=== PATIENT | male | born 1985 | race African-American/Black ===

== ENCOUNTER 2016-08-26 11:42 | Emergency (ER) | payer MEDICAID ==
[~2016-08-26] VITALS: Ht 147.3 cm; Wt 46.7 kg
[~2016-08-26 11:42] MED LIST: ACULAR 3 ML3 ML OPH; AMINOPHYLLIN200 MG PO; BLACK DRAUGHT PO; CALCIUM500 MG PO; CEFUROXIME AXE250 MG PO; CINNAMON ALPHA1 EACH PO; CIPRO500 MG PO; CIPROFLOXACIN500 M4 PO; CIPROFLOXACIN500 MG PO; CLARITIN10 MG PO; COLACE100 MG PO; FERROUS SULFAT325 M1 PO; FLUCONAZOLE100 MG PO; GLUCERNA 1.01500 ML PO; HUMULIN R100 U/ML; HUMULIN R100 U/ML SC; LANTUS100 U/ML SC; LEVEMIR10 ML SC; M2 ZINC 5050 MG PO; MACROBID100 M1 PO; MEGACE PO; MEGACE40 MG PO; MEGACE400 MG/10 PO; MIRALAX17 GM PO; MIRALAX17 GM/DOSE PO; MIRALAX17 GM/PACK PO; MOM30 ML PO; MULTIPLE VITAMI1 CAP PO; MYLANTA 150 ML150 M1 PO; Motrin,Rufen800 MG PO; NORVASC5 MG PO; NOVOLIN 70/30 710 ML; NOVOLIN R100 U/ML SC; NOVOLOG 70/30 M10 ML SC; NOVOLOG FLEX100 U/ML SC; NOVOLOG MIX 70/10 ML SC; NOVOLOG MIX 70/33 ML SC; ONDANSETRON4 M1 PO; ONE-TABLET-DAI1 EACH PO; OXY IR5 MG PO; OXYCODONE HCL5 M1 PO; OYSTER CALCIUM500 M1 PO; PAXIL20 MG PO; PAXIL40 M1 PO; PERCOCET 325 MG1 TA1 PO; PREDNISOLONE; PREDNISONE10 MG PO; SENNA CONCENTR8.6 M1 PO; VITAMIN C500 M4 PO; ZESTRIL10 MG PO; ZITHROMAX Z PA250 MG PO; ZOFRAN ODT4 MG SL; [UNRECOGNIZED DRUG - OTHER] TP
[2016-08-26] MEDS ORDERED: SENEXON-S 50 MG1 TAB PO (11:53)
[2016-08-26] MEDS ORDERED: HEALTHYLAX17 GM/Dose PO (11:53)
[2016-08-26 12:48] LABS: BUN 17 mg/dl (7-24); CARBON DIOXIDE 19 mmol/L (21-32); CHLORIDE 113 mmol/L (98-107); EST GLOM FILT AFRICAN AMERICAN > 60 ml/min; GLUCOSE 232 mg/dL (65-99); POTASSIUM 4.6 mmol/L (3.5-5.1); SODIUM 143 mmol/L (136-145)
[2016-08-26 12:59] LABS: HEMOGLOBIN 12.5 g/dl (14.0-18.0); MEAN CELL VOLUME 83.1 fl (80.0-94.0); MEAN CORPUSCULAR HGB 28.1 pg (27.0-31.0); MEAN CORPUSCULAR HGB CONC 33.8 g/dl (33.0-37.0); MEAN PLATELET VOLUME 10.2 fl (9.6-12.3); NUCLEATED RED BLOOD CELL 0.1 10*3/uL (0.0-0.0); NUCLEATED RED BLOOD CELL 1.6 % (0.0-0.0); PLATELET COUNT AUTOMATED 176 10*3/uL (130-400); RED BLOOD COUNT 4.45 10*6/uL (4.50-5.90); WHITE BLOOD COUNT 3.7 10*3/uL (4.8-10.8)
[2016-08-26 13:26] LABS: EOSINOPHIL # 0.1 10*3/uL (0-0.4); EOSINOPHILS 2 % (1-4); LYMPHOCYTE # 1.3 10*3/uL (1.3-4.4); MONOCYTE # 0.6 10*3/uL (0.1-1.0); NEUTROPHIL # 1.7 10*3/uL (2.3-7.9); NEUTROPHILS 47 % (47-73); TOTAL CELLS COUNTED 100 #CELLS
[2016-08-26 13:27] LABS: PLATELET SUFFICIENCY NORMAL (NORMAL)
[2016-08-26] MEDS ORDERED: ZITHROMAX250 MG PO (14:41)
[2016-09-20] MEDS ORDERED: CEFUROXIME AXE250 MG PO (20:47)
[2016-09-20] MEDS ORDERED: FLUCONAZOLE100 MG PO (20:47)
[2016-09-28] MEDS ORDERED: DOXYCYCLINE100 M3 PO (11:14)
[2016-09-28] MEDS ORDERED: FLUCONAZOLE100 MG PO (11:15)
[2016-10-01] MEDS ORDERED: CIPRO500 MG PO (09:05)
== END 2016-08-26 14:53 | disposition home or self-care (01) ==
LOC: ED 11:42
PROVIDERS: Emergency Medicine
DX: J40 Bronchitis, not specified as acute or chronic (principal); E11.65 Type 2 diabetes mellitus with hyperglycemia; Z90.49 Acquired absence of other specified parts of digestive tract; Z79.4 Long term (current) use of insulin; Z88.1 Allergy status to other antibiotic agents; Z88.2 Allergy status to sulfonamides; Z88.6 Allergy status to analgesic agent; Z91.040 Latex allergy status

== ENCOUNTER 2016-08-28 19:45 | Emergency (ER) | payer MEDICAID ==
[~2016-08-28] VITALS: Ht 147.3 cm; Wt 45.4 kg
[~2016-08-28 19:45] MED LIST changes: +HEALTHYLAX17 GM/Dose PO; +SENEXON-S 50 MG1 TAB PO; +ZITHROMAX250 MG PO
[2016-08-28 20:18] LABS: BASO % 0.2 % (0.0-1.0); EOS # 0.1 10*3/uL (0.0-0.4); EOS % 1.4 % (1.0-4.0); HEMATOCRIT 33.8 % (42.0-52.0); HEMOGLOBIN 11.3 g/dl (14.0-18.0); LYMPH # 1.1 10*3/uL (1.3-4.4); LYMPH % 26.7 % (27.0-41.0); MEAN CELL VOLUME 83.3 fl (80.0-94.0); MEAN CORPUSCULAR HGB 27.8 pg (27.0-31.0); MEAN CORPUSCULAR HGB CONC 33.4 g/dl (33.0-37.0); MEAN PLATELET VOLUME 10.2 fl (9.6-12.3); MONO # 0.4 10*3/uL (0.1-1.0); NEUT # 2.6 10*3/uL (2.3-7.9); NEUT % 61.5 % (47.0-73.0); PLATELET COUNT AUTOMATED 170 10*3/uL (130-400); RED BLOOD COUNT 4.06 10*6/uL (4.50-5.90); RED CELL DISTRI WIDTH 15.9 % (0-14.5); WHITE BLOOD COUNT 4.2 10*3/uL (4.8-10.8)
[2016-08-28 20:34] LABS: ALBUMIN 3.1 gm/dl (3.1-4.5); ALKALINE PHOSPHATASE 146 U/L (45-117); BILIRUBIN, TOTAL 0.4 mg/dl (0.2-1.0); BUN 16 mg/dl (7-24); CARBON DIOXIDE 20 mmol/L (21-32); CHLORIDE 100 mmol/L (98-107); EST GLOM FILT AFRICAN AMERICAN > 60 ml/min; GLUCOSE 327 mg/dL (65-99); POTASSIUM 4.1 mmol/L (3.5-5.1); SGOT/AST 17 IU/L (3-35); SGPT/ALT 25 U/L (12-78); SODIUM 132 mmol/L (136-145); TOTAL PROTEIN 7.2 gm/dL (6.4-8.2)
[2016-08-28] MEDS ORDERED: ROBITUSSIN AC 110 ML PO (21:08)
[2016-09-20] MEDS ORDERED: CEFUROXIME AXE250 MG PO (20:47)
[2016-09-20] MEDS ORDERED: FLUCONAZOLE100 MG PO (20:47)
[2016-09-28] MEDS ORDERED: DOXYCYCLINE100 M3 PO (11:14)
[2016-09-28] MEDS ORDERED: FLUCONAZOLE100 MG PO (11:15)
[2016-10-01] MEDS ORDERED: CIPRO500 MG PO (09:05)
== END 2016-08-28 22:18 | disposition home or self-care (01) ==
LOC: ED 19:45
PROVIDERS: Nurse Practitioner Family
DX: J06.9 Acute upper respiratory infection, unspecified (principal); D64.9 Anemia, unspecified; E10.9 Type 1 diabetes mellitus without complications; Z88.1 Allergy status to other antibiotic agents; Z91.040 Latex allergy status; Z88.6 Allergy status to analgesic agent; Z88.8 Allergy status to other drugs, medicaments and biological substances; Z79.899 Other long term (current) drug therapy

== ENCOUNTER → 2016-11-19 | Emergency (ER) | payer MEDICAID ==
[~2016-11-19] MED LIST changes: +DOXYCYCLINE100 M3 PO; +ROBITUSSIN AC 110 ML PO
[2016-11-19 12:43] LABS: BILIRUBIN NEGATIVE (NEGATIVE); BLOOD TRACE-INTACT (NEGATIVE); CLARITY CLOUDY (CLEAR); COLOR YELLOW (YELLOW); GLUCOSE 3+ (NEGATIVE); KETONE 1+ (NEGATIVE); NITRITE POSITIVE (NEGATIVE); PROTEIN TRACE (NEGATIVE); UROBILINOGEN 0.2 E.U./dl (0.2-1.0)
[2016-11-19 12:45] LABS: LEUKO ESTERASE NEGATIVE (NEGATIVE)
[2016-11-19 12:52] LABS: EPITHELIAL CELLS 0-2; RBC 0-2 rbc/hpf (0-2); WBC 0-2 wbc/hpf (0-5); YEAST 4+
[2016-11-19 12:53] LABS: URINE REFLEX COMMENT YES (NO)
[2016-11-19 13:11] LABS: BASO % 0.2 % (0.0-1.0); EOS # 0.1 10*3/uL (0.0-0.4); EOS % 1.6 % (1.0-4.0); HEMATOCRIT 37.1 % (42.0-52.0); HEMOGLOBIN 12.2 g/dl (14.0-18.0); LYMPH # 1.3 10*3/uL (1.3-4.4); LYMPH % 26.7 % (27.0-41.0); MEAN CELL VOLUME 89.2 fl (80.0-94.0); MEAN CORPUSCULAR HGB 29.3 pg (27.0-31.0); MEAN CORPUSCULAR HGB CONC 32.9 g/dl (33.0-37.0); MEAN PLATELET VOLUME 9.8 fl (9.6-12.3); MONO # 0.3 10*3/uL (0.1-1.0); MONO % 6.3 % (3.0-9.0); NEUT # 3.2 10*3/uL (2.3-7.9); NEUT % 64.8 % (47.0-73.0); PLATELET COUNT AUTOMATED 231 10*3/uL (130-400); RED BLOOD COUNT 4.16 10*6/uL (4.50-5.90); RED CELL DISTRI WIDTH 14.4 % (0-14.5)
[2016-11-19 13:27] LABS: ALBUMIN 2.9 gm/dl (3.1-4.5); ALKALINE PHOSPHATASE 255 U/L (45-117); BILIRUBIN, TOTAL 0.6 mg/dl (0.2-1.0); BUN 15 mg/dl (7-24); CARBON DIOXIDE 20 mmol/L (21-32); CHLORIDE 106 mmol/L (98-107); EST GLOM FILT AFRICAN AMERICAN > 60 ml/min; GLUCOSE 352 mg/dL (65-99); POTASSIUM 4.1 mmol/L (3.5-5.1); SGOT/AST 20 IU/L (3-35); SGPT/ALT 41 U/L (12-78); SODIUM 143 mmol/L (136-145); TOTAL PROTEIN 7.3 gm/dL (6.4-8.2)
== END ==
LOC: ED 12:11
PROVIDERS: Student in an Organized Health Care Education/Training Program
DX: B37.89 Other sites of candidiasis (principal); N39.0 Urinary tract infection, site not specified; E11.9 Type 2 diabetes mellitus without complications; F12.10 Cannabis abuse, uncomplicated; Z88.1 Allergy status to other antibiotic agents; Z88.2 Allergy status to sulfonamides; Z88.6 Allergy status to analgesic agent; Z91.040 Latex allergy status; Z79.4 Long term (current) use of insulin; Z93.6 Other artificial openings of urinary tract status

== ENCOUNTER 2016-11-24 14:34 | Emergency (ER) | payer MEDICAID ==
[~2016-11-24] VITALS: Ht 175.2 cm; Wt 68.0 kg
--- NOTE | ~2016-11-24 | EKG ---
[place], [place] ELECTROCARDIOGRAM REPORT NAME: REGINO CELIS UNIT #: [id number] ROOM: DOCTOR: IVAN PITTS MD BIRTHDATE: [birth year] DOS: 11/24/2016 TIME: 1522 hours. Normal sinus rhythm at 97 beats per minute. The tracing is normal. No previous tracing is available for comparison. IVAN PITTS MD CM:EKGRPT:ELECTROCARDIOGRAM REPORT [id number] IVAN PITTS MD
[2016-11-24 15:55] LABS: HEMOGLOBIN 11.9 g/dl (14.0-18.0); MEAN CELL VOLUME 85.8 fl (80.0-94.0); MEAN CORPUSCULAR HGB 29.2 pg (27.0-31.0); MEAN PLATELET VOLUME 9.7 fl (9.6-12.3); PLATELET COUNT AUTOMATED 237 10*3/uL (130-400); RED BLOOD COUNT 4.08 10*6/uL (4.50-5.90); RED CELL DISTRI WIDTH 13.7 % (0-14.5); WHITE BLOOD COUNT 5.1 10*3/uL (4.8-10.8)
[2016-11-24 16:10] LABS: ALBUMIN 2.8 gm/dl (3.1-4.5); ALKALINE PHOSPHATASE 208 U/L (45-117); BILIRUBIN, TOTAL 0.2 mg/dl (0.2-1.0); BUN 16 mg/dl (7-24); CARBON DIOXIDE 21 mmol/L (21-32); CHLORIDE 107 mmol/L (98-107); CPK 26 U/L (39-308); EST GLOM FILT AFRICAN AMERICAN > 60 ml/min; GLUCOSE 323 mg/dL (65-99); SGOT/AST 15 IU/L (3-35); SGPT/ALT 19 U/L (12-78); SODIUM 142 mmol/L (136-145)
[2016-11-24 16:17] LABS: TROPONIN I < 0.015 ng/ml (<0.045)
[2016-11-24 16:26] LABS: EOSINOPHIL # 0.2 10*3/uL (0-0.4); EOSINOPHILS 4 % (1-4); LYMPHOCYTE # 1.7 10*3/uL (1.3-4.4); MONOCYTE # 0.4 10*3/uL (0.1-1.0); NEUTROPHIL # 2.8 10*3/uL (2.3-7.9); NEUTROPHILS 55 % (47-73); PLATELET SUFFICIENCY NORMAL (NORMAL); TOTAL CELLS COUNTED 100 #CELLS
[2016-11-24 16:27] LABS: HYPOCHROMIA SLIGHT; POLYCHROMASIA SLIGHT
== END 2016-11-24 17:02 | disposition home or self-care (01) ==
LOC: ED 14:34
PROVIDERS: Student in an Organized Health Care Education/Training Program
DX: R07.9 Chest pain, unspecified (principal); G89.29 Other chronic pain; L89.153 Pressure ulcer of sacral region, stage 3; E11.9 Type 2 diabetes mellitus without complications; Z90.49 Acquired absence of other specified parts of digestive tract; Z88.1 Allergy status to other antibiotic agents; Z88.8 Allergy status to other drugs, medicaments and biological substances; Z88.5 Allergy status to narcotic agent; Z91.040 Latex allergy status; Z79.899 Other long term (current) drug therapy

== ENCOUNTER 2017-01-26 15:20 | Emergency (ER) | payer MEDICAID ==
[~2017-01-26] VITALS: Ht 175.2 cm; Wt 68.0 kg
[2017-01-26 15:53] LABS: BASO % 0.2 % (0.0-1.0); HEMATOCRIT 36.8 % (42.0-52.0); HEMOGLOBIN 12.4 g/dl (14.0-18.0); LYMPH # 1.5 10*3/uL (1.3-4.4); LYMPH % 35.5 % (27.0-41.0); MEAN CELL VOLUME 86.6 fl (80.0-94.0); MEAN CORPUSCULAR HGB 29.2 pg (27.0-31.0); MEAN CORPUSCULAR HGB CONC 33.7 g/dl (33.0-37.0); MEAN PLATELET VOLUME 9.4 fl (9.6-12.3); MONO # 0.2 10*3/uL (0.1-1.0); NEUT # 2.4 10*3/uL (2.3-7.9); NEUT % 58.3 % (47.0-73.0); PLATELET COUNT AUTOMATED 193 10*3/uL (130-400); RED BLOOD COUNT 4.25 10*6/uL (4.50-5.90); RED CELL DISTRI WIDTH 14.3 % (0-14.5); WHITE BLOOD COUNT 4.2 10*3/uL (4.8-10.8)
[2017-01-26 16:07] LABS: ALBUMIN 3.2 gm/dl (3.1-4.5); ALKALINE PHOSPHATASE 169 U/L (45-117); BILIRUBIN, TOTAL 0.3 mg/dl (0.2-1.0); BUN 20 mg/dl (7-24); CARBON DIOXIDE 23 mmol/L (21-32); CHLORIDE 105 mmol/L (98-107); EST GLOM FILT AFRICAN AMERICAN > 60 ml/min; GLUCOSE 399 mg/dL (65-99); POTASSIUM 3.9 mmol/L (3.5-5.1); SGOT/AST 16 IU/L (3-35); SGPT/ALT 27 U/L (12-78); SODIUM 141 mmol/L (136-145); TOTAL PROTEIN 7.1 gm/dL (6.4-8.2)
== END 2017-01-26 17:39 | disposition home or self-care (01) ==
LOC: ED 15:20
PROVIDERS: Registered Nurse
DX: E11.65 Type 2 diabetes mellitus with hyperglycemia (principal); H54.0 Blindness, both eyes; L89.159 Pressure ulcer of sacral region, unspecified stage; Z90.49 Acquired absence of other specified parts of digestive tract; Z79.899 Other long term (current) drug therapy; Z88.1 Allergy status to other antibiotic agents; Z88.8 Allergy status to other drugs, medicaments and biological substances; Z88.5 Allergy status to narcotic agent; Z91.040 Latex allergy status

== ENCOUNTER 2017-02-16 12:27 | Emergency (ER) | payer MEDICAID ==
[~2017-02-16] VITALS: Ht 175.2 cm; Wt 72.6 kg
[~2017-02-16 12:27] MED LIST changes: +AMPICILLIN500 MG PO; +HUMALOG100 U/ML SC; +KEFLEX500 M1 PO
[2017-02-16 13:00] LABS: BILIRUBIN NEGATIVE (NEGATIVE); BLOOD 1+ (NEGATIVE); CLARITY CLOUDY (CLEAR); COLOR YELLOW (YELLOW); GLUCOSE 3+ (NEGATIVE); KETONE NEGATIVE (NEGATIVE); LEUKO ESTERASE 2+ (NEGATIVE); NITRITE POSITIVE (NEGATIVE); PROTEIN TRACE (NEGATIVE); UROBILINOGEN 0.2 E.U./dl (0.2-1.0)
[2017-02-16 13:22] LABS: YEAST 4+
[2017-02-16 13:23] LABS: BACTERIA 3+
[2017-02-16 13:24] LABS: RBC 16-20 rbc/hpf (0-2); URINE REFLEX COMMENT YES (NO); WBC 16-20 wbc/hpf (0-5)
[2017-02-16] MEDS ORDERED: CEPHALEXIN500 M1 PO (13:35)
== END 2017-02-16 16:05 | disposition home or self-care (01) ==
LOC: ED 12:27
PROVIDERS: Emergency Medicine
DX: T36.0X5A Adverse effect of penicillins, initial encounter (principal); K59.00 Constipation, unspecified; B37.9 Candidiasis, unspecified; Y92.9 Unspecified place or not applicable; E11.9 Type 2 diabetes mellitus without complications; Z90.49 Acquired absence of other specified parts of digestive tract; Z88.1 Allergy status to other antibiotic agents; Z88.2 Allergy status to sulfonamides; Z88.8 Allergy status to other drugs, medicaments and biological substances; Z91.040 Latex allergy status; Z79.82 Long term (current) use of aspirin; Z79.899 Other long term (current) drug therapy; Z79.4 Long term (current) use of insulin

== ENCOUNTER 2017-04-07 01:54 | Inpatient (IN) | payer MEDICAID ==
[2017-04-07] VITALS (7 sets, daily range): BP systolic 100–129; BP diastolic 63–83
[~2017-04-07] VITALS: Ht 147.3 cm; Wt 50.0 kg
[~2017-04-07 01:54] MED LIST changes: +CEPHALEXIN500 M1 PO; +LANTUS SOL100 UNIT/1 SC
[2017-04-07 02:47] LABS: BASO % 0.2 % (0.0-1.0); EOS # 0.1 10*3/uL (0.0-0.4); EOS % 2.2 % (1.0-4.0); HEMATOCRIT 33.8 % (42.0-52.0); HEMOGLOBIN 11.4 g/dl (14.0-18.0); LYMPH # 1.8 10*3/uL (1.3-4.4); LYMPH % 34.6 % (27.0-41.0); MEAN CELL VOLUME 87.3 fl (80.0-94.0); MEAN CORPUSCULAR HGB 29.5 pg (27.0-31.0); MEAN CORPUSCULAR HGB CONC 33.7 g/dl (33.0-37.0); MEAN PLATELET VOLUME 9.6 fl (9.6-12.3); MONO # 0.3 10*3/uL (0.1-1.0); MONO % 5.9 % (3.0-9.0); NEUT # 2.9 10*3/uL (2.3-7.9); NEUT % 56.7 % (47.0-73.0); PLATELET COUNT AUTOMATED 216 10*3/uL (130-400); RED BLOOD COUNT 3.87 10*6/uL (4.50-5.90); RED CELL DISTRI WIDTH 13.6 % (0-14.5); WHITE BLOOD COUNT 5.1 10*3/uL (4.8-10.8)
[2017-04-07 03:05] LABS: ACT PARTIAL THROMBO TIME 24.9 SECONDS (20.8-31.5)
[2017-04-07 03:11] LABS: ALBUMIN 2.9 gm/dl (3.1-4.5); ALKALINE PHOSPHATASE 151 U/L (45-117); BUN 16 mg/dl (7-24); CHLORIDE 106 mmol/L (98-107); CREATININE 0.49 mg/dL (0.70-1.30); LIPASE 132 U/L (73-393); POTASSIUM 3.6 mmol/L (3.5-5.1); SGOT/AST 13 IU/L (3-35); SGPT/ALT 24 U/L (12-78); SODIUM 136 mmol/L (136-145); TOTAL PROTEIN 7.5 gm/dL (6.4-8.2)
[2017-04-07 03:13] LABS: TROPONIN I < 0.015 ng/ml (<0.045)
--- NOTE | 2017-04-07 04:30 | NUR ---
A 31, admitted to , under the services of ELIZABETH Mackenzie DO with a diagnosis of DKA. Chief complaint is LEFT SIDE FACE NUMB. Patient arrived via bed from ER. Monitor applied. Initial assessment completed. Vital signs taken and recorded. ELIZABETH MACKENZIE DO / DR SILVERIO notified of admission to the unit. Orders received. See assessment for past medical history, medications and allergies. Patient and/or family oriented to unit. [facility] visitation policy reviewed. Clothing/patient valuable form completed. LEROY KNIGHT
--- NOTE | 2017-04-07 04:40 | NUR ---
WHILE POSITIONING PATIENT FOR COMFORT, BED BUGS X 2 NOTED. BELONGINGS DOUBLE BAGGED AND PATIENT BATHED PER POLICY
--- NOTE | 2017-04-07 04:45 | NUR ---
C/O PAIN AND SWEELING AT MEDIPORT SITE. PATIENT STATES "IT HASN'T FELT RIGHT" SINCE THEY ACCESSED PORT. NEEDLE REMOVED.
--- NOTE | 2017-04-07 05:00 | NUR ---
PATIENT UNSURE OF HOME MEDS
--- NOTE | 2017-04-07 06:00 | NUR ---
BSG 135. INSULIN DRIP HELD. WILL MONITOR
--- NOTE | 2017-04-07 06:48 | NUR ---
DR PEREZ CONTACTED AND INFORMED OF BSG 135 AND INSULIN DRIP HELD. ALSO INFORMED OF COCCYX WOUNDS X 2 AND INFORMED OF NEED FOR ORDERS. PER DR PEREZ, HE WILL PASS ON TO DAY SHIFT
[2017-04-07 06:57] LABS: BUN 16 mg/dl (7-24); CHLORIDE 108 mmol/L (98-107); CREATININE 0.49 mg/dL (0.70-1.30); POTASSIUM 3.4 mmol/L (3.5-5.1); SODIUM 141 mmol/L (136-145)
[2017-04-07 06:58] LABS: TROPONIN I < 0.015 ng/ml (<0.045)
[2017-04-07 07:06] LABS: THYROID STIM HORMONE (HS) 1.8 uIU/ml (0.358-4.75)
[2017-04-07 08:01] LABS: VITAMIN D, 25-HYDROXY 32.7 ng/mL (30-100)
--- NOTE | 2017-04-07 08:30 | NUR ---
HOB ELEVATED, EASY RESPIRATIONS WITH SKIN W/D. PT STATES "FEELING ALOT BETTER" BS 119 & PT STATES IS TOO LOW FOR HIM & REQUEST ORANGE JUICE. OFFERED TO ORDER BREAKFAST, PT DECLINES AT THIS TIME. IVF PER ORDERS. SEE SHIFT ASSESSMENT.
[2017-04-07 10:26] LABS: BUN 14 mg/dl (7-24); CHLORIDE 111 mmol/L (98-107); CREATININE 0.37 mg/dL (0.70-1.30); POTASSIUM 3.8 mmol/L (3.5-5.1); SODIUM 141 mmol/L (136-145)
--- NOTE | 2017-04-07 12:17 | NUR ---
SPOKE WITH PATIENCE MGOR PHARMACIST TO UPDATE MED LIST. MOST OF MEDS HAVE NOT BEEN FILLED FOR SEVERAL MONTHS. SPOKE WITH PTS RENETTA GARCIA REGARDING A UPDATED LIST OF HOME MEDS, SHE STATES SHE WILL BE IN LATER TODAY & BRING LIST. WILL INFORM DR COSTA.
[2017-04-07 12:22] LABS: POTASSIUM 4.1 mmol/L (3.5-5.1)
[2017-04-07 12:27] LABS: TROPONIN I < 0.015 ng/ml (<0.045)
[2017-04-07] MEDS ORDERED: PAXIL40 M1 PO (12:31)
[2017-04-07] MEDS ORDERED: PRAVACHOL20 MG PO (12:31)
--- NOTE | 2017-04-07 12:32 | NUR ---
HOME MEDICATION LISTED UPDATED & VERIFIED WITH PTS AUNT & POA JOSE MAI.
--- NOTE | 2017-04-07 12:49 | NUR ---
LATE ENTRY--- SPOKE WITH DR Daniela TOMAS REGARDING NEED FOR WOUND ORDERS EARLIER THIS SHIFT.
--- NOTE | 2017-04-07 15:53 | NUR ---
DR TOMAS INFORMED OF CONVERSATION I HAD EARLIER WITH PTS AUNT/POA WHO VOICED THAT SHE WOULD LIKE TO TRY TO PLACE THIS PT IN A FACILITY.
--- NOTE | 2017-04-07 18:45 | NUR ---
NO OBVIOUS CHANGES NOTED THIS SHIFT. SPOKE WITH DR TOMAS AT PTS REQUEST FOR SOMETING OTHER THAN TYLENOL FOR DISCOMFORT. PT STATES HE TAKES OXYCODONE AT HOME BUT THIS MED IS NOT ON MED LIST PER PATIENCE LYNCH & IS AN OUTDATED/COMPLETED PRESCRIPTION.
--- NOTE | 2017-04-07 21:21 | NUR ---
I SPOKE WITH DR. LU ABOUT THE PATEINT AND THE REQUEST FOR OXY 5MG. DR. LU WAS GIVEN DIRECT INSTRUCTIONS FROM DR. COSTA TO NOT GIVE ANY OPIATES TO THE PATIENT. DR. LU WAS INFORMED ABOUT THE PATIENTS CLOUDY, JUNKY URINE, UA WAS ORDERED. TORADOL ORDERED FOR PAIN.
[2017-04-08] VITALS: BP 133/85
--- NOTE | 2017-04-08 06:59 | NUR ---
PATIENT STATED THAT HE DOESN'T WANT IS COVERAGE TILL RIGHT BEFORE BREAKFAST.
[2017-04-08 07:27] LABS: BASO % 0.3 % (0.0-1.0); EOS # 0.1 10*3/uL (0.0-0.4); EOS % 2.8 % (1.0-4.0); LYMPH # 1.7 10*3/uL (1.3-4.4); LYMPH % 42.8 % (27.0-41.0); MEAN CELL VOLUME 90.3 fl (80.0-94.0); MEAN CORPUSCULAR HGB CONC 33.2 g/dl (33.0-37.0); MEAN PLATELET VOLUME 10.3 fl (9.6-12.3); MONO # 0.4 10*3/uL (0.1-1.0); NEUT # 1.7 10*3/uL (2.3-7.9); NEUT % 44.6 % (47.0-73.0); PLATELET COUNT AUTOMATED 185 10*3/uL (130-400); RED CELL DISTRI WIDTH 13.8 % (0-14.5); WHITE BLOOD COUNT 3.9 10*3/uL (4.8-10.8)
[2017-04-08 07:29] LABS: HEMOGLOBIN 9.3 g/dl (14.0-18.0)
[2017-04-08 07:38] LABS: CHLORIDE 111 mmol/L (98-107); POTASSIUM 4.1 mmol/L (3.5-5.1); SODIUM 140 mmol/L (136-145)
[2017-04-08 07:43] LABS: BUN 10 mg/dl (7-24); CREATININE 0.55 mg/dL (0.70-1.30)
[2017-04-08 08:00] VITALS: BP 106/68
--- NOTE | 2017-04-08 09:54 | NUR ---
VIMALREGINO Mitchell [id number] Please refer to the physician's history and physical for past medical history, comorbid conditions, and allergies. Diagnosis: DKA NUMBNESS OF FACE Dwaine Score: 9,VERY HIGH RISK WOUND DESCRIPTIONS: Location of the wound: Left coccyx Type of wound: Stage III Thickness: Full Size: 4.5cm x 2cm x 0.2cm Tunneling: none Undermining: none Sinus Tract: none Presence of Exudate: Serosanguinous Amount: Moderate Color: Yellow, Herreid Odor: None Periwound Skin Appearance: Normal Wound edges: approximated Pain (associated with wound): Patient denies at the time of assessment How does patient state this happened? Patient states he has a hard time turning and lays on his back most of the time Location of the wound: Medial coccyx Type of wound: Stage III Thickness: Full Size: 1cm x 0.5cm x 0.5cm Tunneling: none Undermining: none Sinus Tract: none Presence of Exudate: Serosanguinous Amount: Moderate Color: Yellow Odor: None Periwound Skin Appearance: Erythema Wound edges: approximated Pain (associated with wound): Patient denies pain at time of assessment Surface the patient is resting on: Position Pro SKIN PREVENTION RECOMMENDATION: 1. Pressure redistribution support surface as appropriate 2. Elevate heels 3. Remove boots/TEDS every shift and reapply 4. Head of bed 30 degrees as tolerated 5. Assess nutrition and hydration 6. Manage moisture 7. Avoid the use of containment devices while in bed 8. Use absorptive products on surfaces limit layers of linens on bed 9. Turn and reposition every 1-2 hours in bed and every 1 hour in chair as tolerated 10. Weight shifts every 15 minutes while up in chair 11. Offloading with pillows or device to keep heels elevated off bed 12. Monitor skin at least every shift 13. Inspect under medical devices twice a day WOUND TREATMENT RECOMMENDATIONS: Continue current wound care orders
[2017-04-08] MEDS ORDERED: LANTUS SOL100 UNIT/1 SC (10:46)
--- NOTE | 2017-04-08 11:08 | NUR ---
I spoke with pt Aunt Anisa Torres regarding order for discharge to home. She states to send him home via [facility] and to call her again when they pick him up.
--- NOTE | 2017-04-08 13:00 | NUR ---
AMBULANCE HERE TO TRANSPORT PATIENT HOME AT THIS TIME.
== END 2017-04-08 13:00 | disposition home or self-care (01) | DRG 638 ==
LOC: ED 01:54 → EDHOLD 03:31 → 5E 03:49
PROVIDERS: Internal Medicine; Student in an Organized Health Care Education/Training Program; ADMIT Internal Medicine
DX: E10.10 Type 1 diabetes mellitus with ketoacidosis without coma (principal); E44.0 Moderate protein-calorie malnutrition; E10.42 Type 1 diabetes mellitus with diabetic polyneuropathy; D64.9 Anemia, unspecified; G89.29 Other chronic pain; E10.39 Type 1 diabetes mellitus with other diabetic ophthalmic complication; H54.0 Blindness, both eyes; Z90.49 Acquired absence of other specified parts of digestive tract; Z83.3 Family history of diabetes mellitus; Z88.2 Allergy status to sulfonamides; Z91.040 Latex allergy status; Z88.8 Allergy status to other drugs, medicaments and biological substances; Z79.899 Other long term (current) drug therapy; Z68.24 Body mass index [BMI] 24.0-24.9, adult

== ENCOUNTER 2017-10-01 15:21 | Emergency (ER) | payer MEDICAID ==
[~2017-10-01] VITALS: Ht 149.8 cm; Wt 56.7 kg
[~2017-10-01 15:21] MED LIST changes: +PRAVACHOL20 MG PO
== END 2017-10-01 17:24 | disposition home or self-care (01) ==
LOC: ED 15:21
DX: E11.641 Type 2 diabetes mellitus with hypoglycemia with coma (principal); E11.10 Type 2 diabetes mellitus with ketoacidosis without coma; G89.29 Other chronic pain; Z88.2 Allergy status to sulfonamides; Z91.040 Latex allergy status; Z88.5 Allergy status to narcotic agent; Z88.8 Allergy status to other drugs, medicaments and biological substances; Z79.4 Long term (current) use of insulin; Z79.899 Other long term (current) drug therapy; Z90.49 Acquired absence of other specified parts of digestive tract

== ENCOUNTER → 2017-10-05 | Outpatient (CLI) | payer MEDICAID | END | disposition home or self-care (01) | LOC: CT 09:38 | DX: N39.0 Urinary tract infection, site not specified (principal) ==

== ENCOUNTER 2018-01-18 20:02 | Emergency (ER) | payer MEDICAID ==
[~2018-01-18] VITALS: Ht 149.8 cm; Wt 59.0 kg
[2018-01-18] MEDS ORDERED: DOXYCYCLINE100 M3 PO (20:06)
[2018-01-18] MEDS ORDERED: OXYCONTIN10 M1 PO (20:08)
== END 2018-01-19 00:54 | disposition home or self-care (01) ==
LOC: ED 20:02
DX: E11.65 Type 2 diabetes mellitus with hyperglycemia (principal); G43.809 Other migraine, not intractable, without status migrainosus; G89.29 Other chronic pain; G62.9 Polyneuropathy, unspecified; L89.153 Pressure ulcer of sacral region, stage 3; Z90.49 Acquired absence of other specified parts of digestive tract; Z79.899 Other long term (current) drug therapy; Z79.4 Long term (current) use of insulin; Z88.1 Allergy status to other antibiotic agents; Z88.6 Allergy status to analgesic agent; Z88.5 Allergy status to narcotic agent; Z91.040 Latex allergy status

== ENCOUNTER → 2018-05-28 | Outpatient (CLI) | payer MEDICAID ==
[~2018-05-28] MED LIST changes: +EFFEXOR XR37.5 M1 PO; +ERTAPENEM1 GM IV; +LANTUS SOL100 UNIT/1 SQ; +LASIX20 MG PO; +NORVASC2.5 MG PO; +OXYCONTIN10 M1 PO; +PEPCID20 MG PO; +REMERON15 M2 PO; +TOPROL XL50 M1 PO
[2018-05-28 15:28] LABS: BASO % 0.2 % (0.0-1.0); EOS # 0.1 10*3/uL (0.0-0.4); EOS % 2.7 % (1.0-4.0); HEMATOCRIT 36.5 % (42.0-52.0); HEMOGLOBIN 12.3 g/dl (14.0-18.0); LYMPH # 1.7 10*3/uL (1.3-4.4); MEAN CELL VOLUME 89.2 fl (80.0-94.0); MEAN CORPUSCULAR HGB 30.1 pg (27.0-31.0); MEAN CORPUSCULAR HGB CONC 33.7 g/dl (33.0-37.0); MEAN PLATELET VOLUME 9.4 fl (9.6-12.3); MONO # 0.3 10*3/uL (0.1-1.0); MONO % 6.9 % (3.0-9.0); NEUT # 2.6 10*3/uL (2.3-7.9); PLATELET COUNT AUTOMATED 219 10*3/uL (130-400); RED BLOOD COUNT 4.09 10*6/uL (4.50-5.90); RED CELL DISTRI WIDTH 13.4 % (0-14.5); WHITE BLOOD COUNT 4.8 10*3/uL (4.8-10.8)
[2018-05-28 15:47] LABS: ALKALINE PHOSPHATASE 188 U/L (45-117); BUN 16 mg/dl (7-24); CHLORIDE 105 mmol/L (98-107); CREATININE 0.66 mg/dL (0.70-1.30); POTASSIUM 3.8 mmol/L (3.5-5.1); SGOT/AST 17 IU/L (3-35); SGPT/ALT 19 U/L (12-78); SODIUM 137 mmol/L (136-145); TOTAL PROTEIN 7.6 gm/dL (6.4-8.2)
== END | disposition home or self-care (01) ==
LOC: LAB 14:55 → US 15:00
PROVIDERS: Urology
DX: N28.89 Other specified disorders of kidney and ureter (principal); R10.2 Pelvic and perineal pain; I10 Essential (primary) hypertension

== ENCOUNTER 2018-07-25 21:20 | Emergency (ER) | payer MEDICAID ==
[~2018-07-25] VITALS: Ht 149.8 cm; Wt 54.4 kg
[2018-07-25 21:48] LABS: BASO % 0.5 % (0.0-1.0); EOS # 0.2 10*3/uL (0.0-0.4); EOS % 4.3 % (1.0-4.0); HEMATOCRIT 30.2 % (42.0-52.0); HEMOGLOBIN 9.9 g/dl (14.0-18.0); LYMPH # 1.2 10*3/uL (1.3-4.4); MEAN CELL VOLUME 90.7 fl (80.0-94.0); MEAN CORPUSCULAR HGB 29.7 pg (27.0-31.0); MEAN CORPUSCULAR HGB CONC 32.8 g/dl (33.0-37.0); MEAN PLATELET VOLUME 9.1 fl (9.6-12.3); MONO # 0.4 10*3/uL (0.1-1.0); NEUT # 2.6 10*3/uL (2.3-7.9); PLATELET COUNT AUTOMATED 196 10*3/uL (130-400); RED BLOOD COUNT 3.33 10*6/uL (4.50-5.90); RED CELL DISTRI WIDTH 13.2 % (0-14.5); WHITE BLOOD COUNT 4.4 10*3/uL (4.8-10.8)
[2018-07-25 22:05] LABS: ALBUMIN 2.3 gm/dl (3.1-4.5); ALKALINE PHOSPHATASE 149 U/L (45-117); BUN 13 mg/dl (7-24); CHLORIDE 113 mmol/L (98-107); CREATININE 0.64 mg/dL (0.70-1.30); POTASSIUM 3.9 mmol/L (3.5-5.1); SGOT/AST 16 IU/L (3-35); SGPT/ALT 24 U/L (12-78); SODIUM 143 mmol/L (136-145); TOTAL PROTEIN 6.1 gm/dL (6.4-8.2)
[2018-07-26 02:13] LABS: BILIRUBIN NEGATIVE (NEGATIVE); BLOOD NEGATIVE (NEGATIVE); CLARITY CLOUDY (CLEAR); COLOR YELLOW (YELLOW); GLUCOSE 2+ (NEGATIVE); KETONE NEGATIVE (NEGATIVE); LEUKO ESTERASE NEGATIVE (NEGATIVE); NITRITE NEGATIVE (NEGATIVE); PH 6.5 (5.0-9.0); UROBILINOGEN 0.2 E.U./dl (0.2-1.0)
[2018-07-26 02:33] LABS: YEAST 4+
== END 2018-07-26 02:32 | disposition short-term general hospital (02) ==
LOC: ED 21:20
PROVIDERS: Student in an Organized Health Care Education/Training Program
DX: L27.0 Generalized skin eruption due to drugs and medicaments taken internally (principal); T36.8X5A Adverse effect of other systemic antibiotics, initial encounter; G89.29 Other chronic pain; E11.39 Type 2 diabetes mellitus with other diabetic ophthalmic complication; Z88.2 Allergy status to sulfonamides; Z91.048 Other nonmedicinal substance allergy status; Z88.8 Allergy status to other drugs, medicaments and biological substances; Z88.6 Allergy status to analgesic agent; Z88.1 Allergy status to other antibiotic agents; Z91.040 Latex allergy status; Z79.899 Other long term (current) drug therapy; Z90.49 Acquired absence of other specified parts of digestive tract; Z93.6 Other artificial openings of urinary tract status; Y92.89 Other specified places as the place of occurrence of the external cause

== ENCOUNTER 2018-11-25 23:05 | Inpatient (IN) | payer MEDICAID ==
[~2018-11-25] VITALS: Ht 149.9 cm; Wt 57.2 kg
--- NOTE | ~2018-11-25 | PR ---
[place], [place] PROGRESS NOTE NAME: REGINO CELIS [facility] #: [id number] UNIT #: [id number] ROOM: 427 DOCTOR: LARON LU DPM BIRTHDATE: [birth year] DOS: 11/27/2018 SUBJECTIVE: The patient presents with chief complaint of blood blister of first right toe and lateral right leg wound. The patient has a current visit medical history of diabetic ketoacidosis, elevated alkaline phosphatase level, hematuria, hypotension, severe calorie malnutrition, tachycardia, and UTI. 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 PAST SURGICAL HISTORY: History of urostomy, history of laparoscopic cholecystectomy. SOCIAL HISTORY: The patient had a history of alcohol, but quit in 2008. The patient smokes marijuana. Denies tobacco. FAMILY HISTORY: Mother, type 2 diabetes, age 40-50. Father, healthy age 50-60. LOWER EXTREMITY EXAMINATION: Pedal pulses are palpable. Capillary fill time within normal limits. Lateral right leg wound, approximately 3 x 2 x 0.1 cm. No signs of fluctuance or abscess. There is a blood blister noted to the plantar aspect of the right hallux. No signs of surrounding erythema or fluctuance. No signs of local cellulitis or abscess. ASSESSMENT: Contusion, blood blister hematoma first right toe, ulceration lateral right leg. PLAN: Evaluation and management. Continue local wound care with dressings and will reappoint for followup. LARON LU DPM CM:PNGERRY [id number] LARON LU DPM 12/03/18 0924 interface
[2018-11-25 23:07] VITALS: BP 122/70
[2018-11-25 23:31] LABS: BILIRUBIN NEGATIVE (NEGATIVE); BLOOD 1+ (NEGATIVE); CLARITY CLOUDY (CLEAR); COLOR YELLOW (YELLOW); GLUCOSE 3+ (NEGATIVE); KETONE 3+ (NEGATIVE); LEUKO ESTERASE NEGATIVE (NEGATIVE); NITRITE POSITIVE (NEGATIVE); PH 5.5 (5.0-9.0); UROBILINOGEN 0.2 E.U./dl (0.2-1.0)
[2018-11-25 23:40] LABS: BACTERIA 4+; RBC 51-100 rbc/hpf (0-2); WBC 16-20 wbc/hpf (0-5); YEAST 3+
[2018-11-25 23:55] VITALS: BP 105/67
[2018-11-26] VITALS (8 sets, daily range): BP systolic 91–120; BP diastolic 47–74
[2018-11-26] LABS: BASO % 0.3 % (0.0-1.0); EOS # 0.1 10*3/uL (0.0-0.4); HEMATOCRIT 33.1 % (42.0-52.0); HEMOGLOBIN 10.7 g/dl (14.0-18.0); LYMPH # 1.7 10*3/uL (1.3-4.4); LYMPH % 24.3 % (27.0-41.0); MEAN CELL VOLUME 89.5 fl (80.0-94.0); MEAN CORPUSCULAR HGB 28.9 pg (27.0-31.0); MEAN CORPUSCULAR HGB CONC 32.3 g/dl (33.0-37.0); MEAN PLATELET VOLUME 9.6 fl (9.6-12.3); MONO # 0.5 10*3/uL (0.1-1.0); MONO % 7.2 % (3.0-9.0); NEUT # 4.6 10*3/uL (2.3-7.9); NEUT % 65.6 % (47.0-73.0); PLATELET COUNT AUTOMATED 251 10*3/uL (130-400); RED CELL DISTRI WIDTH 13.7 % (0-14.5); WHITE BLOOD COUNT 7.1 10*3/uL (4.8-10.8)
[2018-11-26 00:15] LABS: ALBUMIN 2.6 gm/dl (3.1-4.5); ALKALINE PHOSPHATASE 205 U/L (45-117); BUN 27 mg/dl (7-24); CHLORIDE 99 mmol/L (98-107); CREATININE 0.76 mg/dL (0.70-1.30); POTASSIUM 4.9 mmol/L (3.5-5.1); SGOT/AST 11 IU/L (3-35); SGPT/ALT 14 U/L (12-78); SODIUM 132 mmol/L (136-145); TOTAL PROTEIN 6.9 gm/dL (6.4-8.2)
--- NOTE | 2018-11-26 00:37 | NUR ---
PT RESTING QUIETLY---ARINA HER RN
--- NOTE | 2018-11-26 01:20 | NUR ---
UROSTOMY PATENT AND EMPTIED FOR 1000 CC CLOUDY YELLOW URINE WITH SEDIMENT.REPEAT BLOOD GLUCOSE,CRITICAL HIGH,DR DANIELSON MADE AWARE.MRSA SWAB DONE.PT BEING ADMITTED TO ICU.---ARINA HER RN
--- NOTE | 2018-11-26 02:15 | NUR ---
A 33, admitted to ICCU, under the services of NAZIA Christiansen DO with a diagnosis of DKA. Chief complaint is NAUSEA AND VOMITING. Patient arrived via stretcher from ER. Monitor applied. Initial assessment completed. Vital signs taken and recorded. NAZIA CHRISTIANSEN DO notified of admission to the unit. Orders received. See assessment for past medical history, medications and allergies. Patient and/or family oriented to unit. [facility] visitation policy reviewed. Clothing/patient valuable form completed. SHERIDAN THAYER
[2018-11-26] MEDS ORDERED: HUMALOG100 UNIT/2 SQ (04:10)
[2018-11-26 05:06] LABS: BASO % 0.1 % (0.0-1.0); EOS % 0.4 % (1.0-4.0); HEMOGLOBIN 9.8 g/dl (14.0-18.0); LYMPH # 1.1 10*3/uL (1.3-4.4); LYMPH % 16.2 % (27.0-41.0); MEAN CELL VOLUME 90.9 fl (80.0-94.0); MEAN CORPUSCULAR HGB 28.7 pg (27.0-31.0); MEAN CORPUSCULAR HGB CONC 31.6 g/dl (33.0-37.0); MEAN PLATELET VOLUME 9.6 fl (9.6-12.3); MONO # 0.3 10*3/uL (0.1-1.0); NEUT # 5.3 10*3/uL (2.3-7.9); NEUT % 77.4 % (47.0-73.0); PLATELET COUNT AUTOMATED 237 10*3/uL (130-400); RED BLOOD COUNT 3.41 10*6/uL (4.50-5.90); RED CELL DISTRI WIDTH 13.6 % (0-14.5); WHITE BLOOD COUNT 6.8 10*3/uL (4.8-10.8)
[2018-11-26 05:15] LABS: ACT PARTIAL THROMBO TIME 37.7 SECONDS (20.8-31.5)
[2018-11-26 05:23] LABS: ALBUMIN 2.2 gm/dl (3.1-4.5); BUN 22 mg/dl (7-24); CHLORIDE 107 mmol/L (98-107); PHOSPHOROUS 3.2 mg/dL (2.5-4.9); SGOT/AST 9 IU/L (3-35); SGPT/ALT 12 U/L (12-78); SODIUM 138 mmol/L (136-145); TOTAL PROTEIN 6.5 gm/dL (6.4-8.2)
[2018-11-26 05:24] LABS: ALKALINE PHOSPHATASE 192 U/L (45-117); HDL CHOLESTEROL 35 mg/dl (40-60)
[2018-11-26 05:30] LABS: CHOLESTEROL 175 mg/dL (<200); FREE T4 1.12 ng/dl (0.76-1.46); LDL CHOLESTEROL 121 mg/dL (9-159); THYROID STIM HORMONE (HS) 0.986 uIU/ml (0.358-4.75); TRIGLYCERIDES 93 mg/dl (<150); VLDL CHOLESTEROL 19 mg/dL (6-40)
--- NOTE | 2018-11-26 08:00 | NUR ---
REMAINS ON INSULIN DRIP WITH Q1 HOUR BLOOD SUGARS, ALERT AND ORIENTED, COOPERATIVE, TURNED AND REPOSITIONED, 3 WOUNDS EVUAL BY WOUND CARE, UROSTOMY SECURE, IV FLUIDS VIA L MEDIPORT
[2018-11-26 08:22] LABS: BUN 22 mg/dl (7-24); CHLORIDE 107 mmol/L (98-107); POTASSIUM 4.6 mmol/L (3.5-5.1); SODIUM 138 mmol/L (136-145)
[2018-11-26 08:39] LABS: VITAMIN D, 25-HYDROXY 11.8 ng/mL (30-100)
--- NOTE | 2018-11-26 09:22 | NUR ---
REGINO CELIS [id number] Please refer to the physician's history and physical for past medical history, comorbid conditions, and allergies. Diagnosis: DKA Dwaine Score: , WOUND DESCRIPTIONS: Location of the wound: COCCYX Type of wound: STAGE 4 Thickness: Full Size: 0.5cm X 0.5cm X 0.4cm Tunneling: NONE Undermining: NONE Sinus Tract: NONE Presence of Exudate: Serous Amount: Light Color: Red Odor: None Periwound Skin Appearance: Erythema Wound edges: APPROXIMATED Pain (associated with wound): DENIED AT TIME OF ASSESSMENT How does patient state this happened? PATIENT UNSURE HOW THIS HAPPENED. Location of the wound: RIGHT LATERAL LOWER LEG Thickness: Partial Size: 3.0cm X 2.0cm X 0.1cm Tunneling: NONE Undermining: NONE Sinus Tract: NONE Presence of Exudate: Sanguineous Amount: Light Color: Red Odor: None Periwound Skin Appearance: Scar Wound edges: APPROXIMATED Pain (associated with wound): DENIED AT TIME OF ASSESSMENT How does patient state this happened? PATIENT UNSURE HOW THIS HAPPENED. If wound is on legs/feet or hands, capillary refill time, pulses, color temp, sensation: CAP REFILL < 3 SECONDS. Location of the wound: RIGHT GREAT TOE Thickness: Full Size: 1.5cm X 2.3cm X <0.1cm Tunneling: NONE Undermining: NONE Sinus Tract: NONE Presence of Exudate:NONE Amount: None Color: Black Odor: None Periwound Skin Appearance: Normal Wound edges: CLOSED Pain (associated with wound): DENIED AT TIME OF ASSESSMENT How does patient state this happened? PATIENT UNSURE HOW THIS HAPPENED. If wound is on legs/feet or hands, capillary refill time, pulses, color temp, sensation: CAP REFILL < 3 SECONDS. Surface the patient is resting on: XPRT SKIN PREVENTION RECOMMENDATION: 1. Pressure redistribution support surface as appropriate 2. Elevate heels 3. Remove boots/TEDS every shift and reapply 4. Head of bed 30 degrees as tolerated 5. Assess nutrition and hydration 6. Manage moisture 7. Avoid the use of containment devices while in bed 8. Use absorptive products on surfaces limit layers of linens on bed 9. Turn and reposition every 1-2 hours in bed and every 1 hour in chair as tolerated 10. Weight shifts every 15 minutes while up in chair 11. Offloading with pillows or device to keep heels elevated off bed 12. Monitor skin at least every shift 13. Inspect under medical devices twice a day WOUND TREATMENT RECOMMENDATIONS: CONSULT PODIATRY FOR RIGHT LATERAL LEG AND RIGHT GREAT TOE WOUNDS. STAGE 2 GUIDELINES TO RIGHT LOWER LEG: CLEANSE WITH NSS APPLY SUREPREP AROUND THE WOUND ALLOW TO DRY APPLY HYDROGEL AND COVER WITH OPTIFOAM. CLEANSE RIGHT GREAT TOE WITH NSS APPLY SUREPREP AND LEAVE OPEN TO AIR. STAGE 3&4 GUIDELINES TO COCCYX: CLEANSE WITH NSS APPLY SUREPREP AROUND THE WOUND ALLOW TO DRY APPLY THERAHONEY AND COVER WITH OPTIFOAM GENTLE. HEEL RAISER PRO BOOTS WHILE IN BED. CHAIR CUSION WHEN OUT OF BED.
--- NOTE | 2018-11-26 10:11 | NUR ---
Dr. Harris notified of wound care recommendations.
--- NOTE | 2018-11-26 10:37 | NUR ---
MORPHINE FOR BACK PAIN AND ZOFRAN TO PREVENT NAUSEA, INSULIN AT 15 UNITS PER HOUR
--- NOTE | 2018-11-26 10:45 | NUR ---
MORPHINE FOR BACK PAIN HAS BEEN EFFECTIVE
[2018-11-26] MEDS ORDERED: TOPROL XL50 M1 PO (11:41)
[2018-11-26] MEDS ORDERED: OXYCODONE HYDRO10 M2 PO (11:43)
[2018-11-26 12:34] LABS: BUN 19 mg/dl (7-24); CHLORIDE 112 mmol/L (98-107); CREATININE 1.02 mg/dL (0.70-1.30); POTASSIUM 3.7 mmol/L (3.5-5.1); SODIUM 141 mmol/L (136-145)
--- NOTE | 2018-11-26 15:25 | NUR ---
ANKLE/FOOT IN TO SEE PTS WOUNDS
--- NOTE | 2018-11-26 16:32 | NUR ---
INSULIN DRIP AND FLUIDS TURNED OFF AT PTS INSISTENCE HE FEELS LOW WITH A BS OF 126
[2018-11-26 17:01] LABS: BUN 18 mg/dl (7-24); CHLORIDE 112 mmol/L (98-107); CREATININE 0.88 mg/dL (0.70-1.30); POTASSIUM 3.9 mmol/L (3.5-5.1); SODIUM 141 mmol/L (136-145)
--- NOTE | 2018-11-26 20:16 | NUR ---
1930 RESTING IN BED WITH HOB ELEVATED. SIDE RAILS UP X'S 2. ALERT AND PLEASANT. TALKING WITH VISITOR. NO DISTRESS NOTED. NO C/O'S PAIN VOICED AT PRESENT TIME. [facility] MEDIPORT INTACT AND ACCESSED. TOOK DIET WELL FOR SUPPER.
[2018-11-26 20:37] LABS: BUN 16 mg/dl (7-24); CHLORIDE 110 mmol/L (98-107); CREATININE 0.67 mg/dL (0.70-1.30); POTASSIUM 4.6 mmol/L (3.5-5.1); SODIUM 139 mmol/L (136-145)
--- NOTE | 2018-11-26 22:10 | NUR ---
2114 OXY IR GIVEN PER REQUEST FOR GENERALIZED DISCOMFORT. WILL MONITOR. 2209 EARLIER PAIN MED EFFECTIVE. RESTING IN BED WITH EYES CLOSED.
--- NOTE | 2018-11-26 23:46 | NUR ---
BATH OFFERED TO PT MULTIPLE TIMES. STATES "IN A LITTLE BIT".
[2018-11-27] VITALS: BP 107/59
--- NOTE | 2018-11-27 01:41 | NUR ---
0130 COMPLETE BED BATH GIVEN AND LINENS CHANGED. UROSTOMY BAG CHANGED DUE TO LEAKING. REQUESTING SOMETHING ELSE FOR PAIN IN HIS BACK AND RIBS.
--- NOTE | 2018-11-27 01:48 | NUR ---
DR. PRINCE CALLED. ORDERS RECEIVED.
--- NOTE | 2018-11-27 03:28 | NUR ---
0200 PT OFFERED TOREDOL FOR PAIN. REFUSED. STATES " THAT NEVER WORKS".
[2018-11-27 04:00] VITALS: BP 102/52
[2018-11-27 04:40] LABS: BASO % 0.5 % (0.0-1.0); EOS # 0.1 10*3/uL (0.0-0.4); EOS % 2.8 % (1.0-4.0); HEMOGLOBIN 9.7 g/dl (14.0-18.0); LYMPH # 1.2 10*3/uL (1.3-4.4); LYMPH % 26.9 % (27.0-41.0); MEAN CORPUSCULAR HGB 28.4 pg (27.0-31.0); MEAN CORPUSCULAR HGB CONC 32.3 g/dl (33.0-37.0); MEAN PLATELET VOLUME 9.5 fl (9.6-12.3); MONO # 0.5 10*3/uL (0.1-1.0); NEUT # 2.5 10*3/uL (2.3-7.9); NEUT % 57.1 % (47.0-73.0); PLATELET COUNT AUTOMATED 212 10*3/uL (130-400); RED BLOOD COUNT 3.41 10*6/uL (4.50-5.90); RED CELL DISTRI WIDTH 13.9 % (0-14.5); WHITE BLOOD COUNT 4.4 10*3/uL (4.8-10.8)
[2018-11-27 05:00] LABS: BUN 12 mg/dl (7-24); CHLORIDE 109 mmol/L (98-107); CREATININE 0.65 mg/dL (0.70-1.30); POTASSIUM 4.4 mmol/L (3.5-5.1); SODIUM 137 mmol/L (136-145)
--- NOTE | 2018-11-27 06:06 | NUR ---
RESTING IN BED WITH EYES CLOSED. APPEARS TO BE SLEEPING. LAB CALLED WITH POSITIVE BLOOD CULTURES. DR. PRINCE NOTIFIED. NO DISTRESS NOTED. CONDITION GUARDED.
[2018-11-27 08:00] VITALS: BP 98/67
[2018-11-27 12:00] VITALS: BP 100/73
--- NOTE | 2018-11-27 14:29 | NUR ---
Investor Relations Specialist in to talk to patient. Patient states lives at HOME with AUNT. There are FEW steps in the home. Physician: PAUL [facility]acy: [facility] Home health services: [facility] Patient's level of ADLs: MAX ASSIST Patient has working utilities: YES DME: WHEELCHAIR, MOTORIZED WHEELCHAIR Follow-up physician's appointment after d/c: WILL BE MADE BY HOSPITALIST NURSE DIRECCTOR ON DISCHARGE Does patient want to access PORTAL?: NO Discharge plan PT LIVES AT HOME WITH HIS AUNT AND PLANS TO RETURN THERE ON DISCHARGE. STATES HE HAS [facility] SERVICES AND WILL CONTINUE WITH THEM. HAS A WHEELCHAIR AND MOTORIZED WHEELCHAIR AT HOME. WILL CONTINUE TO FOLLOW. STATES HE WILL NEED AN AMBULANCE TO GO HOME.. GAEL CARVAJAL
[2018-11-27 16:00] VITALS: BP 107/64
--- NOTE | 2018-11-27 16:09 | NUR ---
AUNT EVAN DOES NOT WANT PATIENT ON IV NARCOTIC. SHE SHOWED THIS RN HIS OXY IR FROM HOME THE SCRIPT WAS FROM 09/25 WITH 15-20 PILLS IN BOTTLE STILL. AUNT VALENTINA WANTED IT NOTED TO THIS FACT.
[2018-11-27 20:00] VITALS: BP 113/74
--- NOTE | 2018-11-27 22:52 | NUR ---
NOTIFIED OF PATIENT'S CONTINUED PAIN AND REQUESTING IV MORPHINE SHOT. PATIENT'S WINDOW GLAZIER HELPER MADE IT VERY CLEAR NOT TO GIVE PATIENT ANY IV NARCOTICS. NEW ORDER TO FOLLOW FOR 1X DOSE IV TORADOL.
--- NOTE | 2018-11-27 23:19 | NUR ---
IV TORADOL ADMINISTERED PER ONE TIME ORDER FOR C/O PAIN IN BACK AND ARMS RATED 10/10. WILL MONITOR EFFECTIVENESS. BED LEFT LOCKED IN LOW POSITION, BED ALARM INTACT, CALL LIGHT IN REACH.
[2018-11-28] VITALS: BP 127/76
--- NOTE | 2018-11-28 03:10 | NUR ---
PATIENT ASLEEP IN BED. RESPIRATIONS EASY. NO S/S OF DISTRESS NOTED. WILL MONITOR. BED LOCKED IN LOW POSITION, BED ALARM INTACT, CALL LIGHT IN REACH.
[2018-11-28 06:23] LABS: BASO % 0.3 % (0.0-1.0); EOS # 0.1 10*3/uL (0.0-0.4); EOS % 1.4 % (1.0-4.0); HEMATOCRIT 29.7 % (42.0-52.0); HEMOGLOBIN 9.5 g/dl (14.0-18.0); LYMPH % 28.4 % (27.0-41.0); MEAN CELL VOLUME 87.4 fl (80.0-94.0); MEAN CORPUSCULAR HGB 27.9 pg (27.0-31.0); MEAN PLATELET VOLUME 9.3 fl (9.6-12.3); MONO # 0.4 10*3/uL (0.1-1.0); MONO % 12.2 % (3.0-9.0); NEUT % 57.1 % (47.0-73.0); PLATELET COUNT AUTOMATED 176 10*3/uL (130-400); WHITE BLOOD COUNT 3.5 10*3/uL (4.8-10.8)
[2018-11-28 06:49] LABS: BUN 11 mg/dl (7-24); CHLORIDE 109 mmol/L (98-107); CREATININE 0.55 mg/dL (0.70-1.30); POTASSIUM 4.4 mmol/L (3.5-5.1); SODIUM 136 mmol/L (136-145)
[2018-11-28 08:00] VITALS: BP 118/74
--- NOTE | 2018-11-28 08:52 | NUR ---
CARE ANDREZ CALLED IN AND WOULD LIKE PATIENT TO START SEEING WOUND CARE HERE INSTEAD OF [facility].
--- NOTE | 2018-11-28 10:33 | NUR ---
PATIENT'S FAMILY IS REQUESTING THAT HE FOLLOWS UP IN THE WOUND CARE CENTER INSTEAD OF GOING TO [facility] FOLLOW UP APPOINTMENT IS 12/04/[address] ZUNIGA
[2018-11-28 12:00] VITALS: BP 113/65
--- NOTE | 2018-11-28 13:27 | NUR ---
RESUME OF HOME HEALTH FAXED TO [facility].
[2018-11-28 16:00] VITALS: BP 126/72
[2018-11-28 20:00] VITALS: BP 131/80
[2018-11-29] VITALS: BP 128/80
[2018-11-29 08:00] VITALS: BP 110/67
[2018-11-29] MEDS ORDERED: CEFUROXIME AXE250 MG PO (10:53)
--- NOTE | 2018-11-29 11:22 | NUR ---
PT STATES NO NEW NEEDS AT HOME AT THIS TIME.
[2018-11-29 12:00] VITALS: BP 122/80
--- NOTE | 2018-11-29 13:12 | NUR ---
HEEL PROTECTORS PLACED ON PATIENT PER ORDER.
--- NOTE | 2018-11-29 13:16 | NUR ---
Patient is discharged to home. Transportation scheduled for 2:30 PM with [place]. Guardian/home health care provider, freight forwarder, nursing all notified.
--- NOTE | 2018-11-29 14:03 | NUR ---
Patients scheduled ambulance transport to home was changed to 4:30 due to the ambulance having an increase in emergency calls. wardrobe consultant and caregiver notified.
[2018-11-29 16:00] VITALS: BP 123/79
--- NOTE | 2018-11-29 16:15 | NUR ---
PT DISCHARGED HOME AT THIS TIME VIA [facility]. DISCHARGE PHOTOS REFUSED OF WOUNDS. DRESSING INTACT TO RIGHT LEG. LEFT MEDIPORT UNACCESSED. VSS.
== END 2018-11-29 16:15 | disposition home health service (06) | DRG 637 ==
LOC: ED 23:05 → EDHOLD 11-26 00:51 → ICCU 11-26 00:51 → 4E 11-27 13:48
PROVIDERS: Family Medicine; Internal Medicine; Student in an Organized Health Care Education/Training Program; ADMIT Internal Medicine
DX: E11.10 Type 2 diabetes mellitus with ketoacidosis without coma (principal); E43 Unspecified severe protein-calorie malnutrition; L89.153 Pressure ulcer of sacral region, stage 3; N39.0 Urinary tract infection, site not specified; R31.9 Hematuria, unspecified; I95.9 Hypotension, unspecified; E11.39 Type 2 diabetes mellitus with other diabetic ophthalmic complication; H54.10 Blindness, one eye, low vision other eye, unspecified eyes; R00.0 Tachycardia, unspecified; E11.621 Type 2 diabetes mellitus with foot ulcer; L97.519 Non-pressure chronic ulcer of other part of right foot with unspecified severity; S90.121A Contusion of right lesser toe(s) without damage to nail, initial encounter; L89.152 Pressure ulcer of sacral region, stage 2; X58.XXXA Exposure to other specified factors, initial encounter; D64.9 Anemia, unspecified; G89.29 Other chronic pain; E11.42 Type 2 diabetes mellitus with diabetic polyneuropathy; G43.709 Chronic migraine without aura, not intractable, without status migrainosus; E55.9 Vitamin D deficiency, unspecified; B96.1 Klebsiella pneumoniae [K. pneumoniae] as the cause of diseases classified elsewhere; Z88.2 Allergy status to sulfonamides; Z88.1 Allergy status to other antibiotic agents; Z91.040 Latex allergy status; Z88.8 Allergy status to other drugs, medicaments and biological substances; Z88.5 Allergy status to narcotic agent; Z90.49 Acquired absence of other specified parts of digestive tract; Z83.3 Family history of diabetes mellitus; Z79.4 Long term (current) use of insulin; Z79.899 Other long term (current) drug therapy; Y93.89 Activity, other specified; Y92.89 Other specified places as the place of occurrence of the external cause; Y99.8 Other external cause status; Z68.25 Body mass index [BMI] 25.0-25.9, adult

== ENCOUNTER → 2019-01-07 | Outpatient (CLI) | payer MEDICAID ==
[~2019-01-07] MED LIST changes: +HUMALOG100 UNIT/2 SQ; +OXYCODONE HYDRO10 M2 PO
== END | disposition home or self-care (01) ==
LOC: WOUNDCARE 01:40
DX: E11.622 Type 2 diabetes mellitus with other skin ulcer (principal); L89.152 Pressure ulcer of sacral region, stage 2; E11.65 Type 2 diabetes mellitus with hyperglycemia; G82.20 Paraplegia, unspecified; E11.40 Type 2 diabetes mellitus with diabetic neuropathy, unspecified; E55.9 Vitamin D deficiency, unspecified; G43.809 Other migraine, not intractable, without status migrainosus; H54.3 Unqualified visual loss, both eyes; Z87.891 Personal history of nicotine dependence

== ENCOUNTER → 2019-01-29 | Outpatient (CLI) | payer MEDICAID | END | disposition home or self-care (01) | LOC: WOUNDCARE 00:11 | DX: E11.622 Type 2 diabetes mellitus with other skin ulcer (principal); L89.152 Pressure ulcer of sacral region, stage 2; L98.491 Non-pressure chronic ulcer of skin of other sites limited to breakdown of skin; G82.20 Paraplegia, unspecified; E11.65 Type 2 diabetes mellitus with hyperglycemia; H54.3 Unqualified visual loss, both eyes; E11.40 Type 2 diabetes mellitus with diabetic neuropathy, unspecified; E55.9 Vitamin D deficiency, unspecified; G43.909 Migraine, unspecified, not intractable, without status migrainosus; Z87.891 Personal history of nicotine dependence ==

== ENCOUNTER 2019-03-12 16:08 | Emergency (ER) | payer MEDICAID ==
[2019-03-12 16:41] LABS: BILIRUBIN NEGATIVE (NEGATIVE); BLOOD 1+ (NEGATIVE); CLARITY SL CLOUDY (CLEAR); COLOR YELLOW (YELLOW); GLUCOSE 3+ (NEGATIVE); KETONE NEGATIVE (NEGATIVE); LEUKO ESTERASE NEGATIVE (NEGATIVE); NITRITE POSITIVE (NEGATIVE); SPECIFIC GRAVITY <= 1.005 (1.005-1.030)
[2019-03-12 16:57] LABS: BACTERIA 2+; RBC 0-2 rbc/hpf (0-2)
[2019-03-12 16:58] LABS: YEAST 1+
[2019-03-12 17:04] LABS: BASO % 0.2 % (0.0-1.0); EOS # 0.1 10*3/uL (0.0-0.4); EOS % 1.9 % (1.0-4.0); HEMATOCRIT 34.1 % (42.0-52.0); HEMOGLOBIN 11.1 g/dl (14.0-18.0); LYMPH # 1.1 10*3/uL (1.3-4.4); LYMPH % 26.5 % (27.0-41.0); MEAN CELL VOLUME 86.1 fl (80.0-94.0); MEAN CORPUSCULAR HGB CONC 32.6 g/dl (33.0-37.0); MEAN PLATELET VOLUME 9.3 fl (9.6-12.3); MONO # 0.3 10*3/uL (0.1-1.0); MONO % 7.7 % (3.0-9.0); NEUT # 2.6 10*3/uL (2.3-7.9); NEUT % 63.5 % (47.0-73.0); PLATELET COUNT AUTOMATED 202 10*3/uL (130-400); RED BLOOD COUNT 3.96 10*6/uL (4.50-5.90); RED CELL DISTRI WIDTH 14.1 % (0-14.5); WHITE BLOOD COUNT 4.2 10*3/uL (4.8-10.8)
[2019-03-12 17:21] LABS: ALBUMIN 2.8 gm/dl (3.1-4.5); ALKALINE PHOSPHATASE 169 U/L (45-117); BUN 15 mg/dl (7-24); CHLORIDE 107 mmol/L (98-107); CREATININE 0.64 mg/dL (0.70-1.30); SGOT/AST 13 IU/L (3-35); SGPT/ALT 14 U/L (12-78); SODIUM 137 mmol/L (136-145); TOTAL PROTEIN 6.5 gm/dL (6.4-8.2)
[2019-03-12 17:33] LABS: ACT PARTIAL THROMBO TIME 61.2 SECONDS (20.0-32.1)
== END 2019-03-12 19:36 | disposition home or self-care (01) ==
LOC: ED 16:08
PROVIDERS: Emergency Medicine
DX: E10.65 Type 1 diabetes mellitus with hyperglycemia (principal); N50.82 Scrotal pain; G82.20 Paraplegia, unspecified; G89.29 Other chronic pain; F17.200 Nicotine dependence, unspecified, uncomplicated; Z88.6 Allergy status to analgesic agent; Z88.2 Allergy status to sulfonamides; Z91.048 Other nonmedicinal substance allergy status; Z88.8 Allergy status to other drugs, medicaments and biological substances; Z91.040 Latex allergy status; Z88.1 Allergy status to other antibiotic agents; Z79.2 Long term (current) use of antibiotics; Z79.899 Other long term (current) drug therapy; Z79.4 Long term (current) use of insulin; Z93.6 Other artificial openings of urinary tract status; Z90.49 Acquired absence of other specified parts of digestive tract

== ENCOUNTER 2019-06-15 09:53 | Emergency (ER) | payer MEDICAID ==
[~2019-06-15] VITALS: Ht 172.7 cm; Wt 68.0 kg
[2019-06-15 10:41] LABS: BASO % 0.1 % (0.0-1.0); EOS # 0.2 10*3/uL (0.0-0.4); HEMOGLOBIN 9.8 g/dl (14.0-18.0); LYMPH # 1.2 10*3/uL (1.3-4.4); LYMPH % 14.6 % (27.0-41.0); MEAN CELL VOLUME 86.2 fl (80.0-94.0); MEAN CORPUSCULAR HGB 28.2 pg (27.0-31.0); MEAN CORPUSCULAR HGB CONC 32.7 g/dl (33.0-37.0); MEAN PLATELET VOLUME 9.9 fl (9.6-12.3); MONO # 0.7 10*3/uL (0.1-1.0); MONO % 8.7 % (3.0-9.0); NEUT # 6.3 10*3/uL (2.3-7.9); NEUT % 74.1 % (47.0-73.0); PLATELET COUNT AUTOMATED 266 10*3/uL (130-400); RED BLOOD COUNT 3.48 10*6/uL (4.50-5.90); RED CELL DISTRI WIDTH 13.5 % (0-14.5); WHITE BLOOD COUNT 8.5 10*3/uL (4.8-10.8)
[2019-06-15 11:07] LABS: ALBUMIN 2.3 gm/dl (3.1-4.5); ALKALINE PHOSPHATASE 180 U/L (45-117); BUN 14 mg/dl (7-24); CHLORIDE 100 mmol/L (98-107); POTASSIUM 3.7 mmol/L (3.5-5.1); SGOT/AST 10 IU/L (3-35); SGPT/ALT 11 U/L (12-78); SODIUM 132 mmol/L (136-145); TOTAL PROTEIN 6.6 gm/dL (6.4-8.2)
[2019-06-15 13:00] LABS: BILIRUBIN NEGATIVE (NEGATIVE); BLOOD TRACE-INTACT (NEGATIVE); CLARITY CLOUDY (CLEAR); COLOR YELLOW (YELLOW); GLUCOSE 1+ (NEGATIVE); KETONE NEGATIVE (NEGATIVE); LEUKO ESTERASE TRACE (NEGATIVE); NITRITE POSITIVE (NEGATIVE); PH 5.5 (5.0-9.0); SPECIFIC GRAVITY <= 1.005 (1.005-1.030); UROBILINOGEN 0.2 E.U./dl (0.2-1.0)
[2019-06-15 13:07] LABS: BACTERIA 4+; YEAST 3+
== END 2019-06-15 14:38 | disposition home or self-care (01) ==
LOC: ED 09:53
PROVIDERS: Family Medicine
DX: N39.0 Urinary tract infection, site not specified (principal); E11.65 Type 2 diabetes mellitus with hyperglycemia; E11.42 Type 2 diabetes mellitus with diabetic polyneuropathy; G43.909 Migraine, unspecified, not intractable, without status migrainosus; Z79.899 Other long term (current) drug therapy; Z79.4 Long term (current) use of insulin; Z88.2 Allergy status to sulfonamides; Z88.6 Allergy status to analgesic agent; Z91.040 Latex allergy status; Z88.1 Allergy status to other antibiotic agents; Z88.8 Allergy status to other drugs, medicaments and biological substances

== ENCOUNTER → 2020-04-03 | Outpatient (CLI) | payer MEDICAID | END | disposition home or self-care (01) | LOC: US 12:49 → CT 14:00 | PROVIDERS: ATTEND Urology | DX: N50.3 Cyst of epididymis (principal); N20.0 Calculus of kidney ==

== ENCOUNTER 2020-05-04 18:45 | Emergency (ER) | payer MEDICAID ==
[~2020-05-04] VITALS: Ht 124.4 cm; Wt 61.2 kg
[2020-05-04 19:28] LABS: BASO % 0.1 % (0.0-1.0); EOS # 0.1 10*3/uL (0.0-0.4); EOS % 1.9 % (1.0-4.0); HEMATOCRIT 32.2 % (42.0-52.0); LYMPH # 1.1 10*3/uL (1.3-4.4); LYMPH % 14.5 % (27.0-41.0); MEAN CELL VOLUME 85.4 fl (80.0-94.0); MEAN CORPUSCULAR HGB 27.9 pg (27.0-31.0); MEAN CORPUSCULAR HGB CONC 32.6 g/dl (33.0-37.0); MEAN PLATELET VOLUME 10.2 fl (9.6-12.3); MONO # 0.6 10*3/uL (0.1-1.0); MONO % 8.2 % (3.0-9.0); NEUT # 5.4 10*3/uL (2.3-7.9); PLATELET COUNT AUTOMATED 213 10*3/uL (130-400); RED BLOOD COUNT 3.77 10*6/uL (4.50-5.90); RED CELL DISTRI WIDTH 13.6 % (0-14.5); WHITE BLOOD COUNT 7.2 10*3/uL (4.8-10.8)
[2020-05-04 19:51] LABS: ALBUMIN 2.7 gm/dl (3.1-4.5); ALKALINE PHOSPHATASE 181 U/L (45-117); BUN 25 mg/dl (7-24); CHLORIDE 109 mmol/L (98-107); CREATININE 0.64 mg/dL (0.70-1.30); POTASSIUM 3.9 mmol/L (3.5-5.1); SGOT/AST 10 IU/L (3-35); SGPT/ALT 12 U/L (12-78); SODIUM 135 mmol/L (136-145); TOTAL PROTEIN 7.2 gm/dL (6.4-8.2)
[2020-05-04] MEDS ORDERED: AUGMENTIN 875-875 MG PO ×2 (23:06)
[2020-05-05] MEDS ORDERED: LASIX40 MG PO (19:42)
[2020-05-05] MEDS ORDERED: PEPCID40 MG PO (19:42)
[2020-05-05] MEDS ORDERED: POTASSIUM CHLO10 MEQ PO (19:43)
[2020-05-05] MEDS ORDERED: NYSTOP60 GM T (19:43)
[2020-05-06] MEDS ORDERED: KEFLEX500 M1 PO (12:35)
== END 2020-05-04 23:44 | disposition home or self-care (01) ==
LOC: ED 18:45
PROVIDERS: Nurse Practitioner Family
DX: K11.20 Sialoadenitis, unspecified (principal); I88.9 Nonspecific lymphadenitis, unspecified; Z88.2 Allergy status to sulfonamides; Z79.899 Other long term (current) drug therapy; Z91.040 Latex allergy status

== ENCOUNTER 2020-05-05 11:35 | Inpatient (IN) | payer MEDICAID ==
[~2020-05-05] VITALS: Ht 149.8 cm; Wt 61.9 kg
[~2020-05-05 11:35] MED LIST changes: +AUGMENTIN 875-875 MG PO
[2020-05-05 11:53] VITALS: BP 146/81
[2020-05-05 12:43] LABS: BASO % 0.2 % (0.0-1.0); EOS # 0.1 10*3/uL (0.0-0.4); EOS % 0.6 % (1.0-4.0); HEMATOCRIT 31.5 % (42.0-52.0); LYMPH # 0.8 10*3/uL (1.3-4.4); MEAN CELL VOLUME 87.7 fl (80.0-94.0); MEAN CORPUSCULAR HGB 28.1 pg (27.0-31.0); MEAN CORPUSCULAR HGB CONC 32.1 g/dl (33.0-37.0); MEAN PLATELET VOLUME 9.7 fl (9.6-12.3); MONO # 0.7 10*3/uL (0.1-1.0); MONO % 8.4 % (3.0-9.0); NEUT # 6.8 10*3/uL (2.3-7.9); NEUT % 81.1 % (47.0-73.0); PLATELET COUNT AUTOMATED 198 10*3/uL (130-400); RED BLOOD COUNT 3.59 10*6/uL (4.50-5.90); RED CELL DISTRI WIDTH 13.7 % (0-14.5); WHITE BLOOD COUNT 8.4 10*3/uL (4.8-10.8)
[2020-05-05 12:58] LABS: ALBUMIN 2.6 gm/dl (3.1-4.5); ALKALINE PHOSPHATASE 174 U/L (45-117); BUN 19 mg/dl (7-24); CHLORIDE 108 mmol/L (98-107); POTASSIUM 4.4 mmol/L (3.5-5.1); SGOT/AST 10 IU/L (3-35); SGPT/ALT 12 U/L (12-78); SODIUM 136 mmol/L (136-145); TOTAL PROTEIN 6.9 gm/dL (6.4-8.2)
[2020-05-05 13:03] VITALS: BP 121/65
--- NOTE | 2020-05-05 13:27 | NUR ---
CHANGED PT DIRTY LINENS. WOUND NOTED TO PT COCCYX AREA, REDDENED.
--- NOTE | 2020-05-05 13:29 | NUR ---
PATIENT REQUESTING PAIN MEDS, STATES THAT DILAUDID THAT WAS GIVEN WAS EFFECTIVE AND TOOK THE "EDGE OFF OF IT", GLORY SILVESTRE MADE AWARE.
--- NOTE | 2020-05-05 14:28 | NUR ---
RADIOLOGY TO TRANSPORT PT TO CT.
--- NOTE | 2020-05-05 14:50 | NUR ---
PATIENT RETURNS TO ROOM FROM CT. NO VOICED COMPLAINTS AT THIS TIME. VSS. WILL CONTINUE TO MONITOR.
[2020-05-05 16:56] VITALS: BP 122/66
--- NOTE | 2020-05-05 16:56 | NUR ---
PATIENT RESTING COMFORTABLY IN BED. CALL LIGHT WITHIN REACH, NO VOICED COMPLAINTS AT THIS TIME. VSS
--- NOTE | 2020-05-05 17:14 | NUR ---
PATIENT PLACED CALL LIGHT ON AND IS REQUESTING TO SPEAK TO PROIVIDER, PROVIDER NOTIFIED.
--- NOTE | 2020-05-05 18:30 | NUR ---
JOSEPH ARRIVED TO DEPARTMENT WHILE TRANSPORTING PT TO FLOOR, MEDICATION HANDED OFF TO LATOYA CERRATO.
[2020-05-05 18:45] VITALS: BP 120/72
--- NOTE | 2020-05-05 18:45 | NUR ---
A 35YO MALE, admitted to , under the services of ELIZABETH Mackenzie DO with a diagnosis of HYPERGLYCEMIA, TACHYCARDIA, POSSIBLE ALLERGIC REACTION. Chief complaint is AFTER TAKING AUGMENTIN DIFFICULTY SWALLOWING AND RIGHT JAW AREA PAIN AND SWELLING, SALIVARY STONES, PER PATIENT. Patient arrived via stretcher from ER. Monitor applied. Initial assessment completed. Vital signs taken and recorded. ELIZABETH MACKENZIE DO notified of admission to the unit. Orders received. See assessment for past medical history, medications and allergies. Patient and/or family oriented to unit. [facility]U visitation policy reviewed. Clothing/patient valuable form completed. CARIE GREGORY
[2020-05-05] MEDS ORDERED: LASIX40 MG PO (19:42)
[2020-05-05] MEDS ORDERED: PEPCID40 MG PO (19:42)
[2020-05-05] MEDS ORDERED: POTASSIUM CHLO10 MEQ PO (19:43)
[2020-05-05] MEDS ORDERED: NYSTOP60 GM T (19:43)
--- NOTE | 2020-05-05 19:57 | NUR ---
MEDICATED WITH PRN MORPHINE PER PATIENT REQUEST FOR CO NECK/THROAT PAIN RATED A 10/10. WILL ASSESS EFFECTIVENESS.
[2020-05-05 20:00] VITALS: BP 121/70
--- NOTE | 2020-05-05 20:00 | NUR ---
UROSTOMY WAS LEAKING. CLEANED PATIENT UP AND CHANGED UROSTOMY AT THIS TIME.
--- NOTE | 2020-05-05 20:57 | NUR ---
MORPHINE EFFECTIVE PER PATIENT.
[2020-05-06] VITALS: BP 137/78
--- NOTE | 2020-05-06 00:05 | NUR ---
24 HR chart check completed.
--- NOTE | 2020-05-06 00:17 | NUR ---
IV MORPHINE ADMINISTERED PER REQUEST FOR R SIDED "LYMPH NODE PAIN" RATED 10/10. ICE WATER ALSO PROVIDED PER REQUEST. WILL MONITOR.
--- NOTE | 2020-05-06 01:00 | NUR ---
PATIENT CALLED ME INTO HIS ROOM AT THIS TIME AND STATES HE IS HAVING TROUBLE BREATHING AND THAT HIS TONGUE IS SWELLING UP. VSS. POX 98% AT THIS TIME. PATIENT REQUESTING SOME 02. PLACED PATIENT ON 2L NC AT THIS TIME FOR COMFORT. CHECKED PATIENTS TONGUE FOR SWELLING AND DIDN'T NOTICE ANY CHANGE. NOTIFED AND STATES SHE WILL BE UP.
--- NOTE | 2020-05-06 01:05 | NUR ---
WAS IN TO SEE PATIENT AND IS GOING TO PUT ORDERS IN.
--- NOTE | 2020-05-06 01:17 | NUR ---
MORPHINE NOT VERY EFFECTIVE PER PATIENT.
--- NOTE | 2020-05-06 01:39 | NUR ---
PATIENT REQUESTING MORE PAIN MEDS. PER DR.BAZAAN MCCURDY TO START OXYCODONE NOW THAT PATIENT TAKES AT HOME.
--- NOTE | 2020-05-06 01:40 | NUR ---
MEDICATED WITH PRN OXYCODONE AT THIS TIME PER REQUEST FOR PATIENT CO NECK/THROAT PAIN RATED A 10/10. WILL ASSESS EFFECTIVENESS.
--- NOTE | 2020-05-06 01:44 | NUR ---
PATIENTS VSS REMAINING STABLE. POX 99% ON 2L NC. WILL CONTINUE TO MONITOR. CALL LIGHT IN REACH.
[2020-05-06 06:37] LABS: BASO % 0.1 % (0.0-1.0); HEMATOCRIT 30.6 % (42.0-52.0); LYMPH # 0.7 10*3/uL (1.3-4.4); LYMPH % 7.9 % (27.0-41.0); MEAN CELL VOLUME 87.7 fl (80.0-94.0); MEAN CORPUSCULAR HGB 28.1 pg (27.0-31.0); MEAN PLATELET VOLUME 10.1 fl (9.6-12.3); MONO # 0.3 10*3/uL (0.1-1.0); MONO % 3.3 % (3.0-9.0); NEUT # 7.9 10*3/uL (2.3-7.9); NEUT % 87.9 % (47.0-73.0); PLATELET COUNT AUTOMATED 199 10*3/uL (130-400); RED BLOOD COUNT 3.49 10*6/uL (4.50-5.90); RED CELL DISTRI WIDTH 14.1 % (0-14.5)
--- NOTE | 2020-05-06 06:37 | NUR ---
MEDICATED WITH PRN MORPHINE PER PATIENT REQUEST FOR CO NECK/THROAT PAIN RATED A 10/10. ONCOMING NURSE TO ASSESS EFFECTIVENESS. CALL LIGHT IN REACH.
[2020-05-06 06:51] LABS: ALBUMIN 2.5 gm/dl (3.1-4.5); ALKALINE PHOSPHATASE 172 U/L (45-117); BUN 22 mg/dl (7-24); CHLORIDE 107 mmol/L (98-107); CREATININE 1.17 mg/dL (0.70-1.30); POTASSIUM 4.7 mmol/L (3.5-5.1); SGOT/AST 8 IU/L (3-35); SGPT/ALT 13 U/L (12-78); SODIUM 135 mmol/L (136-145); TOTAL PROTEIN 7.1 gm/dL (6.4-8.2)
[2020-05-06 08:00] VITALS: BP 120/80; BP 128/80
[2020-05-06 12:00] VITALS: BP 142/79
--- NOTE | 2020-05-06 12:20 | NUR ---
Impression Printer in to talk to patient. Patient states lives at HOME with AUNT. There are NO steps in the home. Physician: PAUL Pharmacy: [facility] Home health services: [facility] Patient's level of ADLs: MAX ASSIST Patient has working utilities: YES DME: PT STATES HE HAS EVERYTHING HE NEEDS AT HOME Follow-up physician's appointment after d/c: WILL BE MADE BY HOSPITALIST NURSE DIRECTOR ON DISCHARGE Does patient want to access PORTAL?: NO Discharge plan PT LIVES AT HOME WITH HIS AUNT. STATES HE HAS EVERYTHING HE NEEDS AT HOME BUT WILL NOT SAY WHAT HE HAS. STATES ON DISCHARGE HE WILL RETURN HOME WITH AUNT. STATES HE HAS [facility]. WILL REQUIRE AMBULANCE TO TAKE HIM HOME. WILL CONTINUE TO FOLLOW.. GAEL CARVAJAL
[2020-05-06] MEDS ORDERED: KEFLEX500 M1 PO ×2 (12:35)
--- NOTE | 2020-05-06 13:39 | NUR ---
ONEIL REACHED OUT TO PATIENTS DPOA-HC/AUNT EVAN MAI. SHE STATED THAT THE WHOLE FAMILY IS COVID POSITIVE SO THE THIS PATIENT IS LIKELY POSTIVE. EVAN STATED THAT HERSELF AND FAMILY MEMBERS HAVE TESTED POSITIVE. EVAN STATED THAT IF THIS PATIENT IS NEGATIVE SHE WOULD LIKE TO TRY AND GET HIM PLACED WHILE THEY FINISH THEIR QUARENTINE. MOSS GATHERER EXPLAINED WE COULD TRY AND PLACE HIM BUT CANNOT BE CERTAIN IT WOULD BE APPROVED. EVAN STATED THAT SHE WOULD JUST HAVE TO USE THE PPE SHE HAS AT HOME TO CARE FOR HIM IF UNABLE TO PLACE HIM. SHE STATED IF HE IS POSITIVE, HE WILL RETURN HOME. EVAN STATED THAT SHE DID INFORM THE RN IN THE ER DEPT OF THE FAMILY BEING POSITIVE. SHE ASKED THAT IF HIS RESULTS ARE POSITIVE THAT WE REFRAME FROM TELLING HIM IT MIGHT CAUSE HIM TO THINK "HE IS GOING TO ". MOSS GATHERER SPOKE TO RN HOSPITALIST COORDINATOR JARROD, MOSS GATHERER ATTEMPTED TO SPEAK WITH RN, BUT WAS UNABLE TO REACH HER.
--- NOTE | 2020-05-06 14:30 | NUR ---
HALF SOLE FITTER LEFT MESSAGE FOR PATIENT [place] WAIVER DIE ENGRAVING SUPERVISOR TASHA ULRICH AT [phone].
--- NOTE | 2020-05-06 14:31 | NUR ---
PT TRANSFERRED PER NURSING TIRE SETTER'S ORDER TO 419. REPORT GIVEN TO JOHN CHRISTIAN RN.
[2020-05-06 16:00] VITALS: BP 136/82
--- NOTE | 2020-05-06 16:38 | NUR ---
PHYSICAL THERAPY Nursing screen received and chart reviewed. Patient presents with admission due to allergic reaction to medication. Patient is blind and paraplegic, lives at home with aunt/family who cares for him. Covid-19 results pending. If decline in functional status below baseline presents, please consider PT evaluation. Thank you. Nayeli Bourne,PT,DPT
--- NOTE | 2020-05-06 16:40 | NUR ---
Nursing screen received and chart reviewed. Patient was admitted with hyperglycemia and possible allergic reaction to medication. Patient lives with his aunt who cares for him. Patient is blind, paraplegic and w/c dependent. Covid testing pending. At this time no OT indicated. Thank you. Maranda Cannon OTR/l
--- NOTE | 2020-05-06 18:29 | NUR ---
PATIENT C/O THROAT AND NECK PAIN RATES PAIN 6/10 MEDICATED WITH OXYCODONE ORDERED BID PRN.
[2020-05-06 20:00] VITALS: BP 140/78
--- NOTE | 2020-05-06 20:28 | NUR ---
PATIENT MEDICATED WITH MORPHINE AND RESTORIL FOR INSOMNIA AND THROAT PAIN 03/16. WILL MONITOR
--- NOTE | 2020-05-06 21:12 | NUR ---
PATIENT REFUSED COVERAGE FOR BGM OF 294, STATES HE JUST WANTS LONG ACTING, STATES HE WILL DROP IN MORNING WITH COVERAGE
--- NOTE | 2020-05-06 21:28 | NUR ---
MORPHINE EFFECTIVE, RESTORIL NOT EFFECTIVE YET
--- NOTE | 2020-05-06 23:17 | NUR ---
PATIENT MEDICATED WITH OXYCODONE FOR C/O THROAT PAIN 02/13 WILL MONITOR
[2020-05-06 23:40] VITALS: BP 140/91
--- NOTE | 2020-05-07 06:10 | NUR ---
PATIENT MEDICATED WITH IV MORPHINE FOR C/O 9/10 NECK PAIN. WILL MONITOR
--- NOTE | 2020-05-07 06:24 | NUR ---
MADE AWARE OF FINGERSTICK BGM OF 474. STATED TO ONLY GIVE WHAT SSI ORDER.
--- NOTE | 2020-05-07 07:37 | NUR ---
PATIENTS COVID RESULTS ARE BACK, NEGATIVE. CUSTOMS ENTRY WRITER FAXED REFERRAL TO [facility] TO REVIEW FOR RESPITE CARE STAY.
[2020-05-07 08:00] VITALS: BP 147/85
--- NOTE | 2020-05-07 08:23 | NUR ---
WENT IN TO SEE PATIENT, NOTICED HE HAD A BOTTLE OF SPIT FROM CHEWING TABACCO, ADVICED THAT PER HOSPITAL POLICY, NO TABACCO PRODUCTS ALLOWED, UPON REQUEST HE GAVE ME TWO CANS OF SNUFF, WHICH ARE NOW LOCKED IN [facility], HE BEGAN TO CRY AFTER I LEFT ROOM.
--- NOTE | 2020-05-07 10:03 | NUR ---
PATIENT MEDICATED WITH ONE TIME DOSE OF DILAUDID FOR CONTINUED NECK PAIN.
--- NOTE | 2020-05-07 10:45 | NUR ---
DISTRICT FIRE MANAGEMENT OFFICER REACHED OUT TO PATIENTS AUNT EVAN MAI AND PROVIDED AN UPDATED. DISTRICT FIRE MANAGEMENT OFFICER EXPLAINED PATIENTS COVID RESULTS. DISTRICT FIRE MANAGEMENT OFFICER EXPLAINED ATTEMPTING RESPITE PLACEMENT AT [facility]. EVAN WAS AGREEABLE.
--- NOTE | 2020-05-07 11:00 | NUR ---
DILAUDID EFFECTIVE EVIDENCED BY PATIENT RESTING QUIETLY WITH EYES CLOSED, NO FACIAKL GRIMACING NOTED.
--- NOTE | 2020-05-07 11:10 | NUR ---
PHYSICAL THERAPY Attempted to see pt for evaluation currently recieving nursing care/bath will follow later this AM Margi Maldonado PT
--- NOTE | 2020-05-07 11:55 | NUR ---
PHYSICAL THERAPY Physical Therapy evaluation completed on 4th floor with full evaluation to follow. Recommend physical therapy per plan of care and nursing facility upon discharge with follow up therapy as appropriate. Per CM pt for respite care at nursing facility ed on need of own personal specialty equipment due to hx of paraplegia Thank you for this referral. Margi Maldonado PT
--- NOTE | 2020-05-07 11:55 | NUR ---
[facility] IS ABLE TO ACCEPT THIS PATIENT. HENS IS COMPLETED. AWAITING PT/OT EVALS TO COMPLETE LEVEL OF CARE. WILL NEED TO HAVE LEVEL OF CARE COMPLETED AND SUBMITTED TO [facility] FOR APPROVAL BEFORE ADMITTING TO [facility].
--- NOTE | 2020-05-07 11:55 | NUR ---
Occupational Therapy evaluation completed on four with full evaluation to follow. Recommend occupational therapy per plan of care and per CM patient will be discharging to a nursing facility for respite care upon discharge. Spoke with CM in regards to needing patient's AE/DME from home for OOB activity. Thank you for this referral. Yamel Tucker, OTR/L
[2020-05-07 12:00] VITALS: BP 158/62
--- NOTE | 2020-05-07 12:35 | NUR ---
CALL PLACED TO HOSPITALIST LINE REPORTED BS OF 451, THEN [address] IN ADDITION [address]ED [address] BAHENA THAT I GAVE 14 UNITS ORDERED PER SS, WELL ORDING GLUCOSE REFLEX, I WAS ADVISED TO RECHECK BLOOD SUGAR IN 40 MINUTE.
--- NOTE | 2020-05-07 14:00 | NUR ---
CALL PLACED TO DR. BAHENA ADVISED OF BS 434 AND REFLEX OF 419, NO NEW ORDERS AT THIS TIME.
--- NOTE | 2020-05-07 14:24 | NUR ---
AWAITING PT/OT EVALS TO FAX LEVEL OF CARE TO [facility] FOR REVIEW.
--- NOTE | 2020-05-07 14:40 | NUR ---
PATIENT C/O NECK DISCOMFORT ASKED FOR DILAUDID I ADVISED NONE IS ORDERED ADVISED HE HAS MORPHINE AVAILABLE
--- NOTE | 2020-05-07 15:26 | NUR ---
COMMUNITY MENTAL HEALTH WORKER FAXED LEVEL OF CARE FOR REVIEW.
--- NOTE | 2020-05-07 15:36 | NUR ---
MORPHINE EFFECTIVE EVIDENCED PATIENT RESTING QUIETLY WITH EYES CLOSED, RESPIRATIONS EASY AND NON-LABORED, NO FACIAL GRIMACING.
[2020-05-07 16:00] VITALS: BP 152/82
[2020-05-07 20:00] VITALS: BP 178/98
--- NOTE | 2020-05-07 20:00 | NUR ---
Neurological: awake,alert,oriented Respiratory: easy, regular,no distress Breath sounds: diminished Cough: none Cardiovascular: irregular Gastrointestinal: soft Genito/Urinary: indwelling catheter Musculoskeketal: paralyzed RENZO ROLLINS
--- NOTE | 2020-05-07 21:43 | NUR ---
C/O RIGHT NECK PAIN. MEDICATED PER PRN ORDER.
[2020-05-08] VITALS: BP 169/98
--- NOTE | 2020-05-08 | NUR ---
NOTIFIED OF INCREASED B/P AND PATIENT REQUESTING DILAUDID. STATED HE WILL REVIEW MEDS AND CHART THEN CALL BACK.
--- NOTE | 2020-05-08 00:23 | NUR ---
DR. MELISSA DAMON RETURNED CALL RE PT'S BP. NO ADDITIONAL ORDERS RCVD. CONTINUE W/CURRENT PAIN REGIMINE, RECHECK BP AFTER NEXT DOSE OF MORPHINE GIVEN.
--- NOTE | 2020-05-08 01:10 | NUR ---
C/O NECK PAIN. ADVISED HE HAS OXY AND HE REFUSED. STATED IT ISN'T WORKING. ADVISED HE CAN HAVE MORPHINE IN 40 MINUTES.
--- NOTE | 2020-05-08 02:00 | NUR ---
C/O RIGHT NECK PAIN. MEDICATED PER PRN ORDER.
--- NOTE | 2020-05-08 06:08 | NUR ---
C/O RT. NECK PAIN. REPOSITIONED WITHOUT EFFECT. ADMINISTERED PRN MORPHINE PER ORDER.
[2020-05-08 06:32] LABS: CREATININE 2.47 mg/dL (0.70-1.30)
[2020-05-08 08:00] VITALS: BP 170/98
--- NOTE | 2020-05-08 09:25 | NUR ---
OT NOTE Upon arrival pt was laying supine in bed agreeable to 20 minute OT session. Identified by name and date of with no complaints. At rest pts heart rate was 92bpm. Transfer supine to EOB maxA x2. Sitting balance P- requiring maxA to correct due to retrograde posture. Pt able to tolerate approx 50 seconds of sitting EOB before lying down due to dizziness. Transfer EOB to supine maxA x2. After approx 1 minute pt had no additional complaints of dizziness. While at EOB pts heart reate read 98bpm. Second transfer supine to EOB modA x2, pt educated on "log roll" with good carry over. Pt able to tolerate approx 1 minute sitting EOB before laying down due to fatigue. Transfer EOB to supine maxA x2. Pt left in bed with call light in reach and alarm active. Continue with POC when able. JOHN Crenshaw/ALICIA Back/Hans
--- NOTE | 2020-05-08 09:37 | NUR ---
LEVEL OF CARE IS BACK, PATIENT CAN BE DISCHARGED TO [facility] TODAY. CLINICAL EXERCISE SPECIALIST NOTIFIED RN HOSPITALIST COORDINATOR JARROD AND DISTRIBUTION TECHNICIAN.
--- NOTE | 2020-05-08 09:54 | NUR ---
SMELLER FAXED UPDATES TO [facility].
--- NOTE | 2020-05-08 10:05 | NUR ---
MORPHINE GIVEN PER PATIENT REQUEST FOR COMPLAINTS OF PAIN RATED 8/10. WILL ASSESS EFFECTIVENESS.
--- NOTE | 2020-05-08 10:35 | NUR ---
PHYSICAL THERAPY Patient seen this am 1;1 for therapy visit and was supine in bed upon therapist arrival. Patient identified by name / and was joined by OT life enrichment assistant for observation this session. Patient was pleasant this morning, voicing no new c/o's and recording resting HR 92 bpm, prior to transfering supine to sit EOB with MAX A x 2. Patient tolerated approx 50 seconds static EOB sit, MIN A to prevent retrograde posture, prior to c/o of increased dizziness. Patient returned to supine in bed and following brief rest break was able to complete second supine to sit EOB transfer, including rolling to R side with L UE support, improving transfer to MOD A x 2. Patient tolerated approx 1 minute static EOB sit, with c/o again of increased dizziness. Patient returned to supine in bed and remained with call light, tray table, cell phone, bed side rails raised and bed alarm for safety. Will continue per POC as tolerated, total treatment time 14 minutes. Jaret Alcantar, TAX PROFESSIONAL
--- NOTE | 2020-05-08 11:00 | NUR ---
MORPHINE NOT EFFECTIVE PER PATIENT. WILL NOTIFY DOCTOR.
[2020-05-08 12:00] VITALS: BP 174/94
--- NOTE | 2020-05-08 13:31 | NUR ---
NOTIFIED DR BAHENA THAT PATIENT'S BLOOD PRESSURE IS ELEVATED. HE STATED HE WOULD PUT SOMETHING IN FOR IT.
--- NOTE | 2020-05-08 13:47 | NUR ---
LABETOLOL GIVEN PER DR ORDERS D/T HIGH BP. WILL ASSESS EFFECTIVENESS.
--- NOTE | 2020-05-08 14:42 | NUR ---
PHYSICAL THERAPY CO-SIGN I approve of the Physical Therapy notes written above. Margi Maldonado PT
[2020-05-08 14:57] VITALS: BP 136/78
--- NOTE | 2020-05-08 14:58 | NUR ---
LABETOLOL EFFECTIVE. BP 136/78.
[2020-05-08 15:57] LABS: CREATININE 2.53 mg/dL (0.70-1.30)
[2020-05-08 16:00] VITALS: BP 151/85
--- NOTE | 2020-05-08 16:50 | NUR ---
DR DAVIS IN TO SEE PATIENT. HE STATED TO PUT ORDERS IN FOR 0.5MG DILAUDID IV NOW, ONE TIME. ORDERS PUT IN.
[2020-05-08 20:00] VITALS: BP 159/97
--- NOTE | 2020-05-08 20:00 | NUR ---
Neurological: awake,alert,oriented Respiratory: diminished bilaterally Breath sounds: clear Cough: none Cardiovascular: no problem Gastrointestinal: no problem Genito/Urinary: urostomy Musculoskeketal: paralyzed C/O GENERALIZED PAIN. REPOSITIONED WITHOUT EFFECT. MEDICATED PER ORDER. RENZO ROLLINS
[2020-05-09] VITALS: BP 132/81
--- NOTE | 2020-05-09 | NUR ---
RESTING QUIETLY IN BED WITH EYES CLOSED. RESPONDS TO VERBAL STIMULI. NO C/O VOICED. CALL IN REACH.
[2020-05-09 05:45] LABS: URINE CREATININE RANDOM 17.5 mg/dL
[2020-05-09 06:00] LABS: BASO % 0.2 % (0.0-1.0); HEMATOCRIT 30.9 % (42.0-52.0); LYMPH # 0.7 10*3/uL (1.3-4.4); LYMPH % 10.7 % (27.0-41.0); MEAN CELL VOLUME 86.6 fl (80.0-94.0); MEAN CORPUSCULAR HGB 27.5 pg (27.0-31.0); MEAN CORPUSCULAR HGB CONC 31.7 g/dl (33.0-37.0); MEAN PLATELET VOLUME 10.1 fl (9.6-12.3); MONO # 0.4 10*3/uL (0.1-1.0); MONO % 7.2 % (3.0-9.0); NEUT # 4.9 10*3/uL (2.3-7.9); NEUT % 79.8 % (47.0-73.0); PLATELET COUNT AUTOMATED 210 10*3/uL (130-400); RED BLOOD COUNT 3.57 10*6/uL (4.50-5.90); RED CELL DISTRI WIDTH 13.3 % (0-14.5); WHITE BLOOD COUNT 6.1 10*3/uL (4.8-10.8)
[2020-05-09 06:05] LABS: CREATININE 2.43 mg/dL (0.70-1.30); POTASSIUM 5.1 mmol/L (3.5-5.1)
--- NOTE | 2020-05-09 10:10 | NUR ---
RESIDENT ORDERRED ONE TIME DOSE DILAUDID FOR PATIENT AND ADDED OXY HCL (SEE EMAR) SCHEDULED 1000 AND 2200. GAVE BOTH TO PATIENT PERSCRIBED. HE REPORTS FEELING RELIEF.
[2020-05-09 12:00] VITALS: BP 145/84
[2020-05-09 16:00] VITALS: BP 139/77
[2020-05-09 20:00] VITALS: BP 144/87
--- NOTE | 2020-05-09 20:00 | NUR ---
Neurological: awake,alert,oriented Respiratory: diminished bilaterally Breath sounds: clear Cough: none Cardiovascular: no problem Gastrointestinal: soft Genito/Urinary: indwelling catheter Musculoskeketal: paralyzed RENZO ROLLINS
[2020-05-10] VITALS: BP 131/76
--- NOTE | 2020-05-10 | NUR ---
RESTING QUIETLY IN BED. NO C/O VOICED. CALL LIGHT IN REACH.
[2020-05-10 03:29] LABS: BILIRUBIN Negative (Negative); BLOOD Trace-Intact (Negative); CLARITY Clear (Clear); COLOR Yellow (Yellow); GLUCOSE 3+ (Negative); KETONE Negative (Negative); LEUKO ESTERASE Negative (Negative); NITRITE Negative (Negative); PH 7.5 (4.5-8.0); SPECIFIC GRAVITY 1.015 (1.001-1.030); UROBILINOGEN 0.2 E.U./dl (0.0-1.0)
[2020-05-10 03:37] LABS: BACTERIA TRACE; EPITHELIAL CELLS 0-2; RBC 0-2 rbc/hpf (0-2); YEAST 1+
[2020-05-10 06:16] LABS: HEMATOCRIT 31.1 % (42.0-52.0); MEAN CELL VOLUME 85.7 fl (80.0-94.0); MEAN CORPUSCULAR HGB 28.1 pg (27.0-31.0); MEAN CORPUSCULAR HGB CONC 32.8 g/dl (33.0-37.0); MEAN PLATELET VOLUME 9.5 fl (9.6-12.3); PLATELET COUNT AUTOMATED 219 10*3/uL (130-400); RED BLOOD COUNT 3.63 10*6/uL (4.50-5.90); RED CELL DISTRI WIDTH 13.5 % (0-14.5); WHITE BLOOD COUNT 4.6 10*3/uL (4.8-10.8)
[2020-05-10 06:26] LABS: CREATININE 2.24 mg/dL (0.70-1.30); POTASSIUM 4.6 mmol/L (3.5-5.1)
[2020-05-10 07:20] LABS: ATYPICAL LYMPHS 1 % (0-0); PLATELET SUFFICIENCY NORMAL (NORMAL); TOTAL CELLS COUNTED 100 #CELLS
[2020-05-10 08:00] VITALS: BP 146/90
--- NOTE | 2020-05-10 09:00 | NUR ---
PATIENT DEMANDING THAT THE NURSE FROM MONDAY SET A PASSWORD AND THAT THE PHONE IS NOW LOCKED UP AND CAN NOT BE USED. CALL PLACED TO NURSE & AWAITING RETURN CALL... BRICK SETTER OPERATOR LILIANA PRAKASH MADE AWARE
[2020-05-10 12:00] VITALS: BP 132/78
--- NOTE | 2020-05-10 13:04 | NUR ---
PATIENT STILL SAYING THAT THE NURSE FROM MONDAY SET A PASSWORD ON HIS PHONE AND THAT IT IS LOCKED UP - A CALL WAS PLACED TO THAT NURSE BY MYSELF AND HAD TO LEAVE A MESSAGE.. PT IS CURRENTLY TALKING ON HIS CELL PHONE..
--- NOTE | 2020-05-10 13:07 | NUR ---
PATIENT NOW SAYS THAT HIS FAMILY HAS THE CELL PHONE AND THEY ARE UPDATING IT AND IT IS STARTING TO WORK.
--- NOTE | 2020-05-10 13:13 | NUR ---
PATIENT REQUESTED TO LAY FLAT AND REFUSED REPOSITIONING
--- NOTE | 2020-05-10 15:22 | NUR ---
RENAL IN TO SEE PATIENT AND PATIENT REQUESTING DILAUDED - DR MALDONADO INFORMED
[2020-05-10 16:00] VITALS: BP 151/92
--- NOTE | 2020-05-10 16:06 | NUR ---
1X DILADUDED GIVEN PER ORDERS. PATIENT LAUGHING WITH STAFF... IVF DISCONTINUED PER RENAL ORDERS
--- NOTE | 2020-05-10 16:37 | NUR ---
SLEEPING AFTER MEDICATED
--- NOTE | 2020-05-10 19:37 | NUR ---
PATIENT RESTING IN BED WITH NO NEEDS MADE. STATES HE IS FEELING MUCH BETTER. REFUSING TO TURN. BED IN LOWEST POSITION, BED ALARM ON, CALL LIGHT IN REACH
[2020-05-10 20:00] VITALS: BP 126/75
--- NOTE | 2020-05-10 23:59 | NUR ---
24 HR chart check completed.
[2020-05-11] VITALS: BP 138/79
--- NOTE | 2020-05-11 00:46 | NUR ---
PATIENT RESTING IN BED WITH NO S/S OF DISTRESS. BED IN LOWEST POSITION, BED ALARM ON, CALL LIGHT IN REACH
[2020-05-11 06:18] LABS: HEMATOCRIT 33.8 % (42.0-52.0); MEAN CELL VOLUME 86.4 fl (80.0-94.0); MEAN CORPUSCULAR HGB 27.1 pg (27.0-31.0); MEAN CORPUSCULAR HGB CONC 31.4 g/dl (33.0-37.0); MEAN PLATELET VOLUME 9.5 fl (9.6-12.3); PLATELET COUNT AUTOMATED 280 10*3/uL (130-400); RED BLOOD COUNT 3.91 10*6/uL (4.50-5.90); RED CELL DISTRI WIDTH 13.8 % (0-14.5); WHITE BLOOD COUNT 7.6 10*3/uL (4.8-10.8)
[2020-05-11 06:31] LABS: CREATININE 1.73 mg/dL (0.70-1.30); POTASSIUM 4.4 mmol/L (3.5-5.1)
[2020-05-11 07:19] LABS: BURR CELLS MODERATE; PLATELET SUFFICIENCY NORMAL (NORMAL); TOTAL CELLS COUNTED 100 #CELLS
--- NOTE | 2020-05-11 07:56 | NUR ---
HAND SURGEON FAXED UPDATES TO [facility], WHEN MEDICALLY STABLE PATIENT CAN BE DISCHARGED TO THEIR FACILITY.
[2020-05-11 08:00] VITALS: BP 118/80
--- NOTE | 2020-05-11 09:44 | NUR ---
TWO ATTEMPTS AT TRYING TO CALL CONSULT TO DR GARNER'S ANSWERING SERVICE. NO ANSWER. WILL TRY AGAIN IN A LITTLE BIT.
--- NOTE | 2020-05-11 10:26 | NUR ---
DR GARNER'S ANSWERING SERVICE NOTIFIED OF CONSULT.
--- NOTE | 2020-05-11 10:30 | NUR ---
PHYSICAL THERAPY Patient seen this am 1:1 for therapy visit and was supine in bed upon therapist arrival. Patient identified by name / and was very pleasant / talkative throughout entire treatment. OT assistant golf professional was also present for observation this session as patient reports no new c/o's at this time. Patient transfers supine to sit EOB with MAX A x 2, tolerating only approx 45 seconds static EOB sit, CGA, due to c/o of increased dizziness. Patient assisted back to supine in bed, MOD A x 2 until dizziness subsided in approx 1-2 minutes. Patient completed additional supine to sit EOB, MAX x 2, tolerating approx 1 minute static EOB sit, however did demonstrate increased Decerebrate posture, requiring therapist assist x 2 for repositioning x 2 episodes. Patient returned to supine in bed due to dizziness c/o once again and remained in bed with call light, bed side rails raised and cell phone. Will continue per POC as tolerated, total treatment time 13 minutes. Jaret Alcantar, HAND SPRING REPAIRER HELPER
--- NOTE | 2020-05-11 10:46 | NUR ---
OT NOTE Pt was seen this A.M. 1:1 for 15 minute OT session. Upon arrival pt was supine in bed. Pt identified by name and and had complaints of generalized weakness. Pt transferred supine to sit EOB with maxA X 2. Upon inital rise to EOB pt presented with decerebrate posture requiring maxA X 2 to correct. After sitting EOB for aprox 45 seconds pt had complaints of dizziness resulting in pt transferring sit to supine with maxA X 2. After aprox 60 seconds pt had no other complaints. Pt then transferred supine to sit EOB with maxA X 2 again presenting with decerebrate posture requiring maxA X 2 to correct, during second attempt pt was able to tolerate aprox 60 seconds before requesting to lay back down. Pt was left supine in bed with call light in hand, tray table in place, and bed alarm activated for safety. Continue with POC as able. ALICIA Hutchison/Hans
--- NOTE | 2020-05-11 10:54 | NUR ---
REPAIR ORDER CLERK RECEIVED CALL FROM [employer]AD[employer]VIN [employer] MECHANICAL DESIGN ENGINEER. REPAIR ORDER CLERK PROVIDED HER WITH AN UPDATE.
--- NOTE | 2020-05-11 11:44 | NUR ---
PATIENT'S BLOOD SUGAR 402. REPEAT TEST READ 412. NOTIFIED DR BAHENA. HE STATED TO GO AHEAD AND GIVE THE 14 UNITS PER SLIDING SCALE AND TO RECHECK IN AN HOUR AND A HALF.
[2020-05-11 12:00] VITALS: BP 131/79
--- NOTE | 2020-05-11 12:21 | NUR ---
PT CAN GO TO [facility] WHEN MEDICALLY STABLE. WILL CONTINUE TO FOLLOW.
[2020-05-11 16:00] VITALS: BP 123/80
--- NOTE | 2020-05-11 16:26 | NUR ---
NOTIFIED DR BAHENA THAT PATIENT'S BLOOD SUGAR IS 478. GIVE SLIDING SCALE PER ORDERS. NO OTHER ORDERS.
--- NOTE | 2020-05-11 17:02 | NUR ---
PATIENT REQUESTING DILAUDID. NOTIFIED DR BAHENA. DR BAHENA SAID HE WANTS TO WAIT ON THE DILAUDID.
--- NOTE | 2020-05-11 18:15 | NUR ---
OXYCODONE GIVEN PER PATIENT REQUEST FOR COMPLAINTS OF JAW PAIN RATED 9/10. WILL ASSESS EFFECTIVENESS.
[2020-05-11 20:00] VITALS: BP 132/79
[2020-05-12] VITALS: BP 126/78
--- NOTE | 2020-05-12 01:23 | NUR ---
MEDICATED WITH PRN OXY FOR C/O BACK PAIN. WILL MONITOR
--- NOTE | 2020-05-12 02:35 | NUR ---
PATIENT'S FAMILY MEMBER CALLED IN. PT HAS NO PASSCODE SET UP. PHONE CALL TRANSFERRED INTO PT'S ROOM. PT DESIGNATED PASSCODE 222. PT THEN GAVE PASSCODE TO AUNT. PASSCODE TO BE UPDATED IN [facility].
--- NOTE | 2020-05-12 02:43 | NUR ---
PATIENT'S AUNT EVAN CALLED. SHE STATES THAT PATIENT CALLED HER AND WOKE HER UP. PATIENT'S AUNT DID GIVE CORRECT PASSCODE. SHE STATES THAT THE PATIENT DOES NOT TAKE ANY OXY AT HOME. SHE STATES HE IS A RECOVERING DRUG ADDICT AND HE CANNOT TAKE THOSE PAIN MEDICATIONS. SHE STATES SHE KNOWS HE PROBABLY HAS BEEN REQUESTING DILAUDID WELL. DR ROSALES MADE AWARE
--- NOTE | 2020-05-12 02:44 | NUR ---
WHILE THIS RN WAS ON THE PHONE WITH THE PATIENT'S AUNT, PATIENT CALLED OUT WITH THE CALL LIGHT. PATIENT TOLD FLACO SILVESTRE TO TELL HIS NURSE NOT TO TELL HIS AUNT WHAT MEDICATIONS HE IS TAKING. WHEN FLACO TOLD THIS RN, I HAD ALREADY TOLD HIS AUNT HIS CURRENT MEDICATIONS DUE TO HER KNOWING HIS PASSCODE. DR ROSALES MADE AWARE
[2020-05-12 07:08] LABS: BUN 43 mg/dl (7-24); CHLORIDE 108 mmol/L (98-107); CREATININE 1.15 mg/dL (0.70-1.30); POTASSIUM 4.5 mmol/L (3.5-5.1); SODIUM 139 mmol/L (136-145)
[2020-05-12 08:00] VITALS: BP 163/89
--- NOTE | 2020-05-12 08:49 | NUR ---
OT NOTE Attempted to see pt this A.M. for OT session and upon arrival pt was eating his breakfast. Will check back at a later time/date and continue with POC as able. ALICIA Hutchison/Hans
--- NOTE | 2020-05-12 10:12 | NUR ---
SPOKE WITH PATIENT'S AUNT, WHO IS ALSO HIS PRODUCTION SUPPORT DEVELOPER, PATIENT DOES NOT TAKE OXYCODONE AT HOME. WILL ADRESS WITH PHYSICIANS.
--- NOTE | 2020-05-12 10:16 | NUR ---
CALLED [facility], PATIENT HAS NOT HAD OXYCODONE FILLED SINCE SEPTEMBER 2018.
--- NOTE | 2020-05-12 10:17 | NUR ---
DR BAHENA CALLED REGARDING PATIENT NOT TAKING OXYCODONE AT HOME. WILL REVIEW OCT.
--- NOTE | 2020-05-12 10:55 | NUR ---
OT NOTE Second attempt made to see pt this A.M. for OT session and upon arrival pt was supine in bed asleep. Pt was easily aroused to verbal stimuli however stated "I am feeling weak and very tired, I am just going to rest for now." Will check back this P.M. and continue with POC as able. TRISH Hutchison
--- NOTE | 2020-05-12 11:37 | NUR ---
PT IS APPROVED TO GO TO [facility] ON DISCHARGE WHEN MEDICALLY STABLE.
[2020-05-12 12:00] VITALS: BP 135/81
--- NOTE | 2020-05-12 12:05 | NUR ---
OT NOTE Third attempt made to see pt this P.M. for OT session and upon arrival pt was supine in bed. Pt declined stating "I need a break today, I have already worked hard enough this week" No treatment provided at this time. Will check back at a later time/date and continue with POC as able. ALICIA Hutchison/Hans
--- NOTE | 2020-05-12 13:50 | NUR ---
BLOOD SUGAR CHECKED AND INSULIN GIVEN LATE PER PT REQUEST TO SLEEP.
--- NOTE | 2020-05-12 15:00 | NUR ---
PHYSICAL THERAPY Patient declined therapy this afternoon at 12:04 PN due ot being fatigued and wanting to rest. Will check back with patient at a later date. MELISSA BREWER QUALITY CONTROL ENGINEERING TECHNICIAN
--- NOTE | 2020-05-12 15:02 | NUR ---
PHYSICAL THERAPY Patient was approached 2 Xs this morning at 8:49 AM and then again at 10:55 AM and both times the patient said he wwas too tired to do therapy. Checked back with patient at 12:04 PM. tracy bobo aircraft captain
[2020-05-12 16:00] VITALS: BP 157/90
[2020-05-12] MEDS ORDERED: KEFLEX500 M1 PO (16:28)
--- NOTE | 2020-05-12 17:00 | NUR ---
DR BAHENA CALLED AND NOTIFIED OF DR PASCUAL ROMAN RECOMMENDATIONS OF KEFLEX HE STATES UNDERSTANDING. ALSO NOTIFIED OF PT REQUEST FOR DILAUDID. DR BAHENA STATES NO.
--- NOTE | 2020-05-12 17:22 | NUR ---
PT REQUESTED AND WAS MEDICATED WITH OXYCODONE FOR C/O GENERALIZED PAIN. CALL LIGHT IN REACH. WILL MONITOR
--- NOTE | 2020-05-12 18:15 | NUR ---
MEDICATION EFFECTIVE PER PT. CALL LIGHT IN REACH. WILL MONITOR
[2020-05-12 20:00] VITALS: BP 140/85
--- NOTE | 2020-05-12 21:06 | NUR ---
PATIENT'S BLOOD SUGAR 368. SUPPOSE TO GET 12 UNITS OF HUMALOG PER ORDER. PATIENT ONLY WANTS 6 UNITS. EDUCATED ON IMPORTANCE OF TAKING ALL ORDERED INSULIN. STILL REFUSING 12 UNITS
--- NOTE | 2020-05-12 21:22 | NUR ---
BED BATH GIVEN AND LINENS CHANGED AT THIS TIME
[2020-05-13 00:09] VITALS: BP 149/84
--- NOTE | 2020-05-13 01:10 | NUR ---
PATIENT RESTING IN BED WITH NO S/S OF DISTRESS. BED IN LOWEST POSITION, CALL LIGHT IN REACH
--- NOTE | 2020-05-13 06:01 | NUR ---
PATIENT STATES HE DOES NOT WANT ANY INSULIN UNTIL HE EATS HIS BREAKFAST. HE STATES THAT A BLOOD SUGAR OF 285 IS LOW FOR HIM.
--- NOTE | 2020-05-13 08:39 | NUR ---
TRAFFIC COURT REFEREE FAXED UPDATES TO [facility].
--- NOTE | 2020-05-13 10:05 | NUR ---
OT NOTE Pt was seen this A.M. 1:1 for 15 minute OT session. Upon arrival pt was supine in bed. Pt identified by name and and had no complaints at this time. Pt transferred supine to sit EOB with maxA X 2. Upon inital rise to the EOB pt presented with decerebrate posture that required maxA X 2 to correct. Pt tolerated sitting EOB for aprox 2 minutes before requesting to lay back down due to becoming dizzy. Pt transferred sit to supine with maxA X 2. There he was left with call light in hand, tray table in place, and bed alarm activated for safety. Continue with rec D/C plan to SNF. ALICIA Hutchison/Hans
--- NOTE | 2020-05-13 10:47 | NUR ---
PT WILL GO TO [facility] ON DISCHARGE WHEN MEDICALLY STABLE.
--- NOTE | 2020-05-13 11:10 | NUR ---
PHYSICAL THERAPY Patient seen this am 1;1 for therapy visit and was resting supine in bed upon therapist arrival. Patient identified by name / and reports no c/o's pain at this time. OT assistant community director was also present for observation this session as patient transfers supine to sit EOB with MAX A x 2, demonstrating intitial retrograde posture, MIN A to maintain upright position. Patient also demonstrated increaed LE extention posture requring therapist assist to correct safe seated balance. Patient only able to maintain static posture < 10 seconds and tolerated static EOB sit approx 2 minutes, prior to c/o of increased dizziness. Patient returned to supine in bed, reporting no dizziness < 30 seconds rest and declined therapist request for additional EOB sit. Patient remained in bed with call light, tray table and cell phone. Will continue per POC as tolerated, total treatment time 12 minutes. Jaret Alcantar, LEAD ASSEMBLER
--- NOTE | 2020-05-13 11:36 | NUR ---
EXERCISE INSTRUCT RECEIVED NOTICE OF PATIENT DISCHARGING. EXERCISE INSTRUCT SPOKE WITH SAQIB ALBERT. EXERCISE INSTRUCT REACHED OUT TO [facility] AND ARRANGED FOR A 2PM TRANSPORT. EXERCISE INSTRUCT NOTIFIED [facility], [facility], AND [facility]. EXERCISE INSTRUCT WILL FAX DEMOGRAPHICS TO [facility] AND DISCHARGE ORDERS TO [facility].
[2020-05-13 12:00] VITALS: BP 154/88
[2020-05-13] MEDS ORDERED: OXYCONTIN10 M1 PO (13:28)
--- NOTE | 2020-05-13 14:11 | NUR ---
Discharge instructions reviewed with patient/family. Patient receptive and verbalizes understanding. Follow-up care arranged. Written instructions given to patient/family. ROOSEVELT HUGGINS
--- NOTE | 2020-05-13 15:11 | NUR ---
PATIENT REFUSED TO HAVE WOUND PHOTOS TAKEN UPON DISCHARGE. ROOSEVELT HUGGINS
--- NOTE | 2020-05-14 13:57 | NUR ---
OCCUPATIONAL THERAPY CO-SIGN I approve of the Occupational Therapy notes written above. STEFFANIE MAI OTR/Hans
--- NOTE | 2020-05-15 07:28 | NUR ---
PHYSICAL THERAPY CO-SIGN I approve of the Physical Therapy notes written above. Margi Maldonado PT
== END 2020-05-13 14:11 | DRG 115 ==
LOC: ED 11:35 → EDHOLD 17:14 → 4E 17:14 → 5E 17:14 → 4E 05-06 13:42
PROVIDERS: Family Medicine; Physician Assistant; Student in an Organized Health Care Education/Training Program; ADMIT Internal Medicine; ATTEND Internal Medicine
DX: K11.5 Sialolithiasis (principal); Z68.26 Body mass index [BMI] 26.0-26.9, adult; K11.20 Sialoadenitis, unspecified; L89.153 Pressure ulcer of sacral region, stage 3; I88.9 Nonspecific lymphadenitis, unspecified; E11.39 Type 2 diabetes mellitus with other diabetic ophthalmic complication; H54.3 Unqualified visual loss, both eyes; E43 Unspecified severe protein-calorie malnutrition; E11.65 Type 2 diabetes mellitus with hyperglycemia; Z20.828 Contact with and (suspected) exposure to other viral communicable diseases; T78.40XA Allergy, unspecified, initial encounter; E11.319 Type 2 diabetes mellitus with unspecified diabetic retinopathy without macular edema; G89.29 Other chronic pain; D64.9 Anemia, unspecified; G82.20 Paraplegia, unspecified; E87.1 Hypo-osmolality and hyponatremia; E55.9 Vitamin D deficiency, unspecified; N17.9 Acute kidney failure, unspecified; E11.42 Type 2 diabetes mellitus with diabetic polyneuropathy; N11.9 Chronic tubulo-interstitial nephritis, unspecified; N31.9 Neuromuscular dysfunction of bladder, unspecified; G43.709 Chronic migraine without aura, not intractable, without status migrainosus; Z88.6 Allergy status to analgesic agent; Z88.1 Allergy status to other antibiotic agents; Z88.2 Allergy status to sulfonamides; Z88.8 Allergy status to other drugs, medicaments and biological substances; Z90.49 Acquired absence of other specified parts of digestive tract; Z83.3 Family history of diabetes mellitus; Z79.899 Other long term (current) drug therapy; N10 Acute pyelonephritis

== ENCOUNTER 2020-06-17 12:07 | Observation (INO) | payer MEDICAID ==
[~2020-06-17] VITALS: Ht 149.8 cm; Wt 56.0 kg
[~2020-06-17 12:07] MED LIST changes: +LASIX40 MG PO; +NYSTOP60 GM T; +PEPCID40 MG PO; +POTASSIUM CHLO10 MEQ PO
[2020-06-17 12:34] VITALS: BP 111/71
--- NOTE | 2020-06-17 15:10 | NUR ---
PATIENT REPORT GIVEN TO NOREEN LOMBARDO RN AT THIS TIME.
--- NOTE | 2020-06-17 15:20 | NUR ---
PER PODIATRY, PATIENT IS TO BE NPO UNTIL IT IS DECIDED WHETHER HE WILL GO TO SURGERY OR NOT TODAY.
--- NOTE | 2020-06-17 15:30 | NUR ---
PATIENT REQUESTING BGL. 167 AT BEDSIDE.
--- NOTE | 2020-06-17 15:33 | NUR ---
PATIENT TO ULTRASOUND AT THIS TIME
[2020-06-17 16:00] VITALS: BP 130/88
--- NOTE | 2020-06-17 16:52 | NUR ---
PATIENT RETURS FROM CT AT THIS TIME
--- NOTE | 2020-06-17 17:19 | NUR ---
PATIENT IS ADAMANT THAT HE NO LONGER HAS ANY WOUNDS. CONTINUALLY STATES "I'M HEALED". REFUSES FOR ME TO INSPECT AREAS OF KNOWN PAST WOUNDS.
--- NOTE | 2020-06-17 17:31 | NUR ---
DR GRIMES CONTACTED BY THIS RN. STATES APPLY WELL PADDED U SPLINT, ELEVATE EXTREMITY AND DISCHARGE PATIENT. HAVE HIM FOLLOW UP IN DR GRIMES OFFICE. DR KRIS BAHENA MADE AWARE PATIENT OK FOR DISCHARGE.
[2020-06-17 18:44] LABS: BASO % 0.3 % (0.0-1.0); EOS # 0.2 10*3/uL (0.0-0.4); EOS % 2.2 % (1.0-4.0); HEMATOCRIT 31.2 % (42.0-52.0); LYMPH % 25.1 % (27.0-41.0); MEAN CELL VOLUME 85.5 fl (80.0-94.0); MEAN CORPUSCULAR HGB 27.9 pg (27.0-31.0); MEAN CORPUSCULAR HGB CONC 32.7 g/dl (33.0-37.0); MEAN PLATELET VOLUME 10.2 fl (9.6-12.3); MONO # 0.9 10*3/uL (0.1-1.0); MONO % 11.8 % (3.0-9.0); NEUT # 4.7 10*3/uL (2.3-7.9); NEUT % 59.3 % (47.0-73.0); PLATELET COUNT AUTOMATED 197 10*3/uL (130-400); RED BLOOD COUNT 3.65 10*6/uL (4.50-5.90); RED CELL DISTRI WIDTH 14.3 % (0-14.5); WHITE BLOOD COUNT 7.9 10*3/uL (4.8-10.8)
[2020-06-17 18:55] LABS: ALBUMIN 2.5 gm/dl (3.1-4.5); ALKALINE PHOSPHATASE 131 U/L (45-117); BUN 24 mg/dl (7-24); CHLORIDE 108 mmol/L (98-107); CREATININE 0.63 mg/dL (0.70-1.30); POTASSIUM 4.7 mmol/L (3.5-5.1); SGOT/AST 11 IU/L (3-35); SGPT/ALT 15 U/L (12-78); SODIUM 138 mmol/L (136-145); TOTAL PROTEIN 6.5 gm/dL (6.4-8.2)
[2020-06-17 19:57] VITALS: BP 108/70
[2020-06-17 21:00] VITALS: BP 130/88
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
--- NOTE | 2020-06-17 22:05 | NUR ---
DR. METZGER NOTIFIED PATIENT'S HOME MED REQ IS UP TO DATE.
--- NOTE | 2020-06-17 23:53 | NUR ---
PATIENT MEDICATED WITH TORADOL FOR COMPLAINTS OF LEFT ANKLE PAIN. WILL MONITOR FOR EFFECTIVENESS. CALL LIGHT IN REACH.
[2020-06-18] VITALS: BP 101/67
--- NOTE | 2020-06-18 00:30 | NUR ---
TORADOL EFFECTIVE AT THIS TIME. WILL CONTINUE TO MONITOR.
[2020-06-18 07:43] LABS: ALBUMIN 2.1 gm/dl (3.1-4.5); BUN 32 mg/dl (7-24); CHLORIDE 107 mmol/L (98-107); POTASSIUM 4.2 mmol/L (3.5-5.1); SODIUM 131 mmol/L (136-145)
[2020-06-18 07:47] LABS: ALKALINE PHOSPHATASE 120 U/L (45-117); CREATININE 1.01 mg/dL (0.70-1.30); SGOT/AST 12 IU/L (3-35); SGPT/ALT 13 U/L (12-78); TOTAL PROTEIN 6.1 gm/dL (6.4-8.2)
[2020-06-18 08:00] VITALS: BP 112/67
[2020-06-18 08:37] LABS: HEMATOCRIT 30.5 % (42.0-52.0); MEAN CELL VOLUME 85.4 fl (80.0-94.0); MEAN CORPUSCULAR HGB 27.7 pg (27.0-31.0); MEAN CORPUSCULAR HGB CONC 32.5 g/dl (33.0-37.0); MEAN PLATELET VOLUME 10.7 fl (9.6-12.3); NUCLEATED RED BLOOD CELL 0.5 % (0.0-0.0); PLATELET COUNT AUTOMATED 186 10*3/uL (130-400); RED BLOOD COUNT 3.57 10*6/uL (4.50-5.90); RED CELL DISTRI WIDTH 14.4 % (0-14.5); WHITE BLOOD COUNT 6.3 10*3/uL (4.8-10.8)
[2020-06-18 09:29] LABS: PLATELET SUFFICIENCY NORMAL (NORMAL); TOTAL CELLS COUNTED 100 #CELLS
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
--- NOTE | 2020-06-18 11:18 | NUR ---
DILAUDID GIVEN PER ORDER AND REQUEST FOR R FOOT PAIN.
--- NOTE | 2020-06-18 11:44 | NUR ---
DR. GRIMES HAS ROUNDED.
[2020-06-18 12:00] VITALS: BP 120/63
--- NOTE | 2020-06-18 14:07 | NUR ---
MEDICATED WITH PRN MORPHINE PER ORDER AND REQUEST. PATIENT HAS SINCE SEEN SURGEON AND IS GOING TO HAVE SURGERY TOMORROW SO NOW HE WILL ALLOW WOUND CARE.
--- NOTE | 2020-06-18 14:27 | NUR ---
DR. PEDERSEN AWARE PATIENT RECEPTIVE TO WOUND CARE NOW. NO PICTURES BUT THESE WOUNDS ARE CHRONIC AND PATIENT GOES TO [facility].
[2020-06-18 16:00] VITALS: BP 109/60
--- NOTE | 2020-06-18 16:58 | NUR ---
PATIENT GIVES AN EXCUSE EVERYTIME THIS RN GOES INTO ROOM SO THAT I CAN MEASURE HIS WOUNDS ON BUTTOCKS/COCCYX. PATIENT IS ON PHONE AND WOULD LIKE TO WAIT TILL HIS NEXT PAIN SHOT IS DUE. R FOOT/TOES WRAPPED WITH DRY GAUZE PER ORDER.
--- NOTE | 2020-06-18 18:07 | NUR ---
PATIENT IS NOW EATING AND DOES NOT WANT TURNED FOR OPTIFOAM GENTLE.
--- NOTE | 2020-06-18 18:50 | NUR ---
PATIENT IS OB PHONE AGAIN DOES NOT WANT TURNED BUT WILL TAKE A PAIN SHOT.
--- NOTE | 2020-06-18 19:08 | NUR ---
MEDICATED WITH PRN MORPHINE PER ORDER AND REQUEST.
[2020-06-18 20:00] VITALS: BP 109/70
--- NOTE | 2020-06-18 20:00 | NUR ---
MORPHINE EFFECTIVE. PATIENT IN BED TALKING ON PHONE. STATES PAIN IS BETTER.
[2020-06-19] VITALS (14 sets, daily range): BP systolic 72–142; BP diastolic 48–98
--- NOTE | 2020-06-19 | NUR ---
MORPHINE EFFECTIVE. STATES ANKLE IS FEELING BETTER AT THIS TIME. CALL LIGHT IN REACH.
--- NOTE | 2020-06-19 00:43 | NUR ---
PATIENT MEDICATED WITH MORPHINE FOR COMPLAINTS OF ANKLE PAIN. WILL MONITOR FOR EFFECTIVENESS. CALL LIGHT IN REACH.
--- NOTE | 2020-06-19 04:00 | NUR ---
MEDICATED WITH MORPHINE FOR COMPLAINTS OF ANKLE PAIN. WILL CONTINUE TO MONITOR.
--- NOTE | 2020-06-19 04:37 | NUR ---
MORPHINE EFFECTIVE. RESTING IN BED WITH EYES CLOSED. NO SIGNS OR SYMPTOMS OF DISTRESS NOTED. CALL LIGHT IN REACH.
[2020-06-19 07:53] LABS: BASO % 0.3 % (0.0-1.0); EOS # 0.3 10*3/uL (0.0-0.4); EOS % 3.7 % (1.0-4.0); HEMATOCRIT 29.4 % (42.0-52.0); LYMPH # 1.9 10*3/uL (1.3-4.4); LYMPH % 27.6 % (27.0-41.0); MEAN CORPUSCULAR HGB 27.9 pg (27.0-31.0); MEAN CORPUSCULAR HGB CONC 31.3 g/dl (33.0-37.0); MEAN PLATELET VOLUME 10.2 fl (9.6-12.3); MONO # 0.7 10*3/uL (0.1-1.0); MONO % 10.3 % (3.0-9.0); NEUT # 3.9 10*3/uL (2.3-7.9); NEUT % 57.4 % (47.0-73.0); PLATELET COUNT AUTOMATED 213 10*3/uL (130-400); RED CELL DISTRI WIDTH 14.4 % (0-14.5); WHITE BLOOD COUNT 6.8 10*3/uL (4.8-10.8)
[2020-06-19 08:07] LABS: BUN 28 mg/dl (7-24); CHLORIDE 110 mmol/L (98-107); CREATININE 0.77 mg/dL (0.70-1.30); POTASSIUM 4.5 mmol/L (3.5-5.1); SODIUM 139 mmol/L (136-145)
[2020-06-19 08:29] LABS: MEAN CELL VOLUME 89.1 fl (80.0-94.0)
--- NOTE | 2020-06-19 08:50 | NUR ---
MEDICATED WITH PRN MORPHINE PER ORDER AND REQUEST.
--- NOTE | 2020-06-19 09:00 | NUR ---
Treasurer in to talk to patient. Patient states lives at home with aunt. There are no steps in the home. Physician: dorota elizabeth [facility]acy: [facility] Home health services: none Patient's level of ADLs: BEDFAST Patient has working utilities: all working DME: wheelchair,hospsital bed Follow-up physician's appointment after d/c: will be made by hospitalist nurse director upon discharge Does patient want to access PORTAL?: no Discharge plan discussed. patient lives at home with aunt, she is his caregiver. he is bedfast/wheelchair bound. he will return home with aunt and denies any home needs, case management will follow. ROD PRECIADO
--- NOTE | 2020-06-19 09:14 | NUR ---
PT. INSTRUCTED ON I/S WITH Q 1 HOUR USE AND TO USE AT HOME UPON DISCHARGE. PT. ACHIEVED A VOLUME OF 1000.
--- NOTE | 2020-06-19 17:54 | NUR ---
MEDICATED WITH TORODOL PER ORDER AND REQUEST.
--- NOTE | 2020-06-19 20:43 | NUR ---
MEDICATED ANASTASIYA MS SLOW IV PUSH FOR C/O RIGHT LEG PAIN RATED A 10/10. CALL LIGHT WITHIN REACH; WILL CONTINUE TO MONITOR.
--- NOTE | 2020-06-19 21:15 | NUR ---
RESTING IN BED; VOICES NO C/O PAIN AT THIS TIME. MS APPARENTLY EFFECTIVE.
--- NOTE | 2020-06-19 21:38 | NUR ---
BLOOD SUGAR 158.
[2020-06-20] VITALS: BP 112/68
--- NOTE | 2020-06-20 | NUR ---
C/O PAIN; INFORMED PATIENT THAT IT WAS TOO SOON FOR PAIN MEDICATION; VERBALIZED UNDERSTANDING.
--- NOTE | 2020-06-20 01:18 | NUR ---
MEDICATED WITH MS FOR C/O RIGHT LEG PAIN.
--- NOTE | 2020-06-20 02:00 | NUR ---
RESTING IN BED; VOICES NO C/O. MS APPARENTLY EFFECTIVE. CALL LIGHT WITHIN REACH.
--- NOTE | 2020-06-20 05:44 | NUR ---
MEDICATED WITH MS SLOW IV PUSH FOR C/O RIGHT LEG PAIN RATED A 10/10.
[2020-06-20 07:00] LABS: BUN 31 mg/dl (7-24); CHLORIDE 116 mmol/L (98-107); CREATININE 1.01 mg/dL (0.70-1.30); POTASSIUM 5.2 mmol/L (3.5-5.1); SODIUM 142 mmol/L (136-145)
--- NOTE | 2020-06-20 07:00 | NUR ---
ARRIVED ON SHIFT, REPORT RECEIVED FROM OFFGOING NURSE, ASSUMED CARE OF PATIENT.
--- NOTE | 2020-06-20 07:30 | NUR ---
INTRODUCED SELF TO PATIENT, BED IN LOW POSITION, WHEEL LOCKS ENGAGED, SIDE RAILS UP X 2 FOR TURNING AND REPOSITIONING, BED ALARM ON, CALL LIGHT WITHIN REACH NO NEEDS VOICED AT THIS TIME. WHITEBOARD UPDATED.
[2020-06-20 08:00] VITALS: BP 106/62
--- NOTE | 2020-06-20 09:52 | NUR ---
PATIENT C/O LEFT LE PAIN RATES 8/10 AND DESCRIBES ACHING, MEDICTED WITH MORPHINE ORDERED PRN, WHITE BOARD UPDATED WITH NEXT AVAILABLE DOSE.
--- NOTE | 2020-06-20 10:50 | NUR ---
PATIENT REPORTS GOOD RELIEF FROM MORPHINE GIVEN X 1 HOUR AGO RATES PAIN 3/10
[2020-06-20 12:00] VITALS: BP 83/52
--- NOTE | 2020-06-20 13:53 | NUR ---
PATIENT C/O OF LEFT LE PAIN RATES PAIN 8/10 AND ACHING MEDICATED WITH MORPHINR ORDERED PRN, WHITE BOARD UPDATED WITH NEXT AVAILABLE DOSE.
[2020-06-20 16:00] VITALS: BP 113/72
--- NOTE | 2020-06-20 18:20 | NUR ---
PATIENT C/O LLE PAIN 03/16 MEDICATED WITH MORPHINE ORDERED PRN , WHITE BOARD UPDATE WITH NEXT AVAILABLE TIME.
[2020-06-20 20:00] VITALS: BP 104/70
--- NOTE | 2020-06-20 20:00 | NUR ---
RESTING IN BED WITH EYES CLOSED. NO DISTRESS NOTED; RESPIRATIONS EASY & UNLABORED ON ROOM AIR. CALL LIGHT WITHIN REACH.
--- NOTE | 2020-06-20 22:34 | NUR ---
MEDICATED WITH MS 1 MG SLOW IV PUSH FOR C/O RIGHT LEG PAIN.
--- NOTE | 2020-06-20 23:00 | NUR ---
RESTING IN BED; VOICES NO C/O AT THIS TIME. CALL LIGHT WITHIN REACH.
[2020-06-21] VITALS: BP 92/66
--- NOTE | 2020-06-21 02:41 | NUR ---
MEDICATED WITH MS 1 MG SLOW IV PUSH FOR C/O RIGHT LEG PAIN RATED AN 8/10. CALL LIGHT REMAINS WITHIN REACH.
--- NOTE | 2020-06-21 03:15 | NUR ---
RESTING IN BED WITH EYES CLOSED; VOICES NO C/O. MS GIVEN EARLIER APPARENTLY EFFECTIVE. CALL LIGHT GABRIELLA CASSIDY.
--- NOTE | 2020-06-21 04:30 | NUR ---
BATHED BY CHERI. PT. VOICES NO C/O AT THIS TIME. CALL LIGHT WITHIN REACH.
[2020-06-21 06:38] LABS: BASO % 0.2 % (0.0-1.0); EOS # 0.1 10*3/uL (0.0-0.4); EOS % 1.6 % (1.0-4.0); HEMATOCRIT 24.6 % (42.0-52.0); LYMPH # 1.2 10*3/uL (1.3-4.4); LYMPH % 14.6 % (27.0-41.0); MEAN CELL VOLUME 87.5 fl (80.0-94.0); MEAN CORPUSCULAR HGB 28.1 pg (27.0-31.0); MEAN CORPUSCULAR HGB CONC 32.1 g/dl (33.0-37.0); MEAN PLATELET VOLUME 10.6 fl (9.6-12.3); MONO # 0.8 10*3/uL (0.1-1.0); MONO % 9.2 % (3.0-9.0); NEUT # 6.2 10*3/uL (2.3-7.9); NEUT % 73.6 % (47.0-73.0); PLATELET COUNT AUTOMATED 174 10*3/uL (130-400); RED BLOOD COUNT 2.81 10*6/uL (4.50-5.90); RED CELL DISTRI WIDTH 15.2 % (0-14.5); WHITE BLOOD COUNT 8.4 10*3/uL (4.8-10.8)
[2020-06-21 06:55] LABS: BUN 35 mg/dl (7-24); CHLORIDE 115 mmol/L (98-107); SODIUM 141 mmol/L (136-145)
--- NOTE | 2020-06-21 07:00 | NUR ---
Arrived on shift, report received from offgoing nurse, assumed care of patient.
--- NOTE | 2020-06-21 07:11 | NUR ---
MEDICATED WITH MS FOR C/O RIGHT LEG PAIN RATED A 10/10.
--- NOTE | 2020-06-21 07:25 | NUR ---
Introduced self to patient, bed in low position, wheel locks engaged, side rails up x 2 for turning and repositioning, call light within reach, no needs voiced at this time, white board updated.
[2020-06-21 08:00] VITALS: BP 100/68
--- NOTE | 2020-06-21 08:00 | NUR ---
CALL PLACED TO PHARMACY REQUESTED ALBUMIN SCHEDULED FOR 0800.
--- NOTE | 2020-06-21 11:52 | NUR ---
Morphine given per patient request right foot pain.
[2020-06-21 12:00] VITALS: BP 113/70
--- NOTE | 2020-06-21 12:30 | NUR ---
PATIENT REPORTS GOOD RELIEF FROM MORPHINE GIVEN X 1 HOUR AGO.
--- NOTE | 2020-06-21 15:53 | NUR ---
PATIENT C/O PAIN 9/10 RLE MEDICTAED WITH MORPHINE ORDERED.
[2020-06-21 16:00] VITALS: BP 103/71
--- NOTE | 2020-06-21 16:53 | NUR ---
PATIENT REPORTS GOOD RELIEF FROM MORPHINE GIVEN X 1 HOUR AGO.
[2020-06-21 20:00] VITALS: BP 104/68
--- NOTE | 2020-06-21 20:00 | NUR ---
PRN MORPHINE GIVEN FOR PT COMPLAINTS OF PAIN IN THE RIGHT ANKLE RATING IT 10/10. CALL LIGHT WITHIN REACH, WILL MONITOR
--- NOTE | 2020-06-21 21:00 | NUR ---
PRN MORPHINE SOMEWHAT EFFECTIVE PER PT
--- NOTE | 2020-06-21 22:23 | NUR ---
NOTIFIED DR. PEDERSEN THAT PATIENT HAD TO BE PUT ON 2L NC FOR A PULSE OX IN THE UPPER 80'S. NOTIFIED HER THAT PATIENT IS IN NO DISTRESS AND HE IS LAYING FLAT AND GETTING MORPHINE Q4H. CALL LIGHT WITHIN REACH, WILL MONITOR
[2020-06-22] VITALS: BP 106/77
--- NOTE | 2020-06-22 00:32 | NUR ---
PRN MORPHINE GIVEN FOR PT COMLAINTS OF 10/10 FOOT/ ANKLE PAIN. CALL LIGHT WITHIN REACH,WILL MONITOR
--- NOTE | 2020-06-22 01:30 | NUR ---
PRN MOPRHINE EFFECTIVE PER PT
--- NOTE | 2020-06-22 04:47 | NUR ---
24 HR chart check completed.
--- NOTE | 2020-06-22 05:33 | NUR ---
PRN MORPHINE GIVEN FOR PT COMPLAINTS OF FOOT PAIN RATING IT 8/10. CALL LIGHT WITHIN REACH, WILL MONITOR
--- NOTE | 2020-06-22 05:38 | NUR ---
PATIENT STATES HE WANTS TO WAIT UNTIL HE HAS BREAKFAST TO TAKE HIS INSULIN
--- NOTE | 2020-06-22 06:44 | NUR ---
PATIENT REQUESTING SOMETHING FOR INDIGESTION LIKE PEPTO-BISMOL. NOTIFIED DR. PEDERSEN. ORDER RECIEVED FOR MAALOX
--- NOTE | 2020-06-22 07:20 | NUR ---
INTRODUCED SELF TO PATIENT, BED IN LOW POSITION, WHEEL LOCKS ENGAGED, SIDE RAILS UP X 2 FOR TURNING AND REPOSITIONING, BED ALARM ON, CALL LIGHT WITHIN REACH, REQUEST MYLANTA AND MOM, NO OTHER NEEDS VOICED, REFUSED AM INSULIN, EDUCATED ON IMPORTANCE OF TAKING ALL MEDICATIONS ORDERED, VERSED UNDERSTANDING, WHITE BOARD UPDATED.
--- NOTE | 2020-06-22 07:41 | NUR ---
MEDICATED WITH MYLANTA AND MOM PER ORDERS AND PATIENT REQUEST.
[2020-06-22 08:00] VITALS: BP 112/68
[2020-06-22 09:47] LABS: BASO % 0.2 % (0.0-1.0); EOS # 0.3 10*3/uL (0.0-0.4); EOS % 4.3 % (1.0-4.0); HEMATOCRIT 24.2 % (42.0-52.0); LYMPH # 0.8 10*3/uL (1.3-4.4); LYMPH % 12.5 % (27.0-41.0); MEAN CORPUSCULAR HGB 27.5 pg (27.0-31.0); MEAN CORPUSCULAR HGB CONC 30.6 g/dl (33.0-37.0); MEAN PLATELET VOLUME 10.5 fl (9.6-12.3); MONO # 0.7 10*3/uL (0.1-1.0); MONO % 10.2 % (3.0-9.0); NEUT # 4.8 10*3/uL (2.3-7.9); NEUT % 72.5 % (47.0-73.0); PLATELET COUNT AUTOMATED 184 10*3/uL (130-400); RED BLOOD COUNT 2.69 10*6/uL (4.50-5.90); RED CELL DISTRI WIDTH 15.3 % (0-14.5); WHITE BLOOD COUNT 6.6 10*3/uL (4.8-10.8)
--- NOTE | 2020-06-22 09:48 | NUR ---
PATIENT C/O LEG PAIN RATES PAIN 10/10 MEDICATED WITH MORPHINE ORDERED PRN, EDUCATED ON RISK FOR RESP DEPRESSION AND OPIATE DEPENDENCE, VERSED UNDERSTANDING, WHITE BOARD UPDATED WITH NEXT AVAILABLE DOSE.
--- NOTE | 2020-06-22 10:30 | NUR ---
PATIENT REPORTS GOOD RELIEF FROM MORPHINE GIVEN.
--- NOTE | 2020-06-22 11:37 | NUR ---
patient will be discharged to home today. case management faxed patient's information to [facility] and informed them patient would be a discharge to home today
[2020-06-22 12:00] VITALS: BP 115/54
[2020-06-22] MEDS ORDERED: NORCO 5-325 TA1 EACH PO ×2 (13:25)
--- NOTE | 2020-06-22 13:39 | NUR ---
KIDNEY TRIMMER NOTIFIED OF PATIENT DISCHARGE. KIDNEY TRIMMER SPOKE WITH SAQIB TRUJILLO. KIDNEY TRIMMER REACHED OUT TO PATIENTS AUNT EVAN TO CONFIRM 4PM WOULD WORK FOR HER TO RECEIVE THE PATIENT. SHE AGREED. KIDNEY TRIMMER CONTACTED [facility] AND ARRANGED FOR A 4PM TRANSPORT. KIDNEY TRIMMER TO FAX DEMOGRAPHICS TO [facility]. KIDNEY TRIMMER NOTIFIED SOFIA JUAREZ.
--- NOTE | 2020-06-22 17:59 | NUR ---
Discharge instructions reviewed with patient. Patient receptive and verbalizes understanding. Follow-up care arranged. Written instructions given to PATIENT, PORT DEACESSED, PATIENT REFUSED ALL PICTURES OF WOUNDS, STATES THEY ARE JUST SCABS, PATIENT IS NON-MONITORED, TAKEN OUT VIA STRETCHER BY [facility]. RONNIE MONTIEL
[2020-06-23] MEDS ORDERED: HUMALOG100 UNIT/2 SC ×2 (07:58→07:59)
== END 2020-06-22 17:59 | disposition home or self-care (01) ==
LOC: ED 12:07 → EDHOLD 15:37 → 5E 15:37
PROVIDERS: Family Medicine; Internal Medicine; Orthopaedic Surgery; Student in an Organized Health Care Education/Training Program; ADMIT Internal Medicine; ATTEND Internal Medicine
DX: M84.661A Pathological fracture in other disease, right tibia, initial encounter for fracture (principal); G82.20 Paraplegia, unspecified; G89.29 Other chronic pain; R00.0 Tachycardia, unspecified; E11.39 Type 2 diabetes mellitus with other diabetic ophthalmic complication; H54.7 Unspecified visual loss; L89.513 Pressure ulcer of right ankle, stage 3; E11.65 Type 2 diabetes mellitus with hyperglycemia; E11.42 Type 2 diabetes mellitus with diabetic polyneuropathy; E55.9 Vitamin D deficiency, unspecified; N31.9 Neuromuscular dysfunction of bladder, unspecified; E43 Unspecified severe protein-calorie malnutrition

== ENCOUNTER 2020-06-23 00:57 | Observation (INO) | payer MEDICAID ==
[2020-06-23] VITALS (12 sets, daily range): BP systolic 62–160; BP diastolic 26–98
[~2020-06-23] VITALS: Ht 149.8 cm; Wt 61.0 kg
[~2020-06-23 00:57] MED LIST changes: +NORCO 5-325 TA1 EACH PO
[2020-06-23 01:45] LABS: BASO % 0.2 % (0.0-1.0); EOS % 0.3 % (1.0-4.0); HEMATOCRIT 24.3 % (42.0-52.0); LYMPH # 0.5 10*3/uL (1.3-4.4); LYMPH % 7.7 % (27.0-41.0); MEAN CELL VOLUME 91.4 fl (80.0-94.0); MEAN CORPUSCULAR HGB 27.8 pg (27.0-31.0); MEAN CORPUSCULAR HGB CONC 30.5 g/dl (33.0-37.0); MEAN PLATELET VOLUME 10.9 fl (9.6-12.3); MONO # 0.3 10*3/uL (0.1-1.0); MONO % 4.9 % (3.0-9.0); NEUT # 5.3 10*3/uL (2.3-7.9); NEUT % 86.4 % (47.0-73.0); PLATELET COUNT AUTOMATED 201 10*3/uL (130-400); RED BLOOD COUNT 2.66 10*6/uL (4.50-5.90); RED CELL DISTRI WIDTH 15.3 % (0-14.5); WHITE BLOOD COUNT 6.1 10*3/uL (4.8-10.8)
[2020-06-23 02:05] LABS: ALBUMIN 3.4 gm/dl (3.1-4.5); ALKALINE PHOSPHATASE 126 U/L (45-117); BUN 37 mg/dl (7-24); CHLORIDE 110 mmol/L (98-107); POTASSIUM 4.9 mmol/L (3.5-5.1); SGOT/AST 8 IU/L (3-35); SGPT/ALT 17 U/L (12-78); SODIUM 140 mmol/L (136-145); TOTAL PROTEIN 6.8 gm/dL (6.4-8.2)
[2020-06-23 02:06] LABS: TROPONIN I 0.037 ng/ml (<0.045)
--- NOTE | 2020-06-23 05:13 | NUR ---
DR. SIM CALLED D/T PT VITALS, DR. CROOKS AWARE WELL, RN CONTINUING TO MONITOR
--- NOTE | 2020-06-23 05:20 | NUR ---
PT IN [place] POSITION
--- NOTE | 2020-06-23 05:45 | NUR ---
NO WOUND PHOTOS TAKEN, PT REFUSED, RN ADVISED NOT TO UNDRESS PT LEGS PER DR. CROOKS
--- NOTE | 2020-06-23 06:46 | NUR ---
PT DENIES WOUNDS/PHOTOS, RN REQUESTED TO LOOK FOR WOUNDS PT REFUSED AT THIS TIME
--- NOTE | 2020-06-23 07:36 | NUR ---
PT REPORT RECEIVED. BP IS 130/82. PT HAS NO VOICED COMPLAINTS AT THIS TIME BESIDES HIS CHRONIC PAIN WHOICH HE HAS HAD FOR YEARS. HE STATES HIS SOB HAS RESOLVED COMPLETELY. POX IS 96% ON ROOM AIR. BSBS 387. PT A&O. PT DENIES HAVING BEEN ASKED ABOUT HIS WOUNDS AND HE DOES HAVE MULTIPLE WOUNDS, MANY SEVERE ACROSS COCCYX WHICH PT STATES WE MAY PHOTOGRAPH WELL HIS RECENT SURGICAL WOUNDS ON HIS LEG. THE WOUND ON HIS COCCYX HAS AN EXTREMELY FOUL ODOR AND THICK GREEN DRAINAGE ON THE DAYS-OLD DRESSING WHICH I REMOVED. HE REMAINS AFEBRILE. PT REFUSES INSULIN DOSE UNTIL AFTER BREAKFAST WHICH HAS NOT YET ARRIVED.
--- NOTE | 2020-06-23 07:42 | NUR ---
"JOHN", PT'S AUNT, AT [phone]. PT ASKS ME TO PHONE HER TO LET HER KNOW HIS CELLPHONE IS NOT WITH HIM. DONE.
--- NOTE | 2020-06-23 07:47 | NUR ---
LUNCH AND DINNER MEALS NOW ORDERED.
[2020-06-23] MEDS ORDERED: HUMALOG100 UNIT/2 SC ×2 (07:58→07:59)
--- NOTE | 2020-06-23 08:00 | NUR ---
PT STATES HIS INSULIN DOSING IS DIFFERENT THAN WHAT WAS ON PREVIOUS MED-REC AND 3WHAT HAS BEEN ORDERED GIVEN ON THE eMAR. MED-REC UPDATED. HE STATES HE TAKES 18 UNITS LISPRO AT 0900 AND 1800 AND 12 UNITS LISPRO AT 1300. HE STATES HE DOESN'T ALWAYS TAKE THESE INSULIN DOSES AT ALL DEPENDING ON HIS GLUCOSE RESULTS.
--- NOTE | 2020-06-23 08:02 | NUR ---
UNABLE TO REACH KITCHEN TO INFORM THEM BREAKFAST TRAY HAS NOT YET ARRIVED. NO ANSWER.
--- NOTE | 2020-06-23 08:31 | NUR ---
[facility] CALLED AGAIN, DESPITE ORDER ON FILETHEY CLAIM NO ORDER HAS BEEN INPUT. I DID ASK FOR A BREAKFAST TRAY IN ORDER TO PROVIDE HIS INSULIN AND THEY STATE THEY WILL SEND ONE NOW,.
--- NOTE | 2020-06-23 08:43 | NUR ---
PT STATES HE WILL NOT ACCEPT A SLIDING SCALE DOSE OF LISPOR AND ASKS I CALL THE DR TO HAVE HIS ORDER CHANGED TO THE DOSING MENTIONED IN PRIOR NOTE AND DOCUMENTED NEWLY ON HIS eMAR.
--- NOTE | 2020-06-23 09:11 | NUR ---
PT EATING MEAL TRAY NOW, NO VOICED COMPLAINTS, VITALS STABLE.
--- NOTE | 2020-06-23 09:28 | NUR ---
CLAUDE RAM THE REMOTE SENSING RESEARCH SCIENTIST STATES TO *NOT* REMOVE THE DRESSINGS FROM PT'S RIGHT KNEE AND RIGHT ANKLE (SURGICAL WOUND) AT THIS TIME SINCE PT WAS JUST D/C'D YESTERDAY AND HAS NOT YET HAD WOUND CARE REEVALUATION BY THE SURGEON.
--- NOTE | 2020-06-23 09:30 | NUR ---
AND CRYTSMATTHEW RAM NOW DIRECTS TO REMOVE SURGICAL DRESSINGS.
--- NOTE | 2020-06-23 09:30 | NUR ---
jens cruz here to assist with wound assessments and photography. ALL KNOWN WOUNDS PHOTOGRAPHED. SURGICAL WOUNDS REDRESSED PER DR GALEN NUÑEZ.
--- NOTE | 2020-06-23 09:33 | NUR ---
Spoke with Dr. Cota regarding dressing to right lower extremity. He states that it will be okay to remove the dressing to obtain the photograph and redress the area.
--- NOTE | 2020-06-23 09:52 | NUR ---
MEDICATED WITH MORPHINE 2MG FOR WOUND CARE PHOTOS PER REQUEST.
--- NOTE | 2020-06-23 11:54 | NUR ---
PT NOW RETURNS TO DESK FROM NUCELAR MED SCAN. NO VOICED COMPLAINTS.
--- NOTE | 2020-06-23 12:09 | NUR ---
WORK ORDER PLACED FOR TV/. ANOTHER WARM BLANKET PROVIDED PER REQUEST. UNABLE TO INCREASE HEAT IN ROOM. VITALS STABLE AND WITHIN NORMAL LIMITS. OXYGEN NOW IN PLACE AT PT REQUEST FOR COMFORT. POX 99% ON 3L (HAD BEEN 95% ON ROOM AIR)
--- NOTE | 2020-06-23 12:39 | NUR ---
BSBS IS 262. PT STATES HE WILL DRINK HIS COFFEE BUT NOT EAT ANY FOOD FOR LUNCH AND HE IS ALSO REFUSING HIS 1300 INSULIN.
--- NOTE | 2020-06-23 13:49 | NUR ---
PT NOW PROVIDED MORPHINE DOSE AT HIS REQUEST. POX DROPS TO 89% ON ROOM AIR AFTER HE REMOVED HIS OXYGEN TUBING A SHORT TIME AGO, OXYGEN REAPPLIED, POX TO 99% AGAIN. PT'S NUCLEAR MED SCAN NOW RETURNS NEGATIVE, PT ASKS TO BE DISCHARGED HOME WITH A PAIN MED FOR LEGS AND OXYGEN. I DID INFORM PT'S AUNT OF THIS REQUEST, SHE REUESTS THAT PT REMAIN AT THE HOSPITAL AND, IN ADDITION, NOT BE GIVEN MORPHINE DOSING EVERY FOUR HOURS SHE BELIEBVES NOW THAT THIS IS LIKELY THE REASON FOR HIS LOW POX WHICH CAUSED HER TO SEND HIM IN TO THE E.D. IN THE FIRST PLACE. SHE ASKS FOR A MILDER PAIN MED ON EVENTUAL DISCHARGE SUCH "PERCOCET". WILL UPDATE PT'S
--- NOTE | 2020-06-23 17:10 | NUR ---
A 35, admitted to 5E, under the services of WALT Madison DO with a diagnosis of SOB, ELEVATED D-DIMER,HYPOXIA, ANEMIA. Chief complaint is SOB. Patient arrived via stretcher from ER. Monitor applied. Initial assessment completed. Vital signs taken and recorded. WALT MADISON DO notified of admission to the unit. Orders received. See assessment for past medical history, medications and allergies. Patient and/or family oriented to unit. [facility] visitation policy reviewed. Clothing/patient valuable form completed. RENZO ROLLINS
--- NOTE | 2020-06-23 21:03 | NUR ---
PATIENT MEDICATED WITH MORPHINE FOR COMPLAINTS OF FOOT PAIN. WILL MONITOR FOR EFFECTIVENESS. CALL LIGHT IN REACH.
--- NOTE | 2020-06-23 21:40 | NUR ---
MORPHINE EFFECTIVE. PATIENT RESTING IN BED TALKING ON PHONE. NO SIGNS OR SYMPTOMS OF DISTRESS NOTED.
[2020-06-24] VITALS: BP 112/73
--- NOTE | 2020-06-24 03:03 | NUR ---
MEDICATED WITH MORPHINE FOR COMPLAINTS OF LEG AND FOOT PAIN. WILL CONTINUE TO MONITOR.
--- NOTE | 2020-06-24 03:26 | NUR ---
MEDICATED WITH MORPHINE FOR COMPLAINTS OF LEG AND FOOT PAIN. WILL CONTINUE TO MONITOR.
[2020-06-24 07:05] LABS: BUN 31 mg/dl (7-24); CHLORIDE 115 mmol/L (98-107); POTASSIUM 4.8 mmol/L (3.5-5.1); SODIUM 144 mmol/L (136-145)
[2020-06-24 07:15] LABS: BASO % 0.2 % (0.0-1.0); EOS # 0.4 10*3/uL (0.0-0.4); EOS % 6.3 % (1.0-4.0); HEMATOCRIT 23.3 % (42.0-52.0); LYMPH # 1.2 10*3/uL (1.3-4.4); LYMPH % 19.8 % (27.0-41.0); MEAN CORPUSCULAR HGB 28.1 pg (27.0-31.0); MEAN CORPUSCULAR HGB CONC 32.2 g/dl (33.0-37.0); MEAN PLATELET VOLUME 10.3 fl (9.6-12.3); MONO # 0.7 10*3/uL (0.1-1.0); MONO % 11.9 % (3.0-9.0); NEUT # 3.7 10*3/uL (2.3-7.9); NEUT % 60.8 % (47.0-73.0); NUCLEATED RED BLOOD CELL 0.3 % (0.0-0.0); RED BLOOD COUNT 2.67 10*6/uL (4.50-5.90); RED CELL DISTRI WIDTH 15.3 % (0-14.5); WHITE BLOOD COUNT 6.1 10*3/uL (4.8-10.8)
[2020-06-24 07:16] LABS: MEAN CELL VOLUME 87.3 fl (80.0-94.0); PLATELET COUNT AUTOMATED 277 10*3/uL (130-400)
[2020-06-24 08:00] VITALS: BP 112/80; BP 140/76
--- NOTE | 2020-06-24 09:00 | NUR ---
Tumbler Dyeing Machine Operator in to talk to patient. Patient states lives at home with aunt and other family. There are no steps in the home. Physician: dorota elizabeth Pharmacy: [facility] [place] [facility]: [facility] Patient's level of ADLs: BEDFAST Patient has working utilities: all working DME: hospital bed, wheelchair Follow-up physician's appointment after d/c: will be made by hospitalist nurse director upon discharge Does patient want to access PORTAL?: no Discharge plan discussed with patient, he states he lives at home with his aunt who is also his caregiver, and other family members. he requires assistance with bathing and transfers due to his paraplegia. he uses a wheelchair for ambulation and has a hospital bed. he currently has [facility]. he states he will return home when discharged and will continue with [facility]. case management will notify [facility] when patient is discharged. ROD PRECIADO
--- NOTE | 2020-06-24 09:48 | NUR ---
PT REQUESTED AND RECIEVED PRN MORPHINE FOR LEG PAIN RATED AT A 8. WILL MONITOR FOR EFFECTIVNESS.
--- NOTE | 2020-06-24 10:40 | NUR ---
PT STATES MORPHINE EFFECTIVE.
[2020-06-24] MEDS ORDERED: XARE15TA PO ×2 (11:32)
[2020-06-24] MEDS ORDERED: XARELTO20 M1 PO (11:33)
--- NOTE | 2020-06-24 11:58 | NUR ---
PT STATES HE IS HAVING LEG PAIN. ONE TIME DOSE OF DILAUDID ADMINISTERED AT THIS TIME. PT'S BLOOD GLUCOSE IS 45. D50 ADMINISTERED AT THIS TIME. ORANGE JUICE ALSO PROVIDED. WILL MONITOR.
[2020-06-24 12:00] VITALS: BP 120/75
--- NOTE | 2020-06-24 12:30 | NUR ---
PT STATES DILAUDID WAS EFFECTIVE. BLOOD SUGAR 141 ON RECHECK.
--- NOTE | 2020-06-24 15:02 | NUR ---
case management faxed resume order to [facility] and notified them that patient is discharged to home today
--- NOTE | 2020-06-24 15:08 | NUR ---
CLINICAL DOCUMENTATION MANAGER NOTIFIED OF PATIENT DISCHARGE. CLINICAL DOCUMENTATION MANAGER ARRANGED FOR A 5PM TRANSPORTATION VIA LIFE TEAM. ONEIL SPOKE WITH [facility] PATIENTS INSURANCE TERRITORY MANAGER SHE IS AWARE.
[2020-06-24 16:00] VITALS: BP 106/75
--- NOTE | 2020-06-24 16:45 | NUR ---
REFUSED DISCHARGE WOUND PHOTOS.
--- NOTE | 2020-06-24 16:54 | NUR ---
Discharge instructions reviewed with patient/family. Patient receptive and verbalizes understanding. Follow-up care arranged. Written instructions given to patient/family. MAGDY DALLAS
--- NOTE | 2020-06-24 16:55 | NUR ---
PT TRANSPORTED HOME VIA AMBULANCE.
== END 2020-06-24 16:55 | disposition home or self-care (01) ==
LOC: ED 00:57 → EDHOLD 04:19 → 5E 04:19 → EDHOLD 04:19 → 5E 16:13
PROVIDERS: Emergency Medicine; Internal Medicine; ADMIT Internal Medicine; ATTEND Internal Medicine
DX: R09.89 Other specified symptoms and signs involving the circulatory and respiratory systems (principal); R79.89 Other specified abnormal findings of blood chemistry; R00.0 Tachycardia, unspecified; R09.02 Hypoxemia; R06.02 Shortness of breath; E87.8 Other disorders of electrolyte and fluid balance, not elsewhere classified; R79.9 Abnormal finding of blood chemistry, unspecified; E83.41 Hypermagnesemia; R74.8 Abnormal levels of other serum enzymes; E11.65 Type 2 diabetes mellitus with hyperglycemia; E11.39 Type 2 diabetes mellitus with other diabetic ophthalmic complication; G89.29 Other chronic pain; E43 Unspecified severe protein-calorie malnutrition; G82.20 Paraplegia, unspecified; D64.9 Anemia, unspecified; E55.9 Vitamin D deficiency, unspecified; E11.42 Type 2 diabetes mellitus with diabetic polyneuropathy

== ENCOUNTER 2020-06-27 17:09 | Inpatient (IN) | payer MEDICAID ==
[2020-06-27] VITALS (8 sets, daily range): BP systolic 119–140; BP diastolic 51–87
[~2020-06-27] VITALS: Ht 149.9 cm; Wt 61.7 kg
[~2020-06-27 17:09] MED LIST changes: +HUMALOG100 UNIT/2 SC; +XARE15TA PO; +XARELTO20 M1 PO
--- NOTE | 2020-06-27 17:43 | NUR ---
PATIENT ARRIVES ALERT. PALE WITH FEVER. REPORTS SCROTAL PAIN. HAS 3+ PITTING EDEMA IN UPPER LEGS INTO SCROTAL AREA.
[2020-06-27 18:20] LABS: MEAN CELL VOLUME 88.7 fl (80.0-94.0); MEAN CORPUSCULAR HGB 27.4 pg (27.0-31.0); MEAN CORPUSCULAR HGB CONC 30.9 g/dl (33.0-37.0); MEAN PLATELET VOLUME 9.3 fl (9.6-12.3); PLATELET COUNT AUTOMATED 378 10*3/uL (130-400); RED BLOOD COUNT 2.48 10*6/uL (4.50-5.90); RED CELL DISTRI WIDTH 14.9 % (0-14.5)
[2020-06-27 18:33] LABS: ACT PARTIAL THROMBO TIME 46.7 SECONDS (20.0-32.1); INTERNATIONAL NORM RATIO 1.6 (2.0-3.5)
[2020-06-27 18:48] LABS: TOTAL CELLS COUNTED 100 #CELLS
[2020-06-27 18:50] LABS: MICROCYTOSIS SLIGHT; PLATELET SUFFICIENCY NORMAL (NORMAL)
[2020-06-27 18:57] LABS: BUN 27 mg/dl (7-24); CREATININE 0.89 mg/dL (0.70-1.30)
[2020-06-27 18:58] LABS: CHLORIDE 108 mmol/L (98-107); POTASSIUM 4.7 mmol/L (3.5-5.1); SODIUM 136 mmol/L (136-145)
[2020-06-27 18:59] LABS: ALBUMIN 2.3 gm/dl (3.1-4.5); ALKALINE PHOSPHATASE 121 U/L (45-117); CPK 23 U/L (39-308); LDH 173 U/L (87-241); SGOT/AST 6 IU/L (3-35); SGPT/ALT 10 U/L (12-78); TOTAL PROTEIN 6.1 gm/dL (6.4-8.2); TROPONIN I < 0.015 ng/ml (<0.045)
--- NOTE | 2020-06-27 19:10 | NUR ---
Report received from Poppy Zimmer RN.
--- NOTE | 2020-06-27 19:30 | NUR ---
Pt laying in bed AAOx4, Pt c/o pain and requests to see Dr Santos for prn pain meds. RN informed Dr Santos at nurses station and informed by pt is admitted to the floor and has a physican who accepted care already and cant order any further orders now. RN informed pt of above and pt v/u.
--- NOTE | 2020-06-27 20:40 | NUR ---
1st unit of PRBC started at this time by SAQIB Hillman
--- NOTE | 2020-06-27 21:19 | NUR ---
REPORT GIVEN TO SAQIB SANTIAGO
--- NOTE | 2020-06-27 21:20 | NUR ---
PT LAYING IN BED ON PHONE. NAD. NO NEEDS OR CONCERNS VOICED. PT JUST ASKS WHEN HE IS BEING MOVED TO HIS ROOM. PT EDUCATED ON AWAITING CANDIES, RN TO BRING HIM TO FLOOR. PT V/U.
--- NOTE | 2020-06-27 22:00 | NUR ---
PT TRANSFERRED VIA BED TO ROOM 512 WITH BLOOD TRANSFUSION IN PROGRESS
--- NOTE | 2020-06-27 23:44 | NUR ---
A 35, admitted to 5E, under the services of SUMMER Richardson DO with a diagnosis of ANEMIA. Chief complaint is SCROTAL PAIN. Patient arrived via stretcher from ER. Monitor applied. Initial assessment completed. Vital signs taken and recorded. SUMMER RICHARDSON DO notified of admission to the unit. Orders received. See assessment for past medical history, medications and allergies. Patient and/or family oriented to unit. visitation policy reviewed. Clothing/patient valuable form completed. CLAIRE LEE
--- NOTE | 2020-06-27 23:45 | NUR ---
Post transfusion vitals documented in vital sign intervention
[2020-06-28] VITALS: BP 145/86
[2020-06-28 01:45] LABS: BASO % 0.2 % (0.0-1.0); EOS # 0.3 10*3/uL (0.0-0.4); EOS % 3.3 % (1.0-4.0); HEMATOCRIT 27.5 % (42.0-52.0); LYMPH # 1.2 10*3/uL (1.3-4.4); MEAN CELL VOLUME 86.8 fl (80.0-94.0); MEAN CORPUSCULAR HGB 27.1 pg (27.0-31.0); MEAN CORPUSCULAR HGB CONC 31.3 g/dl (33.0-37.0); MEAN PLATELET VOLUME 8.8 fl (9.6-12.3); MONO # 0.7 10*3/uL (0.1-1.0); MONO % 7.8 % (3.0-9.0); NEUT % 74.8 % (47.0-73.0); PLATELET COUNT AUTOMATED 379 10*3/uL (130-400); RED BLOOD COUNT 3.17 10*6/uL (4.50-5.90); RED CELL DISTRI WIDTH 14.7 % (0-14.5); WHITE BLOOD COUNT 9.3 10*3/uL (4.8-10.8)
--- NOTE | 2020-06-28 02:06 | NUR ---
Spoke with Dr. Nicholas he stated to keep to not give the second unit of blood at this time but to keep the second unit of blood on hold.
[2020-06-28 04:00] VITALS: BP 138/83
[2020-06-28 06:44] LABS: BASO % 0.2 % (0.0-1.0); EOS # 0.2 10*3/uL (0.0-0.4); EOS % 2.5 % (1.0-4.0); HEMATOCRIT 27.2 % (42.0-52.0); LYMPH # 1.2 10*3/uL (1.3-4.4); MEAN CELL VOLUME 87.2 fl (80.0-94.0); MEAN CORPUSCULAR HGB 27.6 pg (27.0-31.0); MEAN CORPUSCULAR HGB CONC 31.6 g/dl (33.0-37.0); MEAN PLATELET VOLUME 9.2 fl (9.6-12.3); MONO # 0.9 10*3/uL (0.1-1.0); MONO % 8.9 % (3.0-9.0); NEUT # 7.1 10*3/uL (2.3-7.9); NEUT % 74.5 % (47.0-73.0); PLATELET COUNT AUTOMATED 393 10*3/uL (130-400); RED BLOOD COUNT 3.12 10*6/uL (4.50-5.90); RED CELL DISTRI WIDTH 14.9 % (0-14.5); WHITE BLOOD COUNT 9.5 10*3/uL (4.8-10.8)
[2020-06-28 07:00] LABS: BILIRUBIN Negative (Negative); BLOOD 1+ (Negative); CLARITY Cloudy (Clear); COLOR Yellow (Yellow); GLUCOSE Negative (Negative); KETONE Negative (Negative); LEUKO ESTERASE Trace (Negative); NITRITE Negative (Negative); PH 5.5 (4.5-8.0); SPECIFIC GRAVITY 1.015 (1.001-1.030)
[2020-06-28 07:02] LABS: ALBUMIN 2.2 gm/dl (3.1-4.5); ALKALINE PHOSPHATASE 113 U/L (45-117); BUN 21 mg/dl (7-24); CHLORIDE 111 mmol/L (98-107); CREATININE 0.69 mg/dL (0.70-1.30); POTASSIUM 4.5 mmol/L (3.5-5.1); SGOT/AST 7 IU/L (3-35); SGPT/ALT 8 U/L (12-78); SODIUM 139 mmol/L (136-145); TOTAL PROTEIN 6.2 gm/dL (6.4-8.2)
--- NOTE | 2020-06-28 07:03 | NUR ---
Dr. Kumar notified of consult.
[2020-06-28 07:08] LABS: BACTERIA 4+
--- NOTE | 2020-06-28 07:27 | NUR ---
Patient resting in bed supine. Patient reported pain. Blood sugar taken. Safety maintained.
[2020-06-28 08:00] VITALS: BP 104/71
--- NOTE | 2020-06-28 10:44 | NUR ---
Senior Site Manager in to talk to patient. Patient states lives at home with aunt and family. There are 0 steps in the home. Physician: Justin Sears Pharmacy: [facility] Home health services: [facility] Patient's level of ADLs: BEDFAST Patient has working utilities: all working DME: hospital bed/wheel chair Follow-up physician's appointment after d/c: Does patient want to access PORTAL?: no Discharge plan Discharge plan discussed with patient; He will be discharged to home with his aunt/family who are his caregivers. He will also resume his OV. Patient is bedfast and requires assistance with bathing and transfers due to being blind and paraplegia. He uses his wheelchair to get around and has a hospital bed. Patient will return home with [facility]/Caregivers upon discharge. Ambulance transport required to go home. . JESS CORONEL
[2020-06-28 12:00] VITALS: BP 113/73
[2020-06-28 16:00] VITALS: BP 105/66
[2020-06-28 20:00] VITALS: BP 111/67
[2020-06-29] VITALS: BP 112/75
[2020-06-29 04:00] VITALS: BP 133/73
[2020-06-29 06:53] LABS: BASO % 0.2 % (0.0-1.0); EOS # 0.3 10*3/uL (0.0-0.4); EOS % 3.2 % (1.0-4.0); HEMATOCRIT 26.4 % (42.0-52.0); LYMPH # 1.3 10*3/uL (1.3-4.4); LYMPH % 13.5 % (27.0-41.0); MEAN CELL VOLUME 89.2 fl (80.0-94.0); MEAN CORPUSCULAR HGB CONC 30.3 g/dl (33.0-37.0); MEAN PLATELET VOLUME 9.1 fl (9.6-12.3); MONO # 0.8 10*3/uL (0.1-1.0); MONO % 7.9 % (3.0-9.0); NEUT # 7.4 10*3/uL (2.3-7.9); NEUT % 74.5 % (47.0-73.0); PLATELET COUNT AUTOMATED 362 10*3/uL (130-400); RED BLOOD COUNT 2.96 10*6/uL (4.50-5.90); WHITE BLOOD COUNT 9.9 10*3/uL (4.8-10.8)
[2020-06-29 07:06] LABS: ALKALINE PHOSPHATASE 113 U/L (45-117); BUN 22 mg/dl (7-24); CHLORIDE 107 mmol/L (98-107); CREATININE 0.73 mg/dL (0.70-1.30); POTASSIUM 4.1 mmol/L (3.5-5.1); SGOT/AST 10 IU/L (3-35); SGPT/ALT 12 U/L (12-78); SODIUM 136 mmol/L (136-145); TOTAL PROTEIN 5.9 gm/dL (6.4-8.2)
--- NOTE | 2020-06-29 07:41 | NUR ---
Report received. Patient resting in bed. Pain notes 6/10 in lower back. Pain medication will be provided. Safety maintained.
[2020-06-29 08:00] VITALS: BP 130/68
--- NOTE | 2020-06-29 10:57 | NUR ---
OYSTER SORTER FAXED RESUMPTION ORDER TO [facility]. OYSTER SORTER WILL NOTIFY THEM OF WHEN PATIENT IS DISCHARGING ONCE HE IS MEDICALLY STABLE.
[2020-06-29 12:00] VITALS: BP 130/56
--- NOTE | 2020-06-29 14:30 | NUR ---
DRESSINGS CHANGED TO ALL WOUNDS PER PHYSICIAN ORDERS.
[2020-06-29 16:00] VITALS: BP 135/52
[2020-06-29 20:00] VITALS: BP 124/73
[2020-06-30] VITALS (10 sets, daily range): BP systolic 102–134; BP diastolic 60–81
[2020-06-30 07:07] LABS: BASO % 0.1 % (0.0-1.0); EOS # 0.5 10*3/uL (0.0-0.4); EOS % 4.2 % (1.0-4.0); HEMATOCRIT 25.7 % (42.0-52.0); LYMPH # 1.6 10*3/uL (1.3-4.4); LYMPH % 15.3 % (27.0-41.0); MEAN CELL VOLUME 87.1 fl (80.0-94.0); MEAN CORPUSCULAR HGB 26.8 pg (27.0-31.0); MEAN CORPUSCULAR HGB CONC 30.7 g/dl (33.0-37.0); MEAN PLATELET VOLUME 8.7 fl (9.6-12.3); MONO # 0.9 10*3/uL (0.1-1.0); MONO % 8.1 % (3.0-9.0); NEUT # 7.6 10*3/uL (2.3-7.9); NEUT % 71.3 % (47.0-73.0); PLATELET COUNT AUTOMATED 341 10*3/uL (130-400); RED BLOOD COUNT 2.95 10*6/uL (4.50-5.90); RED CELL DISTRI WIDTH 14.7 % (0-14.5); WHITE BLOOD COUNT 10.6 10*3/uL (4.8-10.8)
[2020-06-30 07:21] LABS: BUN 21 mg/dl (7-24); CHLORIDE 106 mmol/L (98-107); CREATININE 0.65 mg/dL (0.70-1.30); POTASSIUM 3.8 mmol/L (3.5-5.1); SODIUM 138 mmol/L (136-145)
--- NOTE | 2020-06-30 09:00 | NUR ---
patient will be returning home when discharged with continuation of [facility], he is scheduled for surgery today, case managment will follow
--- NOTE | 2020-06-30 10:54 | NUR ---
'S OFFICE CALLED REGARDING CONSULT.
--- NOTE | 2020-06-30 11:39 | NUR ---
BSG 225 AT THIS TIME. PT REFUSING INSULIN COVERAGE CURRENTLY. WILL CONTINUE TO MONITOR.
--- NOTE | 2020-06-30 14:01 | NUR ---
PT REQUESTED IV MORPHINE PER PRN ORDER FOR C/O RIGHT LEG PAIN. SURGICAL DRESSING D/I. RATES PAIN 03/16. WILL MONITOR EFFECTIVENESS. CALL LIGHT WITHIN REACH.
--- NOTE | 2020-06-30 16:33 | NUR ---
IN TO SEE PATIENT REGARDING CONSULT.
--- NOTE | 2020-06-30 17:08 | NUR ---
IV DILAUDID X1 DOSE GIVEN SLOWLY PER ORDER FOR C/O RIGHT LEG PAIN. RATES PAIN 04/16. WILL MONITOR EFFECTIVENESS.
--- NOTE | 2020-06-30 18:08 | NUR ---
DILAUDID RELIEVING PAIN PER PT. WILL CONTINUE TO MONITOR.
--- NOTE | 2020-06-30 23:13 | NUR ---
IV MORPHINE GIVEN FOR C/O PAIN IN R KNEE AND SCROTUM RATED 10/10. WILL MONITOR EFFECTIVENESS. CALL LIGHT IN REACH.
[2020-07-01] VITALS: BP 124/72
--- NOTE | 2020-07-01 00:05 | NUR ---
EARLIER MORPHINE HELPED PER PT. WILL MONITOR. CALL LIGHT IN REACH.
--- NOTE | 2020-07-01 04:31 | NUR ---
IV MORPHINE GIVEN PER PRN ORDER FOR C/O PAIN IN R KNEE/SCROTUM RATED 10/10. WILL MONITOR EFFECTIVENESS. CALL LIGHT IN REACH.
--- NOTE | 2020-07-01 05:30 | NUR ---
EARLIER MORPHINE APPEARS EFFECTIVE. PT ASLEEP.
[2020-07-01 07:02] LABS: BASO % 0.2 % (0.0-1.0); EOS # 0.2 10*3/uL (0.0-0.4); EOS % 1.9 % (1.0-4.0); HEMATOCRIT 25.1 % (42.0-52.0); LYMPH # 1.1 10*3/uL (1.3-4.4); LYMPH % 8.6 % (27.0-41.0); MEAN CELL VOLUME 88.7 fl (80.0-94.0); MEAN CORPUSCULAR HGB 26.9 pg (27.0-31.0); MEAN CORPUSCULAR HGB CONC 30.3 g/dl (33.0-37.0); MEAN PLATELET VOLUME 9.3 fl (9.6-12.3); MONO # 1.1 10*3/uL (0.1-1.0); MONO % 8.7 % (3.0-9.0); NEUT # 9.9 10*3/uL (2.3-7.9); PLATELET COUNT AUTOMATED 365 10*3/uL (130-400); RED BLOOD COUNT 2.83 10*6/uL (4.50-5.90); WHITE BLOOD COUNT 12.4 10*3/uL (4.8-10.8)
[2020-07-01 07:21] LABS: BUN 20 mg/dl (7-24); CHLORIDE 108 mmol/L (98-107); CREATININE 0.73 mg/dL (0.70-1.30); POTASSIUM 4.1 mmol/L (3.5-5.1); SODIUM 139 mmol/L (136-145)
[2020-07-01 08:00] VITALS: BP 126/68
--- NOTE | 2020-07-01 08:40 | NUR ---
PT GIVEN MORPHINE DUE TO C/O RIGHT KNEE AND SCROTUM PAIN. WILL MONITOR FOR EFFECTIVENESS.
--- NOTE | 2020-07-01 09:00 | NUR ---
case management visits with patient, he will return home with family when discaharged, will resume OVHH, no other needs at this time
--- NOTE | 2020-07-01 09:40 | NUR ---
PT STATES THAT MORPHINE IS EFFECTIVE.
--- NOTE | 2020-07-01 10:25 | NUR ---
NOTIFIED DR GARNER OFFICE THAT PER CARDIOLOGY, A BRAD IS RECOMMENDED RATHER THAN AN ECHO TO RULE OUT ENDOCARDITIS.
[2020-07-01 12:00] VITALS: BP 117/69
--- NOTE | 2020-07-01 12:43 | NUR ---
PT REQUESTS TO HAVE 6 UNITS OF INSULIN INSTEAD OF 12 UNITS OF INSULIN PER S/S FOR BLOOD SUGAR OF 379. PT STATES THAT HIS BLOOD SUGAR DROPS EASILY. WILL CONTINUE TO MONITOR.
[2020-07-01 16:00] VITALS: BP 119/70
--- NOTE | 2020-07-01 19:37 | NUR ---
PATIENT RESTING IN BED WITH NO NEEDS MADE. REQUESTED MORPHINE, MADE AWARE IT IS NOT DUE FOR ANOTHER HOUR. VERBALIZED UNDERSTANDING. BED IN LOWEST POSITION, CALL LIGHT IN REACH, BED ALARM ON
[2020-07-01 20:00] VITALS: BP 124/70
--- NOTE | 2020-07-01 20:45 | NUR ---
MEDICATED WITH PRN MORPHINE FOR C/O SCROTAL PAIN. WILL MONITOR
--- NOTE | 2020-07-01 21:45 | NUR ---
MEDICATION EFFECTIVE PER PATIENT
[2020-07-02] VITALS: BP 117/68
--- NOTE | 2020-07-02 00:51 | NUR ---
MEDICATED WITH PRN MORPHINE FOR C/O SACRAL PAIN. WILL MONITOR
--- NOTE | 2020-07-02 01:51 | NUR ---
MEDICATION EFFECTIVE PER PATIENT
--- NOTE | 2020-07-02 04:53 | NUR ---
MEDICATED WITH PRN MORPHINE FOR C/O SCROTAL PAIN. WILL MONITOR
--- NOTE | 2020-07-02 05:53 | NUR ---
MEDICATION EFFECTIVE PER PATIENT
--- NOTE | 2020-07-02 06:39 | NUR ---
PATIENT REQUESTING TO HAVE INSULIN GIVEN FOR BLOOD SUGAR COVERAGE AFTER HE EATS BREAKFAST.
[2020-07-02 06:48] LABS: BASO % 0.2 % (0.0-1.0); EOS # 0.3 10*3/uL (0.0-0.4); EOS % 2.7 % (1.0-4.0); HEMATOCRIT 25.1 % (42.0-52.0); LYMPH # 1.1 10*3/uL (1.3-4.4); MEAN CELL VOLUME 87.5 fl (80.0-94.0); MEAN CORPUSCULAR HGB 26.8 pg (27.0-31.0); MEAN CORPUSCULAR HGB CONC 30.7 g/dl (33.0-37.0); MEAN PLATELET VOLUME 9.2 fl (9.6-12.3); MONO % 8.7 % (3.0-9.0); NEUT # 8.8 10*3/uL (2.3-7.9); NEUT % 77.5 % (47.0-73.0); PLATELET COUNT AUTOMATED 365 10*3/uL (130-400); RED BLOOD COUNT 2.87 10*6/uL (4.50-5.90); WHITE BLOOD COUNT 11.3 10*3/uL (4.8-10.8)
[2020-07-02 07:05] LABS: BUN 24 mg/dl (7-24); CHLORIDE 104 mmol/L (98-107); CREATININE 0.96 mg/dL (0.70-1.30); POTASSIUM 4.1 mmol/L (3.5-5.1); SODIUM 134 mmol/L (136-145)
[2020-07-02 08:00] VITALS: BP 123/71
--- NOTE | 2020-07-02 08:59 | NUR ---
MORPHINE 2 MG GIVEN FOR C/O SCROTAL PAIN, 04/16.
--- NOTE | 2020-07-02 10:12 | NUR ---
EDUCATION PROVIDED REGARDING REPOSITIONING AND REFUSING INSULIN.PT THEN REPOSITIONED FOR COMFORT.PT TOLERATED WELL. STABLE AT THIS TIME. RESPS EASY ON 2LNC. WILL CONTINUE TO MONITOR.CALL LIGHT IN REACH.
[2020-07-02 12:00] VITALS: BP 120/70
--- NOTE | 2020-07-02 12:45 | NUR ---
MORPHINE 2 MG GIVEN FOR C/O SCROTAL PAIN, 04/16.
--- NOTE | 2020-07-02 13:39 | NUR ---
DR BEAR ROUNDED AND SEEN PT.ORDERS RECIEVED.
[2020-07-02 16:00] VITALS: BP 119/74
--- NOTE | 2020-07-02 17:45 | NUR ---
UROSTOMY CHANGE COMPLETED TO RLQ.PT TOLERATED WELL. STOMA BEEFY RED. VOICES NO OTHER NEEDS AT THIS TIME.CALL LIGHT IN REACH.
[2020-07-02 20:00] VITALS: BP 100/61
--- NOTE | 2020-07-02 21:34 | NUR ---
PT SEEN AND ASSESSED. PT REQUEST PAIN MEDICATION FOR GENERALIZD C/O PAIN. PT BLOOD SUGAR WAS 158 AND COVG WAS PROVIDED FOR THIS. LEFT CHEST PORT FLUSHED, DRESSING DRY AND INTACT, PORT HAS BLOOD RETURN. REVIEWED NPO STATUS FOR BRAD IN AM. PT VERBALIZES UNDERSTANDING OF THIS. WILL REASSESS PAIN.
[2020-07-03] VITALS (9 sets, daily range): BP systolic 71–110; BP diastolic 28–70
[2020-07-03 06:15] LABS: BUN 25 mg/dl (7-24); CHLORIDE 108 mmol/L (98-107); CREATININE 0.97 mg/dL (0.70-1.30); POTASSIUM 3.8 mmol/L (3.5-5.1); SODIUM 136 mmol/L (136-145)
[2020-07-03 06:34] LABS: BASO % 0.2 % (0.0-1.0); EOS # 0.4 10*3/uL (0.0-0.4); EOS % 3.2 % (1.0-4.0); HEMATOCRIT 27.8 % (42.0-52.0); LYMPH # 1.5 10*3/uL (1.3-4.4); LYMPH % 12.8 % (27.0-41.0); MEAN CORPUSCULAR HGB 26.9 pg (27.0-31.0); MEAN CORPUSCULAR HGB CONC 29.9 g/dl (33.0-37.0); MEAN PLATELET VOLUME 9.1 fl (9.6-12.3); MONO % 8.6 % (3.0-9.0); NEUT # 8.9 10*3/uL (2.3-7.9); NEUT % 74.4 % (47.0-73.0); PLATELET COUNT AUTOMATED 378 10*3/uL (130-400); RED BLOOD COUNT 3.09 10*6/uL (4.50-5.90); RED CELL DISTRI WIDTH 14.9 % (0-14.5)
--- NOTE | 2020-07-03 11:13 | NUR ---
PT REQUEST PRN PAIN MEDICATION FOR C/O GENERALIZED PAIN.
--- NOTE | 2020-07-03 12:35 | NUR ---
LEFT MESSAGE WITH DR HARKINS'S ANSWERING SERVICE.
--- NOTE | 2020-07-03 12:47 | NUR ---
DR GARNER CALLED. STATED SHE WILL TALK TO DR MACHUCA ABOUT THE BRAD AND DECIDE IF THEY WANT CARDIOTHORASIC INVOLED. PATIENT IS NOT TO BE DISCHARGED UNTIL SHE STATES IT IS OK.
--- NOTE | 2020-07-03 12:58 | NUR ---
SPOKE WITH DR HARKINS. SHE WANTS SURGERY CONSULTED FOR A MEDIPORT REMOVAL. ALSO, NOTIFIED DR PASTOR'S TEAM. WILL CALL SURGERY.
--- NOTE | 2020-07-03 13:01 | NUR ---
CONSULT CALLED TO DR PRAKASH. HE STATED HE WILL STOP IN AND SEE THE PATIENT.
--- NOTE | 2020-07-03 16:02 | NUR ---
MEDICATED WITH MORPHINE PER ORDER AND REQUEST PAIN ALL OVER ESPECIALLY SCROTUM 10 OUT OF 10.
--- NOTE | 2020-07-03 21:11 | NUR ---
MORPHINE GIVEN PER PT REQUEST PER PRN ORDER FOR C/O PAIN TO SCROTUM. WILL MONITOR PT RESPONSE.
[2020-07-04] VITALS: BP 105/67
[2020-07-04 06:18] LABS: BASO % 0.1 % (0.0-1.0); EOS # 0.4 10*3/uL (0.0-0.4); EOS % 3.7 % (1.0-4.0); HEMATOCRIT 23.5 % (42.0-52.0); LYMPH # 1.4 10*3/uL (1.3-4.4); LYMPH % 14.4 % (27.0-41.0); MEAN CORPUSCULAR HGB CONC 30.6 g/dl (33.0-37.0); MONO # 0.8 10*3/uL (0.1-1.0); MONO % 7.8 % (3.0-9.0); NEUT # 7.3 10*3/uL (2.3-7.9); NEUT % 73.1 % (47.0-73.0); PLATELET COUNT AUTOMATED 384 10*3/uL (130-400); RED BLOOD COUNT 2.67 10*6/uL (4.50-5.90)
[2020-07-04 06:33] LABS: BUN 23 mg/dl (7-24); CHLORIDE 109 mmol/L (98-107); CREATININE 0.91 mg/dL (0.70-1.30); POTASSIUM 3.7 mmol/L (3.5-5.1); SODIUM 140 mmol/L (136-145)
[2020-07-04 08:00] VITALS: BP 124/74
--- NOTE | 2020-07-04 09:29 | NUR ---
IN TO SEE PATIENT.
--- NOTE | 2020-07-04 09:30 | NUR ---
PER , CASSIUS TO GIVE PATIENT A DIET AND WILL SPEAK WITH ID AND/OR PCP REGARDING MEDIPORT REMOVAL.
--- NOTE | 2020-07-04 09:47 | NUR ---
PT MEDICATED WITH IV MORPHINE PER PRN ORDER FOR C/O LEG AND SCROTAL PAIN. RATES PAIN 03/16. WILL MONITOR EFFECTIVENESS.
--- NOTE | 2020-07-04 10:47 | NUR ---
MORPHINE RELIEVING PAIN PER PT. WILL CONTINUE TO MONITOR.
[2020-07-04 12:00] VITALS: BP 102/70
--- NOTE | 2020-07-04 12:28 | NUR ---
BSG 295. PT AGREEABLE FOR INSULIN PER S/S BUT WANTS TO WAIT UNTIL HE ORDERS LUNCH.
--- NOTE | 2020-07-04 13:59 | NUR ---
PHARMACY CALLED REGARDING VANC TROUGH. PER PHARMACY, THEY WILL TAKE A LOOK AT IT.
--- NOTE | 2020-07-04 14:14 | NUR ---
PT MEDICATED WITH IV MORPHINE PER PRN ORDER FOR C/O LEG AND SCROTAL PAIN. RATES PAIN 03/16. WILL MONITOR EFFECTIVENESS.
--- NOTE | 2020-07-04 15:14 | NUR ---
MORPHINE RELIEVING PAIN PER PT. WILL CONTINUE TO MONITOR.
[2020-07-04 16:00] VITALS: BP 112/64
--- NOTE | 2020-07-04 16:44 | NUR ---
BSG 220. AGREEABLE TO SLIDING SCALE COVERAGE, AWAITING FOR DINNER TRAY.
--- NOTE | 2020-07-04 18:27 | NUR ---
MORPHINE GIVEN PER PRN ORDER FOR C/O LEG AND SCROTAL PAIN. RATES PAIN 10/10. WILL MONITOR EFFECTIVENESS.
[2020-07-04 20:00] VITALS: BP 102/67
--- NOTE | 2020-07-04 22:15 | NUR ---
NOTIFIED DR. ROSALES THAT PATIENTS MORPHINE DROPPED OFF OCT HE STATED IT WAS OK TO READD IT
--- NOTE | 2020-07-04 22:28 | NUR ---
PRN MORPHINE GIVEN FOR PT COMPLAINTS OF 10/10 SCROTUM AND RIGHT KNEE PAIN. CALL LIGHT WITHIN REACH, WILL MONITOR
--- NOTE | 2020-07-04 23:17 | NUR ---
PRN MEDICATION APPEARS EFFECTIVE, PT SLEEPING
[2020-07-05] VITALS: BP 122/74
--- NOTE | 2020-07-05 02:26 | NUR ---
PRN MORPHINE GIVEN FOR PT COMPLAINTS OF 10/10 SCROTUM AND RIGHT KNEE PAIN. CALL LIGHT WITHIN REACH, WILL MONITOR.
--- NOTE | 2020-07-05 02:50 | NUR ---
24 HR chart check completed.
--- NOTE | 2020-07-05 03:15 | NUR ---
PRN MORPHINE SOMEWHAT EFFECTIVE PER PT
--- NOTE | 2020-07-05 06:37 | NUR ---
PRN MORPHINE GIVEN FOR PT COMPLAINTS OF PAIN IN THE RIGHT KNEE/ SCROTUM RATING IT 9/10. CALL LIGHT WITHIN REACH, WILL MONITOR
--- NOTE | 2020-07-05 07:30 | NUR ---
PRN MORPHINE SOMEWHAT EFFECTIVE PER PT
[2020-07-05 07:35] LABS: BASO % 0.1 % (0.0-1.0); EOS # 0.3 10*3/uL (0.0-0.4); EOS % 4.1 % (1.0-4.0); HEMATOCRIT 23.4 % (42.0-52.0); LYMPH # 1.3 10*3/uL (1.3-4.4); LYMPH % 15.8 % (27.0-41.0); MEAN CELL VOLUME 88.6 fl (80.0-94.0); MEAN CORPUSCULAR HGB 26.9 pg (27.0-31.0); MEAN CORPUSCULAR HGB CONC 30.3 g/dl (33.0-37.0); MONO # 0.4 10*3/uL (0.1-1.0); MONO % 5.2 % (3.0-9.0); NEUT # 5.9 10*3/uL (2.3-7.9); NEUT % 73.9 % (47.0-73.0); PLATELET COUNT AUTOMATED 414 10*3/uL (130-400); RED BLOOD COUNT 2.64 10*6/uL (4.50-5.90); RED CELL DISTRI WIDTH 14.6 % (0-14.5)
--- NOTE | 2020-07-05 07:44 | NUR ---
BREAKFAST TRAY ORDERED FOR PATIENT AT THIS TIME.
[2020-07-05 07:49] LABS: BUN 21 mg/dl (7-24); CHLORIDE 105 mmol/L (98-107); CREATININE 0.92 mg/dL (0.70-1.30); POTASSIUM 3.7 mmol/L (3.5-5.1); SODIUM 138 mmol/L (136-145)
[2020-07-05 08:00] VITALS: BP 127/73
--- NOTE | 2020-07-05 10:30 | NUR ---
DRESSINGS CHANGED TO MULTIPLE WOUNDS PER POLICY.
--- NOTE | 2020-07-05 10:36 | NUR ---
PT MEDICATED WITH IV MORPHINE PER PRN ORDER FOR C/O RIGHT KNEE/SCROTAL PAIN. RATES PAIN 04/16. WILL MONITOR EFFECTIVENESS.
--- NOTE | 2020-07-05 11:10 | NUR ---
BSG 212. PATIENT STATES HE WILL GET INSULIN PER S/S WHEN HE ORDERS LUNCH.
--- NOTE | 2020-07-05 11:36 | NUR ---
IV MORPHINE SOMEWHAT EFFECTIVE PER PT. WILL CONTINUE TO MONITOR.
[2020-07-05 12:00] VITALS: BP 109/67
--- NOTE | 2020-07-05 12:08 | NUR ---
BSG 212. PATIENT REFUSING INSULIN. PATIENT STATES HE WON'T BE EATING LUNCH.
--- NOTE | 2020-07-05 14:36 | NUR ---
PT MEDICATED WITH IV MORPHINE PER PRN ORDER FOR C/O RIGHT KNEE AND SCROTAL PAIN. RATES PAIN 04/16. WILL MONITOR EFFECTIVENESS.
--- NOTE | 2020-07-05 15:36 | NUR ---
MORPHINE SLIGHTLY EFFECTIVE PER PT. WILL CONTINUE TO MONITOR.
[2020-07-05 16:00] VITALS: BP 130/77
--- NOTE | 2020-07-05 18:29 | NUR ---
PT REQUESTED IV MORPHINE PER PRN ORDER FOR C/O RIGHT KNEE/SCROTAL PAIN. RATES PAIN 8/10. WILL MONITOR EFFECTIVENESS.
[2020-07-05 20:00] VITALS: BP 123/74
--- NOTE | 2020-07-05 21:07 | NUR ---
SPOKE WITH DR. PRAKASH AT THIS TIME. HE STATED HE SPOKE TO DR. GARNER AND THEY AGREED THAT HIS MEDIPORT NEEDS TO COME OUT AND THAT HE WOULD LIKE FOR THE PATIENT TO BE NPO AFTER MIDNIGHT FOR REMOVAL TOMORROW.
[2020-07-06] VITALS (16 sets, daily range): BP systolic 94–130; BP diastolic 55–86
--- NOTE | 2020-07-06 01:49 | NUR ---
PT STATES THAT THE GIVEN PAIN MED DECREASED HIS LEVEL OF PAIN.
--- NOTE | 2020-07-06 05:28 | NUR ---
24 HR chart check completed.
[2020-07-06 06:48] LABS: BASO % 0.2 % (0.0-1.0); EOS # 0.4 10*3/uL (0.0-0.4); EOS % 4.7 % (1.0-4.0); LYMPH # 1.8 10*3/uL (1.3-4.4); MEAN CORPUSCULAR HGB 26.7 pg (27.0-31.0); MEAN CORPUSCULAR HGB CONC 31.3 g/dl (33.0-37.0); MONO # 0.7 10*3/uL (0.1-1.0); NEUT # 5.9 10*3/uL (2.3-7.9); PLATELET COUNT AUTOMATED 454 10*3/uL (130-400); RED CELL DISTRI WIDTH 14.4 % (0-14.5); WHITE BLOOD COUNT 9.1 10*3/uL (4.8-10.8)
[2020-07-06 06:56] LABS: MEAN CELL VOLUME 85.2 fl (80.0-94.0)
[2020-07-06 07:05] LABS: BUN 18 mg/dl (7-24); CHLORIDE 107 mmol/L (98-107); CREATININE 0.68 mg/dL (0.70-1.30); POTASSIUM 3.9 mmol/L (3.5-5.1); SODIUM 140 mmol/L (136-145)
--- NOTE | 2020-07-06 10:00 | NUR ---
PT OFF OF FLOOR TO GO TO SURGERY.
--- NOTE | 2020-07-06 10:02 | NUR ---
PT STATES HE IS BILATERAL LEG PAIN RATED AT AN 8. PRN MORPHINE ADMINISTERED BEFORE PT LEFT FLOOR FOR SURGERY.
--- NOTE | 2020-07-06 10:40 | NUR ---
case management contacted patient's caregiver and aunt, Sue regarding patient's discharge plans. educated her that patient is going to need iv antibiotics as an outpatient, she stated patient has had home iv antibiotics in the past and she is familiar on how to administer them, she also stated he currently has OV and they have helped her in the past with administration of iv antibiotcs. case management will follow and notify [facility] when patient is discharged
--- NOTE | 2020-07-06 11:38 | NUR ---
PT AWAKE, ALERT AND ORIENTED UPON ENTERING ROOM. PT IS LAYING IN BED, NO S/S OF DISTRESS NOTED. NO STATED COMPLAINTS AT THIS TIME. DENIES PAIN. EDUCATION PROVIDED ON PRN PAIN MEDICATIONS. 2L NASAL CANNULA INTACT. NO SOB NOTED AT REST. BED IN LOWEST LOCKED POSITION AND CALL LIGHT WITHIN REACH. WILL CONTINUE TO MONITOR.
--- NOTE | 2020-07-06 20:44 | NUR ---
PATIENT'S BLOOD TRANSFUSION COMPLETE. PATIENT RESTING IN BED, VOICES NO COMPLAINTS AT THIS TIME. RESPIRATIONS EASY, NON LABORED. NO SIGNS OF DISTRESS. VSS. BED IN LOWEST POSITION,CALL LIGHT WITHIN REACH.WILL CONTINUE TO MONITOR.
--- NOTE | 2020-07-06 22:39 | NUR ---
PATIENT REQUESTING PAIN MEDICATION FOR C/O SCROTUM AND BLE PAIN. RATES 05/16. MEDICATED WITH MORPHINE AT THIS TIME. WILL CHECK EFFECTIVENESS.
--- NOTE | 2020-07-06 23:39 | NUR ---
PATIENT VOICES NO COMPLAINTS AT THIS TIME. MORPHINE EFFECTIVE. WILL CONTINUE TO MONITOR.
[2020-07-07] VITALS: BP 122/76
--- NOTE | 2020-07-07 02:28 | NUR ---
MEDICATED WITH PRN MORPHINE FOR CO SCROTUM PAIN. NURSE TO ASSESS EFFECTIVENESS.
--- NOTE | 2020-07-07 03:00 | NUR ---
PATIENT SLEEPING. MORPHINE SEEMS TO BE EFFECTIVE.
--- NOTE | 2020-07-07 06:24 | NUR ---
PATIENT C/O 05/16 SCROTUM PAIN. REQUESTING PAIN MEDICATION. MEDICATED WITH MORPHINE AT THIS TIME. WILL CHECK EFFECTIVENESS.
[2020-07-07 06:42] LABS: BASO % 0.3 % (0.0-1.0); EOS # 0.2 10*3/uL (0.0-0.4); EOS % 3.3 % (1.0-4.0); HEMATOCRIT 28.2 % (42.0-52.0); LYMPH # 1.2 10*3/uL (1.3-4.4); LYMPH % 16.9 % (27.0-41.0); MEAN CORPUSCULAR HGB 27.1 pg (27.0-31.0); MEAN CORPUSCULAR HGB CONC 31.6 g/dl (33.0-37.0); MEAN PLATELET VOLUME 8.9 fl (9.6-12.3); MONO # 0.5 10*3/uL (0.1-1.0); MONO % 7.5 % (3.0-9.0); NEUT # 4.9 10*3/uL (2.3-7.9); NEUT % 70.3 % (47.0-73.0); PLATELET COUNT AUTOMATED 478 10*3/uL (130-400); RED BLOOD COUNT 3.28 10*6/uL (4.50-5.90); RED CELL DISTRI WIDTH 14.6 % (0-14.5)
[2020-07-07 06:54] LABS: BUN 19 mg/dl (7-24); CHLORIDE 104 mmol/L (98-107); CREATININE 0.88 mg/dL (0.70-1.30); SODIUM 139 mmol/L (136-145)
[2020-07-07 08:00] VITALS: BP 126/81
--- NOTE | 2020-07-07 09:00 | NUR ---
patient is scheduled for discharge to home today, contacted [facility], spoke to Cruz. patient's information and medication faxed to have benefits checked and to see if patient will have any home costs to iv medications. spoke to patient's Aunt/caregiver regarding patient being discharged to home today. she would like patient sent home by ambulance. social organization professor will set up transportation whenever all of information is gathered
[2020-07-07 12:00] VITALS: BP 131/63
[2020-07-07] MEDS ORDERED: RIFADIN300 MG PO (12:28)
[2020-07-07] MEDS ORDERED: VANCO 1 GR1 GM/250 M IV (12:30)
--- NOTE | 2020-07-07 13:08 | NUR ---
MORPHINE 2 MG GIVEN FOR C/O GENERALIZED PAIN, 04/16.
--- NOTE | 2020-07-07 14:11 | NUR ---
RESTAURANT DELIVERY DRIVER SPOKE WITH SAQIB PEREZ. RESTAURANT DELIVERY DRIVER REACHED OUT TO [facility] AND SPOKE WITH CLAIRE. THEY SHOULD BE ABLE TO TRANSPORT THE PATIENT HOME AT 4PM. CLAIRE STATED IF SOMETHING WERE TO CHANGE THEY WILL NOTIFY RN STATION. RESTAURANT DELIVERY DRIVER REACHED OUT TO ANNIE MAI SHE IS AWARE OF TRANSPORT. SHE HAD QUESTIONS FOR RN. RESTAURANT DELIVERY DRIVER TRANFERRED THE CALL TO RN STATION ON 5TH FLOOR.
--- NOTE | 2020-07-07 14:24 | NUR ---
case management received a call from Diann at [facility] regarding home iv antibiotic, patient has no cost and [facility]omat will get in contact [facility] and set up a time tomorrow when patient will be seen to initiate the iv antibiotics
--- NOTE | 2020-07-07 14:44 | NUR ---
Spoke to Deb at [facility]. Informed of Vanc IV at home. Start of care will be tomorrow morning.
--- NOTE | 2020-07-07 15:06 | NUR ---
PT REFUSES D/C PHOTOS OF WOUNDS PER PROT[facility]OL.
--- NOTE | 2020-07-07 15:32 | NUR ---
NOTIFIED DR COLINDRES THAT WHILE DOING DRESSING CHANGE TO [employer] PT HAD HEAVY, STEADY AND CONTINUOUS STREAM OF BLOOD DRAING FROM WOUND. PRESSURE APPLIED. DRESSING CHANGE COMPLETED PER PHYSICIAN ORDER.DR PITTS AWARE AND PT PREVIOUSLY HAS HAD THIS HAPPENING.LABS ORDERED TO F/U AT HOME.
--- NOTE | 2020-07-07 16:02 | NUR ---
Discharge instructions reviewed with patient/family. Patient receptive and verbalizes understanding. Follow-up care arranged. Written instructions given to patient/family. ED NARVAE[facility]
== END 2020-07-07 16:02 | disposition home or self-care (01) | DRG 206 ==
LOC: ED 17:09 → 5E 18:44 → EDHOLD 18:44 → 5E 20:56
PROVIDERS: Emergency Medicine; Hospitalist; Internal Medicine; Student in an Organized Health Care Education/Training Program; ADMIT Emergency Medicine; ATTEND Emergency Medicine
PROC: 30233N1 Transfusion of Nonautologous Red Blood Cells into Peripheral Vein, Percutaneous Approach (ICD-10-PCS; principal; 2020-06-27)
PROC: 0QBB0ZX Excision of Right Lower Femur, Open Approach, Diagnostic (ICD-10-PCS; 2020-06-30)
PROC: 0QBG0ZX Excision of Right Tibia, Open Approach, Diagnostic (ICD-10-PCS; 2020-06-30)
PROC: B24BZZ4 Ultrasonography of Heart with Aorta, Transesophageal (ICD-10-PCS; 2020-07-03)
PROC: 0JPT0WZ Removal of Totally Implantable Vascular Access Device from Trunk Subcutaneous Tissue and Fascia, Open Approach (ICD-10-PCS; 2020-07-06)
PROC: 05PYX3Z Removal of Infusion Device from Upper Vein, External Approach (ICD-10-PCS; 2020-07-06)
PROC: 05HY33Z Insertion of Infusion Device into Upper Vein, Percutaneous Approach (ICD-10-PCS; 2020-07-07)
DX: T82.514A Breakdown (mechanical) of infusion catheter, initial encounter (principal); M00.061 Staphylococcal arthritis, right knee; L89.153 Pressure ulcer of sacral region, stage 3; D64.9 Anemia, unspecified; N50.89 Other specified disorders of the male genital organs; E87.8 Other disorders of electrolyte and fluid balance, not elsewhere classified; T80.218A Other infection due to central venous catheter, initial encounter; G89.29 Other chronic pain; R65.10 Systemic inflammatory response syndrome (SIRS) of non-infectious origin without acute organ dysfunction; R74.8 Abnormal levels of other serum enzymes; R79.82 Elevated C-reactive protein (CRP); E11.39 Type 2 diabetes mellitus with other diabetic ophthalmic complication; H54.3 Unqualified visual loss, both eyes; N31.9 Neuromuscular dysfunction of bladder, unspecified; G43.709 Chronic migraine without aura, not intractable, without status migrainosus; E11.65 Type 2 diabetes mellitus with hyperglycemia; E55.9 Vitamin D deficiency, unspecified; E43 Unspecified severe protein-calorie malnutrition; G82.20 Paraplegia, unspecified; M86.361 Chronic multifocal osteomyelitis, right tibia and fibula; M86.351 Chronic multifocal osteomyelitis, right femur; M86.352 Chronic multifocal osteomyelitis, left femur; M86.362 Chronic multifocal osteomyelitis, left tibia and fibula; E11.69 Type 2 diabetes mellitus with other specified complication; M86.18 Other acute osteomyelitis, other site; Z53.29 Procedure and treatment not carried out because of patient's decision for other reasons; N43.3 Hydrocele, unspecified; E11.40 Type 2 diabetes mellitus with diabetic neuropathy, unspecified; M86.68 Other chronic osteomyelitis, other site; Y84.8 Other medical procedures as the cause of abnormal reaction of the patient, or of later complication, without mention of misadventure at the time of the procedure; N50.3 Cyst of epididymis; B96.1 Klebsiella pneumoniae [K. pneumoniae] as the cause of diseases classified elsewhere; B96.89 Other specified bacterial agents as the cause of diseases classified elsewhere; N11.9 Chronic tubulo-interstitial nephritis, unspecified; M25.861 Other specified joint disorders, right knee; I33.0 Acute and subacute infective endocarditis; Z88.2 Allergy status to sulfonamides; Z88.1 Allergy status to other antibiotic agents; Z88.8 Allergy status to other drugs, medicaments and biological substances; Z91.048 Other nonmedicinal substance allergy status; Z88.6 Allergy status to analgesic agent; Z91.040 Latex allergy status; Z87.440 Personal history of urinary (tract) infections; Z90.49 Acquired absence of other specified parts of digestive tract; Z83.3 Family history of diabetes mellitus; Z79.899 Other long term (current) drug therapy; Z79.4 Long term (current) use of insulin; Y92.89 Other specified places as the place of occurrence of the external cause; Z68.27 Body mass index [BMI] 27.0-27.9, adult

== ENCOUNTER 2020-07-11 20:07 | Emergency (ER) | payer MEDICAID ==
[~2020-07-11] VITALS: Ht 149.8 cm; Wt 73.5 kg
[~2020-07-11 20:07] MED LIST changes: +RIFADIN300 MG PO; +VANCO 1 GR1 GM/250 M IV
[2020-07-11 21:30] LABS: BASO % 0.1 % (0.0-1.0); EOS # 0.2 10*3/uL (0.0-0.4); EOS % 2.6 % (1.0-4.0); LYMPH # 1.1 10*3/uL (1.3-4.4); LYMPH % 13.2 % (27.0-41.0); MEAN CELL VOLUME 86.8 fl (80.0-94.0); MEAN CORPUSCULAR HGB 26.9 pg (27.0-31.0); MEAN PLATELET VOLUME 8.2 fl (9.6-12.3); MONO # 0.4 10*3/uL (0.1-1.0); NEUT # 6.4 10*3/uL (2.3-7.9); NEUT % 77.8 % (47.0-73.0); PLATELET COUNT AUTOMATED 476 10*3/uL (130-400); RED BLOOD COUNT 3.34 10*6/uL (4.50-5.90); RED CELL DISTRI WIDTH 14.5 % (0-14.5); WHITE BLOOD COUNT 8.2 10*3/uL (4.8-10.8)
[2020-07-11 21:40] LABS: INTERNATIONAL NORM RATIO 1.2 (2.0-3.5)
[2020-07-11 21:47] LABS: ALKALINE PHOSPHATASE 158 U/L (45-117); BUN 13 mg/dl (7-24); CHLORIDE 109 mmol/L (98-107); CREATININE 0.91 mg/dL (0.70-1.30); POTASSIUM 3.9 mmol/L (3.5-5.1); SGOT/AST 19 IU/L (3-35); SGPT/ALT 16 U/L (12-78); SODIUM 142 mmol/L (136-145); TOTAL PROTEIN 6.8 gm/dL (6.4-8.2)
[2020-07-11 21:52] LABS: TROPONIN I < 0.015 ng/ml (<0.045)
== END 2020-07-12 00:46 | disposition home or self-care (01) ==
LOC: ED 20:07
PROVIDERS: Emergency Medicine
DX: R07.9 Chest pain, unspecified (principal); E10.9 Type 1 diabetes mellitus without complications

== ENCOUNTER 2020-07-26 12:34 | Emergency (ER) | payer MEDICAID ==
[~2020-07-26] VITALS: Ht 149.9 cm; Wt 61.7 kg
[2020-07-26 13:17] LABS: BASO % 0.3 % (0.0-1.0); EOS # 0.3 10*3/uL (0.0-0.4); EOS % 4.9 % (1.0-4.0); HEMATOCRIT 26.7 % (42.0-52.0); LYMPH # 1.3 10*3/uL (1.3-4.4); LYMPH % 22.6 % (27.0-41.0); MEAN CORPUSCULAR HGB 27.9 pg (27.0-31.0); MEAN CORPUSCULAR HGB CONC 32.2 g/dl (33.0-37.0); MEAN PLATELET VOLUME 9.4 fl (9.6-12.3); MONO # 0.5 10*3/uL (0.1-1.0); MONO % 8.3 % (3.0-9.0); NEUT # 3.7 10*3/uL (2.3-7.9); NEUT % 63.6 % (47.0-73.0); PLATELET COUNT AUTOMATED 271 10*3/uL (130-400); RED BLOOD COUNT 3.08 10*6/uL (4.50-5.90); RED CELL DISTRI WIDTH 15.9 % (0-14.5); WHITE BLOOD COUNT 5.9 10*3/uL (4.8-10.8)
[2020-07-26 13:19] LABS: MEAN CELL VOLUME 86.7 fl (80.0-94.0)
[2020-07-26 13:44] LABS: URINE AMPHETAMINES < 1000 (1000ng/ml); URINE BARBITURATES < 200 (200ng/ml); URINE BENZODIAZEPINES < 200 (200ng/ml); URINE CANNABINOIDS (THC) < 50 (50ng/ml); URINE COCAINE < 300 (300ng/ml); URINE METHADONE < 300 (300ng/ml); URINE OPIATES < 300 (300ng/ml)
[2020-07-26 13:45] LABS: URINE PHENCYCLIDINE < 25 (25ng/ml)
[2020-07-26 13:45] LABS: ALBUMIN 2.1 gm/dl (3.1-4.5); ALKALINE PHOSPHATASE 181 U/L (45-117); BUN 14 mg/dl (7-24); CHLORIDE 99 mmol/L (98-107); CREATININE 0.89 mg/dL (0.70-1.30); POTASSIUM 4.4 mmol/L (3.5-5.1); SGOT/AST 14 IU/L (3-35); SGPT/ALT 20 U/L (12-78); SODIUM 131 mmol/L (136-145); TOTAL PROTEIN 6.6 gm/dL (6.4-8.2)
[2020-07-26 13:46] LABS: TROPONIN I < 0.015 ng/ml (<0.045)
== END 2020-07-26 15:58 | disposition home or self-care (01) ==
LOC: ED 12:34
PROVIDERS: Emergency Medicine
DX: R07.89 Other chest pain (principal); E11.65 Type 2 diabetes mellitus with hyperglycemia; Z79.899 Other long term (current) drug therapy; Z79.4 Long term (current) use of insulin; Z88.1 Allergy status to other antibiotic agents; Z88.8 Allergy status to other drugs, medicaments and biological substances; Z88.6 Allergy status to analgesic agent; Z91.040 Latex allergy status

== ENCOUNTER 2020-08-07 11:59 | Emergency (ER) | payer MEDICAID ==
[~2020-08-07] VITALS: Wt 68.0 kg
[2020-08-07 13:23] LABS: BASO % 0.2 % (0.0-1.0); EOS # 0.2 10*3/uL (0.0-0.4); EOS % 3.6 % (1.0-4.0); HEMATOCRIT 30.7 % (42.0-52.0); LYMPH # 1.7 10*3/uL (1.3-4.4); LYMPH % 26.7 % (27.0-41.0); MEAN CELL VOLUME 87.2 fl (80.0-94.0); MEAN CORPUSCULAR HGB 27.6 pg (27.0-31.0); MEAN CORPUSCULAR HGB CONC 31.6 g/dl (33.0-37.0); MEAN PLATELET VOLUME 8.9 fl (9.6-12.3); MONO # 0.5 10*3/uL (0.1-1.0); MONO % 7.4 % (3.0-9.0); NEUT # 3.8 10*3/uL (2.3-7.9); NEUT % 61.8 % (47.0-73.0); PLATELET COUNT AUTOMATED 287 10*3/uL (130-400); RED BLOOD COUNT 3.52 10*6/uL (4.50-5.90); RED CELL DISTRI WIDTH 16.6 % (0-14.5); WHITE BLOOD COUNT 6.2 10*3/uL (4.8-10.8)
[2020-08-07 13:39] LABS: ALBUMIN 2.4 gm/dl (3.1-4.5); ALKALINE PHOSPHATASE 155 U/L (45-117); BUN 26 mg/dl (7-24); CHLORIDE 107 mmol/L (98-107); CREATININE 1.18 mg/dL (0.70-1.30); POTASSIUM 4.1 mmol/L (3.5-5.1); SGOT/AST 13 IU/L (3-35); SGPT/ALT 14 U/L (12-78); SODIUM 140 mmol/L (136-145); TOTAL PROTEIN 7.2 gm/dL (6.4-8.2)
[2020-08-07 13:42] LABS: ACT PARTIAL THROMBO TIME 30.1 SECONDS (20.0-32.1); INTERNATIONAL NORM RATIO 1.1 (2.0-3.5)
== END 2020-08-07 19:31 | disposition home or self-care (01) ==
LOC: ED 11:59
PROVIDERS: Emergency Medicine
DX: Z45.2 Encounter for adjustment and management of vascular access device (principal); Z88.8 Allergy status to other drugs, medicaments and biological substances; Z79.899 Other long term (current) drug therapy

== ENCOUNTER 2020-11-25 12:48 | Emergency (ER) | payer MEDICAID ==
[~2020-11-25] VITALS: Ht 149.8 cm
[2020-11-25 14:17] LABS: BASO % 0.4 % (0.0-1.0); EOS # 0.2 10*3/uL (0.0-0.4); EOS % 2.8 % (1.0-4.0); HEMATOCRIT 32.2 % (42.0-52.0); LYMPH # 1.6 10*3/uL (1.3-4.4); LYMPH % 29.9 % (27.0-41.0); MEAN CELL VOLUME 90.7 fl (80.0-94.0); MEAN CORPUSCULAR HGB 28.5 pg (27.0-31.0); MEAN CORPUSCULAR HGB CONC 31.4 g/dl (33.0-37.0); MEAN PLATELET VOLUME 9.3 fl (9.6-12.3); MONO # 0.4 10*3/uL (0.1-1.0); NEUT # 3.1 10*3/uL (2.3-7.9); NEUT % 58.5 % (47.0-73.0); PLATELET COUNT AUTOMATED 297 10*3/uL (130-400); RED BLOOD COUNT 3.55 10*6/uL (4.50-5.90); RED CELL DISTRI WIDTH 13.8 % (0-14.5); WHITE BLOOD COUNT 5.4 10*3/uL (4.8-10.8)
[2020-11-25 14:47] LABS: ALBUMIN 2.2 gm/dl (3.1-4.5); ALKALINE PHOSPHATASE 165 U/L (45-117); BUN 27 mg/dl (7-24); CHLORIDE 108 mmol/L (98-107); CREATININE 0.74 mg/dL (0.70-1.30); POTASSIUM 3.8 mmol/L (3.5-5.1); SGOT/AST 8 IU/L (3-35); SGPT/ALT 14 U/L (12-78); SODIUM 136 mmol/L (136-145); TOTAL PROTEIN 7.1 gm/dL (6.4-8.2)
[2020-11-25] MEDS ORDERED: CLINDAMYCIN HC300 MG PO (15:39)
== END 2020-11-25 16:42 | disposition home or self-care (01) ==
LOC: ED 12:48
PROVIDERS: Physician Assistant
DX: K13.79 Other lesions of oral mucosa (principal); Z88.2 Allergy status to sulfonamides; Z88.8 Allergy status to other drugs, medicaments and biological substances; Z91.040 Latex allergy status; Z88.6 Allergy status to analgesic agent; Z88.1 Allergy status to other antibiotic agents; Z79.899 Other long term (current) drug therapy; Z79.4 Long term (current) use of insulin; Z90.49 Acquired absence of other specified parts of digestive tract; Z98.890 Other specified postprocedural states

== ENCOUNTER 2021-01-11 09:51 | Emergency (ER) | payer MEDICAID ==
[~2021-01-11] VITALS: Ht 149.8 cm; Wt 60.3 kg
[~2021-01-11 09:51] MED LIST changes: +CLINDAMYCIN HC300 MG PO
[2021-01-11 10:28] LABS: BASO % 0.3 % (0.0-1.0); EOS # 0.2 10*3/uL (0.0-0.4); EOS % 2.4 % (1.0-4.0); HEMATOCRIT 36.8 % (42.0-52.0); LYMPH % 30.7 % (27.0-41.0); MEAN CELL VOLUME 84.8 fl (80.0-94.0); MEAN CORPUSCULAR HGB 28.6 pg (27.0-31.0); MEAN CORPUSCULAR HGB CONC 33.7 g/dl (33.0-37.0); MEAN PLATELET VOLUME 9.9 fl (9.6-12.3); MONO # 0.6 10*3/uL (0.1-1.0); MONO % 8.4 % (3.0-9.0); NEUT # 3.7 10*3/uL (2.3-7.9); NEUT % 57.3 % (47.0-73.0); PLATELET COUNT AUTOMATED 265 10*3/uL (130-400); RED BLOOD COUNT 4.34 10*6/uL (4.50-5.90); RED CELL DISTRI WIDTH 14.1 % (0-14.5); WHITE BLOOD COUNT 6.5 10*3/uL (4.8-10.8)
[2021-01-11 10:44] LABS: ALBUMIN 2.6 gm/dl (3.1-4.5); ALKALINE PHOSPHATASE 234 U/L (45-117); BUN 21 mg/dl (7-24); CHLORIDE 107 mmol/L (98-107); CREATININE 0.95 mg/dL (0.70-1.30); POTASSIUM 4.1 mmol/L (3.5-5.1); SGOT/AST 15 IU/L (3-35); SGPT/ALT 21 U/L (12-78); SODIUM 133 mmol/L (136-145)
[2021-01-11] MEDS ORDERED: PERCOCET 10-321 EACH PO (12:16)
== END 2021-01-11 12:37 | disposition home or self-care (01) ==
LOC: ED 09:51
PROVIDERS: Family Medicine
DX: G89.18 Other acute postprocedural pain (principal); Z88.8 Allergy status to other drugs, medicaments and biological substances; Z88.2 Allergy status to sulfonamides; Z88.6 Allergy status to analgesic agent; Z91.040 Latex allergy status; Z79.899 Other long term (current) drug therapy; Z79.4 Long term (current) use of insulin; Z90.49 Acquired absence of other specified parts of digestive tract

== ENCOUNTER 2021-01-26 21:42 | Emergency (ER) | payer MEDICAID ==
[~2021-01-26 21:42] MED LIST changes: +PERCOCET 10-321 EACH PO
[2021-01-26 22:51] LABS: BILIRUBIN Negative (Negative); BLOOD 3+ (Negative); CLARITY Cloudy (Clear); COLOR Yellow (Yellow); GLUCOSE 3+ (Negative); KETONE Negative (Negative); LEUKO ESTERASE 1+ (Negative); NITRITE Negative (Negative); PH 6.5 (4.5-8.0); SPECIFIC GRAVITY 1.015 (1.001-1.030); UROBILINOGEN 0.2 E.U./dl (0.0-1.0)
[2021-01-26 23:02] LABS: BACTERIA 4+
[2021-01-27 00:38] LABS: ALBUMIN 2.5 gm/dl (3.1-4.5); ALKALINE PHOSPHATASE 222 U/L (45-117); BUN 29 mg/dl (7-24); CHLORIDE 107 mmol/L (98-107); CREATININE 1.01 mg/dL (0.70-1.30); POTASSIUM 5.1 mmol/L (3.5-5.1); SGOT/AST 34 IU/L (3-35); SGPT/ALT 35 U/L (12-78); SODIUM 138 mmol/L (136-145); TOTAL PROTEIN 6.7 gm/dL (6.4-8.2)
[2021-01-27 00:49] LABS: BASO % 0.3 % (0.0-1.0); EOS # 0.1 10*3/uL (0.0-0.4); EOS % 2.1 % (1.0-4.0); HEMATOCRIT 34.4 % (42.0-52.0); LYMPH # 2.3 10*3/uL (1.3-4.4); LYMPH % 34.1 % (27.0-41.0); MEAN CELL VOLUME 87.3 fl (80.0-94.0); MEAN CORPUSCULAR HGB 29.2 pg (27.0-31.0); MEAN CORPUSCULAR HGB CONC 33.4 g/dl (33.0-37.0); MEAN PLATELET VOLUME 9.4 fl (9.6-12.3); MONO # 0.4 10*3/uL (0.1-1.0); MONO % 6.2 % (3.0-9.0); NEUT # 3.9 10*3/uL (2.3-7.9); PLATELET COUNT AUTOMATED 220 10*3/uL (130-400); RED BLOOD COUNT 3.94 10*6/uL (4.50-5.90); RED CELL DISTRI WIDTH 14.7 % (0-14.5); WHITE BLOOD COUNT 6.8 10*3/uL (4.8-10.8)
[2021-01-27] MEDS ORDERED: CEFUROXIME AXE500 MG PO (05:24)
== END 2021-01-27 06:33 | disposition home or self-care (01) ==
LOC: ED 21:42
PROVIDERS: Emergency Medicine; Physician Assistant
DX: N39.0 Urinary tract infection, site not specified (principal); Z91.040 Latex allergy status; Z88.8 Allergy status to other drugs, medicaments and biological substances; Z88.2 Allergy status to sulfonamides; Z79.899 Other long term (current) drug therapy; Z98.890 Other specified postprocedural states

== ENCOUNTER 2021-03-09 10:38 | Inpatient (IN) | payer MEDICAID ==
[~2021-03-09] VITALS: Ht 149.8 cm; Wt 56.5 kg
[2021-03-09 10:38] VITALS: BP 128/82
[~2021-03-09 10:38] MED LIST changes: +CEFUROXIME AXE500 MG PO; -PEPCID40 MG PO
[2021-03-09 11:24] LABS: BILIRUBIN Negative (Negative); BLOOD 1+ (Negative); CLARITY Cloudy (Clear); COLOR Yellow (Yellow); GLUCOSE Negative (Negative); KETONE Negative (Negative); LEUKO ESTERASE 3+ (Negative); NITRITE Negative (Negative); PH 6.5 (4.5-8.0); UROBILINOGEN 0.2 E.U./dl (0.0-1.0)
[2021-03-09 11:36] LABS: BACTERIA 4+; MUCOUS 2+; WBC 31-40 wbc/hpf (0-5); YEAST 1+
[2021-03-09 11:54] LABS: BASO % 0.2 % (0.0-1.0); EOS # 0.1 10*3/uL (0.0-0.4); EOS % 2.1 % (1.0-4.0); HEMATOCRIT 35.5 % (42.0-52.0); LYMPH # 1.9 10*3/uL (1.3-4.4); LYMPH % 30.7 % (27.0-41.0); MEAN CELL VOLUME 88.8 fl (80.0-94.0); MEAN CORPUSCULAR HGB 29.3 pg (27.0-31.0); MEAN PLATELET VOLUME 9.3 fl (9.6-12.3); MONO # 0.5 10*3/uL (0.1-1.0); MONO % 7.8 % (3.0-9.0); NEUT # 3.6 10*3/uL (2.3-7.9); NEUT % 58.6 % (47.0-73.0); PLATELET COUNT AUTOMATED 228 10*3/uL (130-400); RED CELL DISTRI WIDTH 14.7 % (0-14.5); WHITE BLOOD COUNT 6.2 10*3/uL (4.8-10.8)
[2021-03-09 12:12] LABS: ALBUMIN 2.5 gm/dl (3.1-4.5); ALKALINE PHOSPHATASE 172 U/L (45-117); BUN 29 mg/dl (7-24); CHLORIDE 106 mmol/L (98-107); CREATININE 0.72 mg/dL (0.70-1.30); LIPASE 39 U/L (73-393); SGOT/AST 10 IU/L (3-35); SGPT/ALT 13 U/L (12-78); SODIUM 133 mmol/L (136-145)
[2021-03-09 12:13] LABS: TROPONIN I < 0.015 ng/ml (<0.045)
[2021-03-09 14:22] VITALS: BP 123/79
[2021-03-09 20:00] VITALS: BP 118/63
[2021-03-10] VITALS: BP 108/64
[2021-03-10 06:52] LABS: ALBUMIN 2.7 gm/dl (3.1-4.5); BUN 29 mg/dl (7-24); CHLORIDE 110 mmol/L (98-107); SODIUM 137 mmol/L (136-145)
[2021-03-10 06:57] LABS: CREATININE 0.79 mg/dL (0.70-1.30); SGOT/AST 18 IU/L (3-35); SGPT/ALT 13 U/L (12-78); TOTAL PROTEIN 6.6 gm/dL (6.4-8.2)
[2021-03-10 07:17] LABS: ALKALINE PHOSPHATASE 182 U/L (45-117); POTASSIUM 5.2 mmol/L (3.5-5.1)
[2021-03-10 07:21] LABS: BASO % 0.2 % (0.0-1.0); EOS # 0.1 10*3/uL (0.0-0.4); EOS % 2.4 % (1.0-4.0); HEMATOCRIT 37.6 % (42.0-52.0); LYMPH # 1.4 10*3/uL (1.3-4.4); MEAN CELL VOLUME 88.1 fl (80.0-94.0); MEAN CORPUSCULAR HGB 29.5 pg (27.0-31.0); MEAN CORPUSCULAR HGB CONC 33.5 g/dl (33.0-37.0); MEAN PLATELET VOLUME 9.9 fl (9.6-12.3); MONO # 0.7 10*3/uL (0.1-1.0); MONO % 13.6 % (3.0-9.0); NEUT # 2.7 10*3/uL (2.3-7.9); NEUT % 54.4 % (47.0-73.0); PLATELET COUNT AUTOMATED 227 10*3/uL (130-400); RED BLOOD COUNT 4.27 10*6/uL (4.50-5.90); RED CELL DISTRI WIDTH 14.9 % (0-14.5); WHITE BLOOD COUNT 4.9 10*3/uL (4.8-10.8)
[2021-03-10 08:00] VITALS: BP 102/67
[2021-03-10 12:00] VITALS: BP 127/77
[2021-03-10 16:00] VITALS: BP 128/74
[2021-03-10 16:46] LABS: BUN 29 mg/dl (7-24); CHLORIDE 108 mmol/L (98-107); CREATININE 0.82 mg/dL (0.70-1.30); SODIUM 135 mmol/L (136-145)
[2021-03-10 20:00] VITALS: BP 115/78
[2021-03-11] VITALS: BP 116/74
[2021-03-11 06:43] LABS: BASO % 0.5 % (0.0-1.0); EOS # 0.1 10*3/uL (0.0-0.4); EOS % 2.9 % (1.0-4.0); HEMATOCRIT 34.5 % (42.0-52.0); LYMPH # 1.3 10*3/uL (1.3-4.4); LYMPH % 31.7 % (27.0-41.0); MEAN CELL VOLUME 89.1 fl (80.0-94.0); MEAN CORPUSCULAR HGB 28.9 pg (27.0-31.0); MEAN CORPUSCULAR HGB CONC 32.5 g/dl (33.0-37.0); MEAN PLATELET VOLUME 9.7 fl (9.6-12.3); MONO # 0.6 10*3/uL (0.1-1.0); MONO % 14.1 % (3.0-9.0); NEUT # 2.1 10*3/uL (2.3-7.9); NEUT % 49.6 % (47.0-73.0); PLATELET COUNT AUTOMATED 226 10*3/uL (130-400); RED BLOOD COUNT 3.87 10*6/uL (4.50-5.90); RED CELL DISTRI WIDTH 14.8 % (0-14.5); WHITE BLOOD COUNT 4.2 10*3/uL (4.8-10.8)
[2021-03-11 06:50] LABS: ALBUMIN 2.6 gm/dl (3.1-4.5); ALKALINE PHOSPHATASE 169 U/L (45-117); BUN 29 mg/dl (7-24); CHLORIDE 110 mmol/L (98-107); CREATININE 0.79 mg/dL (0.70-1.30); POTASSIUM 5.1 mmol/L (3.5-5.1); SGOT/AST 11 IU/L (3-35); SGPT/ALT 13 U/L (12-78); SODIUM 138 mmol/L (136-145); TOTAL PROTEIN 6.2 gm/dL (6.4-8.2)
[2021-03-11 08:00] VITALS: BP 102/69
[2021-03-11 16:00] VITALS: BP 122/69
[2021-03-11] MEDS ORDERED: REMERON15 M2 PO (16:12)
[2021-03-11] MEDS ORDERED: ZYVOX600 MG PO ×2 (16:12)
[2021-03-11] MEDS ORDERED: EFFEXOR XR37.5 M1 PO ×2 (16:12)
== END 2021-03-11 18:15 | disposition home health service (06) | DRG 463 ==
LOC: ED 10:38 → EDHOLD 13:20 → 4E 13:20
PROVIDERS: Emergency Medicine; Internal Medicine; Student in an Organized Health Care Education/Training Program; ADMIT Internal Medicine; ATTEND Internal Medicine
PROC: 05JY3ZZ Inspection of Upper Vein, Percutaneous Approach (ICD-10-PCS; principal; 2021-03-10)
DX: N39.0 Urinary tract infection, site not specified (principal); E10.65 Type 1 diabetes mellitus with hyperglycemia; L89.153 Pressure ulcer of sacral region, stage 3; G82.20 Paraplegia, unspecified; E88.09 Other disorders of plasma-protein metabolism, not elsewhere classified; E83.41 Hypermagnesemia; E86.0 Dehydration; E87.1 Hypo-osmolality and hyponatremia; E10.40 Type 1 diabetes mellitus with diabetic neuropathy, unspecified; R59.0 Localized enlarged lymph nodes; L97.929 Non-pressure chronic ulcer of unspecified part of left lower leg with unspecified severity; L97.919 Non-pressure chronic ulcer of unspecified part of right lower leg with unspecified severity; E10.39 Type 1 diabetes mellitus with other diabetic ophthalmic complication; G43.909 Migraine, unspecified, not intractable, without status migrainosus; B96.1 Klebsiella pneumoniae [K. pneumoniae] as the cause of diseases classified elsewhere; Z88.2 Allergy status to sulfonamides; Z88.8 Allergy status to other drugs, medicaments and biological substances; Z88.6 Allergy status to analgesic agent; Z88.1 Allergy status to other antibiotic agents; Z91.040 Latex allergy status; Z83.3 Family history of diabetes mellitus; Z90.49 Acquired absence of other specified parts of digestive tract; Z87.440 Personal history of urinary (tract) infections; Z79.899 Other long term (current) drug therapy

== ENCOUNTER 2021-03-24 20:48 | Inpatient (IN) | payer MEDICAID ==
[~2021-03-24] VITALS: Ht 149.8 cm; Wt 56.8 kg
[2021-03-24 20:48] VITALS: BP 125/86
[~2021-03-24 20:48] MED LIST changes: +ZYVOX600 MG PO
[2021-03-24 21:21] LABS: BASO % 0.2 % (0.0-1.0); EOS # 0.1 10*3/uL (0.0-0.4); EOS % 1.7 % (1.0-4.0); HEMATOCRIT 33.2 % (42.0-52.0); LYMPH # 1.3 10*3/uL (1.3-4.4); LYMPH % 30.5 % (27.0-41.0); MEAN CELL VOLUME 91.2 fl (80.0-94.0); MEAN CORPUSCULAR HGB 29.4 pg (27.0-31.0); MEAN CORPUSCULAR HGB CONC 32.2 g/dl (33.0-37.0); MEAN PLATELET VOLUME 8.3 fl (9.6-12.3); MONO # 0.4 10*3/uL (0.1-1.0); MONO % 9.1 % (3.0-9.0); NEUT # 2.4 10*3/uL (2.3-7.9); NEUT % 57.5 % (47.0-73.0); PLATELET COUNT AUTOMATED 251 10*3/uL (130-400); RED BLOOD COUNT 3.64 10*6/uL (4.50-5.90); RED CELL DISTRI WIDTH 14.1 % (0-14.5); WHITE BLOOD COUNT 4.2 10*3/uL (4.8-10.8)
[2021-03-24 21:31] LABS: BILIRUBIN Negative (Negative); BLOOD 1+ (Negative); CLARITY Clear (Clear); COLOR Yellow (Yellow); GLUCOSE 2+ (Negative); KETONE 2+ (Negative); LEUKO ESTERASE Negative (Negative); NITRITE Negative (Negative); UROBILINOGEN 0.2 E.U./dl (0.0-1.0)
[2021-03-24 21:37] LABS: BACTERIA 2+; RBC 16-20 rbc/hpf (0-2)
[2021-03-24 21:37] LABS: ALBUMIN 2.5 gm/dl (3.1-4.5); ALKALINE PHOSPHATASE 217 U/L (45-117); BUN 17 mg/dl (7-24); CHLORIDE 104 mmol/L (98-107); CREATININE 0.97 mg/dL (0.70-1.30); LIPASE 27 U/L (73-393); POTASSIUM 3.7 mmol/L (3.5-5.1); SGOT/AST 12 IU/L (3-35); SGPT/ALT 21 U/L (12-78); SODIUM 136 mmol/L (136-145); TOTAL PROTEIN 6.5 gm/dL (6.4-8.2)
[2021-03-25] VITALS: BP 84/43
[2021-03-25 02:37] VITALS: BP 135/70
[2021-03-25 04:37] LABS: BASO % 0.5 % (0.0-1.0); EOS # 0.1 10*3/uL (0.0-0.4); EOS % 2.5 % (1.0-4.0); HEMATOCRIT 31.9 % (42.0-52.0); LYMPH # 1.3 10*3/uL (1.3-4.4); LYMPH % 29.8 % (27.0-41.0); MEAN CELL VOLUME 90.6 fl (80.0-94.0); MEAN PLATELET VOLUME 8.3 fl (9.6-12.3); MONO # 0.5 10*3/uL (0.1-1.0); MONO % 10.7 % (3.0-9.0); NEUT # 2.4 10*3/uL (2.3-7.9); NEUT % 55.1 % (47.0-73.0); PLATELET COUNT AUTOMATED 226 10*3/uL (130-400); RED BLOOD COUNT 3.52 10*6/uL (4.50-5.90); RED CELL DISTRI WIDTH 14.2 % (0-14.5); WHITE BLOOD COUNT 4.4 10*3/uL (4.8-10.8)
[2021-03-25 04:54] LABS: ALBUMIN 2.4 gm/dl (3.1-4.5); ALKALINE PHOSPHATASE 198 U/L (45-117); BUN 15 mg/dl (7-24); CHLORIDE 107 mmol/L (98-107); CREATININE 0.91 mg/dL (0.70-1.30); FREE T4 1.66 ng/dl (0.76-1.46); POTASSIUM 3.3 mmol/L (3.5-5.1); SGOT/AST 14 IU/L (3-35); SGPT/ALT 20 U/L (12-78); SODIUM 136 mmol/L (136-145); TOTAL PROTEIN 6.1 gm/dL (6.4-8.2)
[2021-03-25 06:09] VITALS: BP 133/65
[2021-03-25] MEDS ORDERED: EFFEXOR XR75 M1 PO (10:18)
[2021-03-25] MEDS ORDERED: MEGACE40 MG PO (10:18)
[2021-03-25] MEDS ORDERED: FLUCONAZOLE100 MG PO (10:19)
[2021-03-25] MEDS ORDERED: ZYVOX600 MG PO (10:20)
[2021-03-25] MEDS ORDERED: HUMULIN R100 UNIT/1 SC (10:29)
[2021-03-25 12:00] VITALS: BP 84/43
[2021-03-25 16:00] VITALS: BP 138/85
[2021-03-25 20:00] VITALS: BP 84/43; BP 95/61
[2021-03-26] VITALS: BP 103/67
[2021-03-26 04:00] VITALS: BP 84/43
[2021-03-26 06:46] LABS: BASO % 0.3 % (0.0-1.0); EOS # 0.1 10*3/uL (0.0-0.4); EOS % 2.5 % (1.0-4.0); HEMATOCRIT 33.8 % (42.0-52.0); LYMPH # 1.5 10*3/uL (1.3-4.4); LYMPH % 41.5 % (27.0-41.0); MEAN CELL VOLUME 89.2 fl (80.0-94.0); MEAN CORPUSCULAR HGB CONC 32.5 g/dl (33.0-37.0); MEAN PLATELET VOLUME 8.6 fl (9.6-12.3); MONO # 0.5 10*3/uL (0.1-1.0); MONO % 12.4 % (3.0-9.0); NEUT # 1.5 10*3/uL (2.3-7.9); NEUT % 42.2 % (47.0-73.0); PLATELET COUNT AUTOMATED 245 10*3/uL (130-400); RED BLOOD COUNT 3.79 10*6/uL (4.50-5.90); RED CELL DISTRI WIDTH 14.3 % (0-14.5); WHITE BLOOD COUNT 3.6 10*3/uL (4.8-10.8)
[2021-03-26 07:04] LABS: ALBUMIN 2.5 gm/dl (3.1-4.5); ALKALINE PHOSPHATASE 198 U/L (45-117); BUN 12 mg/dl (7-24); CHLORIDE 108 mmol/L (98-107); CREATININE 0.85 mg/dL (0.70-1.30); POTASSIUM 3.7 mmol/L (3.5-5.1); SGOT/AST 14 IU/L (3-35); SGPT/ALT 20 U/L (12-78); SODIUM 138 mmol/L (136-145); TOTAL PROTEIN 6.5 gm/dL (6.4-8.2)
[2021-03-26 08:00] VITALS: BP 158/84
[2021-03-26 12:00] VITALS: BP 147/94
[2021-03-26 20:00] VITALS: BP 138/90
[2021-03-27] VITALS: BP 132/84
[2021-03-27 06:45] LABS: BASO % 0.6 % (0.0-1.0); EOS # 0.1 10*3/uL (0.0-0.4); EOS % 2.4 % (1.0-4.0); HEMATOCRIT 40.1 % (42.0-52.0); LYMPH # 1.8 10*3/uL (1.3-4.4); LYMPH % 36.6 % (27.0-41.0); MEAN CELL VOLUME 87.4 fl (80.0-94.0); MEAN CORPUSCULAR HGB 29.4 pg (27.0-31.0); MEAN CORPUSCULAR HGB CONC 33.7 g/dl (33.0-37.0); MEAN PLATELET VOLUME 8.9 fl (9.6-12.3); MONO # 0.4 10*3/uL (0.1-1.0); MONO % 8.3 % (3.0-9.0); NEUT # 2.5 10*3/uL (2.3-7.9); NEUT % 50.1 % (47.0-73.0); PLATELET COUNT AUTOMATED 220 10*3/uL (130-400); RED BLOOD COUNT 4.59 10*6/uL (4.50-5.90); RED CELL DISTRI WIDTH 14.2 % (0-14.5); WHITE BLOOD COUNT 4.9 10*3/uL (4.8-10.8)
[2021-03-27 06:49] LABS: ALBUMIN 2.5 gm/dl (3.1-4.5); BUN 15 mg/dl (7-24); CHLORIDE 109 mmol/L (98-107); CREATININE 0.79 mg/dL (0.70-1.30); POTASSIUM 4.1 mmol/L (3.5-5.1); SGOT/AST 22 IU/L (3-35); SGPT/ALT 20 U/L (12-78); SODIUM 139 mmol/L (136-145)
[2021-03-27 06:51] LABS: ALKALINE PHOSPHATASE 194 U/L (45-117); TOTAL PROTEIN 6.5 gm/dL (6.4-8.2)
[2021-03-27 08:00] VITALS: BP 98/67
[2021-03-27 12:00] VITALS: BP 142/91
[2021-03-27 16:00] VITALS: BP 115/74
[2021-03-27 20:00] VITALS: BP 118/78
[2021-03-28] VITALS: BP 114/68
[2021-03-28 06:54] LABS: BASO % 0.2 % (0.0-1.0); EOS # 0.1 10*3/uL (0.0-0.4); EOS % 2.4 % (1.0-4.0); HEMATOCRIT 33.1 % (42.0-52.0); LYMPH # 2.5 10*3/uL (1.3-4.4); LYMPH % 49.8 % (27.0-41.0); MEAN CELL VOLUME 89.5 fl (80.0-94.0); MEAN CORPUSCULAR HGB 29.2 pg (27.0-31.0); MEAN CORPUSCULAR HGB CONC 32.6 g/dl (33.0-37.0); MEAN PLATELET VOLUME 8.7 fl (9.6-12.3); MONO # 0.5 10*3/uL (0.1-1.0); MONO % 8.9 % (3.0-9.0); NEUT # 1.9 10*3/uL (2.3-7.9); NEUT % 38.3 % (47.0-73.0); PLATELET COUNT AUTOMATED 228 10*3/uL (130-400); RED CELL DISTRI WIDTH 14.1 % (0-14.5)
[2021-03-28 07:27] LABS: BUN 16 mg/dl (7-24); CHLORIDE 107 mmol/L (98-107); CREATININE 0.84 mg/dL (0.70-1.30); POTASSIUM 3.9 mmol/L (3.5-5.1); SODIUM 139 mmol/L (136-145)
[2021-03-28 08:00] VITALS: BP 122/77
[2021-03-28 12:00] VITALS: BP 126/80
[2021-03-28 16:00] VITALS: BP 121/76
[2021-03-28 20:00] VITALS: BP 110/70
[2021-03-29] VITALS: BP 123/87
[2021-03-29 06:23] LABS: BASO % 0.2 % (0.0-1.0); EOS # 0.1 10*3/uL (0.0-0.4); HEMATOCRIT 34.1 % (42.0-52.0); LYMPH # 2.1 10*3/uL (1.3-4.4); MEAN CELL VOLUME 90.9 fl (80.0-94.0); MEAN CORPUSCULAR HGB 29.3 pg (27.0-31.0); MEAN CORPUSCULAR HGB CONC 32.3 g/dl (33.0-37.0); MEAN PLATELET VOLUME 8.6 fl (9.6-12.3); MONO # 0.4 10*3/uL (0.1-1.0); MONO % 8.1 % (3.0-9.0); NEUT % 43.3 % (47.0-73.0); PLATELET COUNT AUTOMATED 207 10*3/uL (130-400); RED BLOOD COUNT 3.75 10*6/uL (4.50-5.90); RED CELL DISTRI WIDTH 14.2 % (0-14.5); WHITE BLOOD COUNT 4.7 10*3/uL (4.8-10.8)
[2021-03-29 06:41] LABS: BUN 19 mg/dl (7-24); CHLORIDE 106 mmol/L (98-107); CREATININE 1.13 mg/dL (0.70-1.30); POTASSIUM 4.1 mmol/L (3.5-5.1); SODIUM 138 mmol/L (136-145)
[2021-03-29 08:00] VITALS: BP 126/74
[2021-03-29 12:00] VITALS: BP 131/63
[2021-03-29 16:00] VITALS: BP 125/78
[2021-03-29 20:00] VITALS: BP 140/83
[2021-03-30] VITALS: BP 145/76
[2021-03-30 06:38] LABS: BASO % 0.2 % (0.0-1.0); EOS # 0.1 10*3/uL (0.0-0.4); EOS % 1.9 % (1.0-4.0); HEMATOCRIT 31.6 % (42.0-52.0); LYMPH # 1.9 10*3/uL (1.3-4.4); LYMPH % 35.7 % (27.0-41.0); MEAN CELL VOLUME 89.3 fl (80.0-94.0); MEAN CORPUSCULAR HGB 29.1 pg (27.0-31.0); MEAN CORPUSCULAR HGB CONC 32.6 g/dl (33.0-37.0); MEAN PLATELET VOLUME 8.9 fl (9.6-12.3); MONO # 0.4 10*3/uL (0.1-1.0); NEUT # 2.9 10*3/uL (2.3-7.9); NEUT % 54.8 % (47.0-73.0); PLATELET COUNT AUTOMATED 201 10*3/uL (130-400); RED BLOOD COUNT 3.54 10*6/uL (4.50-5.90); RED CELL DISTRI WIDTH 14.1 % (0-14.5); WHITE BLOOD COUNT 5.3 10*3/uL (4.8-10.8)
[2021-03-30 06:53] LABS: BUN 21 mg/dl (7-24); CHLORIDE 105 mmol/L (98-107); SODIUM 137 mmol/L (136-145)
[2021-03-30 06:54] LABS: CREATININE 0.98 mg/dL (0.70-1.30)
[2021-03-30 08:00] VITALS: BP 126/60
[2021-03-30 12:00] VITALS: BP 106/63
[2021-03-30 16:00] VITALS: BP 104/76
[2021-03-31] VITALS: BP 112/65
[2021-03-31 06:31] LABS: BASO % 0.2 % (0.0-1.0); EOS # 0.1 10*3/uL (0.0-0.4); EOS % 2.6 % (1.0-4.0); HEMATOCRIT 30.9 % (42.0-52.0); LYMPH # 2.6 10*3/uL (1.3-4.4); LYMPH % 54.7 % (27.0-41.0); MEAN CELL VOLUME 90.9 fl (80.0-94.0); MEAN CORPUSCULAR HGB 28.8 pg (27.0-31.0); MEAN CORPUSCULAR HGB CONC 31.7 g/dl (33.0-37.0); MONO # 0.3 10*3/uL (0.1-1.0); NEUT # 1.7 10*3/uL (2.3-7.9); NEUT % 36.3 % (47.0-73.0); PLATELET COUNT AUTOMATED 204 10*3/uL (130-400); RED CELL DISTRI WIDTH 14.4 % (0-14.5); WHITE BLOOD COUNT 4.7 10*3/uL (4.8-10.8)
[2021-03-31 06:42] LABS: BUN 26 mg/dl (7-24); CHLORIDE 111 mmol/L (98-107); CREATININE 1.15 mg/dL (0.70-1.30); POTASSIUM 4.1 mmol/L (3.5-5.1); SODIUM 140 mmol/L (136-145)
[2021-03-31 08:00] VITALS: BP 98/61
[2021-03-31 12:00] VITALS: BP 100/78; BP 180/98
[2021-03-31 16:00] VITALS: BP 148/91
[2021-03-31 20:00] VITALS: BP 109/82
[2021-04-01] VITALS: BP 113/71
[2021-04-01 06:22] LABS: BUN 32 mg/dl (7-24); CHLORIDE 108 mmol/L (98-107); CREATININE 1.22 mg/dL (0.70-1.30); POTASSIUM 3.9 mmol/L (3.5-5.1); SODIUM 136 mmol/L (136-145)
[2021-04-01 08:00] VITALS: BP 98/64
[2021-04-01 12:00] VITALS: BP 95/65
[2021-04-01 16:00] VITALS: BP 100/62
[2021-04-01 20:00] VITALS: BP 142/88
[2021-04-02] VITALS: BP 160/80
[2021-04-02 05:21] LABS: BUN 26 mg/dl (7-24); CHLORIDE 110 mmol/L (98-107); CREATININE 0.91 mg/dL (0.70-1.30); POTASSIUM 3.7 mmol/L (3.5-5.1); SODIUM 139 mmol/L (136-145)
[2021-04-02 08:00] VITALS: BP 96/56
[2021-04-02 12:00] VITALS: BP 137/78
== END 2021-04-02 16:33 | disposition home health service (06) | DRG 463 ==
LOC: ED 20:48 → 4E 22:29 → EDHOLD 22:29 → 4E 03-25 08:45
PROVIDERS: Internal Medicine; Student in an Organized Health Care Education/Training Program; ADMIT Family Medicine; ATTEND Family Medicine
PROC: 0HBRXZZ Excision of Toe Nail, External Approach (ICD-10-PCS; principal; 2021-03-25)
PROC: 0HBRXZZ Excision of Toe Nail, External Approach (ICD-10-PCS; 2021-03-25)
PROC: 0HBRXZZ Excision of Toe Nail, External Approach (ICD-10-PCS; 2021-03-25)
PROC: 0HBRXZZ Excision of Toe Nail, External Approach (ICD-10-PCS; 2021-03-25)
PROC: 0HBRXZZ Excision of Toe Nail, External Approach (ICD-10-PCS; 2021-03-25)
PROC: 0HBRXZZ Excision of Toe Nail, External Approach (ICD-10-PCS; 2021-03-25)
PROC: 0HBRXZZ Excision of Toe Nail, External Approach (ICD-10-PCS; 2021-03-25)
PROC: 0HBRXZZ Excision of Toe Nail, External Approach (ICD-10-PCS; 2021-03-25)
PROC: 0HBRXZZ Excision of Toe Nail, External Approach (ICD-10-PCS; 2021-03-25)
PROC: 0HBRXZZ Excision of Toe Nail, External Approach (ICD-10-PCS; 2021-03-25)
PROC: 02H633Z Insertion of Infusion Device into Right Atrium, Percutaneous Approach (ICD-10-PCS; 2021-03-26)
PROC: B548ZZA Ultrasonography of Superior Vena Cava, Guidance (ICD-10-PCS; 2021-03-26)
DX: N39.0 Urinary tract infection, site not specified (principal); E87.1 Hypo-osmolality and hyponatremia; E83.41 Hypermagnesemia; E43 Unspecified severe protein-calorie malnutrition; E11.40 Type 2 diabetes mellitus with diabetic neuropathy, unspecified; G82.20 Paraplegia, unspecified; L89.153 Pressure ulcer of sacral region, stage 3; G43.709 Chronic migraine without aura, not intractable, without status migrainosus; E11.39 Type 2 diabetes mellitus with other diabetic ophthalmic complication; B35.1 Tinea unguium; D64.9 Anemia, unspecified; N99.528 Other complication of incontinent external stoma of urinary tract; Z20.822 Contact with and (suspected) exposure to COVID-19; E11.65 Type 2 diabetes mellitus with hyperglycemia; E88.09 Other disorders of plasma-protein metabolism, not elsewhere classified; B96.89 Other specified bacterial agents as the cause of diseases classified elsewhere; N31.9 Neuromuscular dysfunction of bladder, unspecified; Z76.5 Malingerer [conscious simulation]; Z79.4 Long term (current) use of insulin; Z88.2 Allergy status to sulfonamides; Z88.8 Allergy status to other drugs, medicaments and biological substances; Z88.1 Allergy status to other antibiotic agents; Z91.040 Latex allergy status; Z79.1 Long term (current) use of non-steroidal anti-inflammatories (NSAID); Z79.899 Other long term (current) drug therapy; Z90.49 Acquired absence of other specified parts of digestive tract; Z83.3 Family history of diabetes mellitus; Z68.25 Body mass index [BMI] 25.0-25.9, adult

== ENCOUNTER 2021-05-15 19:11 | Emergency (ER) | payer MEDICAID ==
[~2021-05-15] VITALS: Ht 149.8 cm; Wt 59.0 kg
[~2021-05-15 19:11] MED LIST changes: +EFFEXOR XR75 M1 PO; +HUMULIN R100 UNIT/1 SC
[2021-05-15 20:06] LABS: BASO % 0.3 % (0.0-1.0); EOS # 0.1 10*3/uL (0.0-0.4); EOS % 1.8 % (1.0-4.0); HEMATOCRIT 33.1 % (42.0-52.0); LYMPH # 1.6 10*3/uL (1.3-4.4); LYMPH % 27.2 % (27.0-41.0); MEAN CELL VOLUME 92.5 fl (80.0-94.0); MEAN CORPUSCULAR HGB 29.3 pg (27.0-31.0); MEAN CORPUSCULAR HGB CONC 31.7 g/dl (33.0-37.0); MEAN PLATELET VOLUME 9.6 fl (9.6-12.3); MONO # 0.4 10*3/uL (0.1-1.0); MONO % 6.7 % (3.0-9.0); NEUT # 3.8 10*3/uL (2.3-7.9); NEUT % 63.5 % (47.0-73.0); PLATELET COUNT AUTOMATED 272 10*3/uL (130-400); RED BLOOD COUNT 3.58 10*6/uL (4.50-5.90); RED CELL DISTRI WIDTH 13.5 % (0-14.5)
[2021-05-15 20:22] LABS: ALBUMIN 2.5 gm/dl (3.1-4.5); ALKALINE PHOSPHATASE 184 U/L (45-117); BUN 34 mg/dl (7-24); CHLORIDE 108 mmol/L (98-107); CREATININE 0.86 mg/dL (0.70-1.30); POTASSIUM 4.1 mmol/L (3.5-5.1); SGOT/AST 10 IU/L (3-35); SGPT/ALT 17 U/L (12-78); SODIUM 136 mmol/L (136-145); TOTAL PROTEIN 6.8 gm/dL (6.4-8.2)
[2021-05-15 20:24] LABS: TROPONIN I < 0.015 ng/ml (<0.045)
[2021-05-15 23:10] LABS: BILIRUBIN Negative (Negative); BLOOD Trace-Lysed (Negative); CLARITY Turbid (Clear); COLOR Yellow (Yellow); GLUCOSE Negative (Negative); KETONE Negative (Negative); LEUKO ESTERASE 3+ (Negative); NITRITE Negative (Negative); PH 7.5 (4.5-8.0); UROBILINOGEN 0.2 E.U./dl (0.0-1.0)
[2021-05-15 23:31] LABS: WBC TNTC wbc/hpf (0-5)
[2021-05-15] MEDS ORDERED: CEFUROXIME AXE500 MG PO (23:38)
== END 2021-05-16 00:24 | disposition home or self-care (01) ==
LOC: ED 19:11
PROVIDERS: Physician Assistant
DX: N39.0 Urinary tract infection, site not specified (principal); R05.9 Cough, unspecified; Z88.1 Allergy status to other antibiotic agents; Z88.6 Allergy status to analgesic agent; Z91.040 Latex allergy status; Z79.899 Other long term (current) drug therapy

== ENCOUNTER 2021-06-17 10:23 | Emergency (ER) | payer MEDICAID ==
[~2021-06-17] VITALS: Ht 149.8 cm; Wt 56.2 kg
[2021-06-17 11:21] LABS: ALBUMIN 2.5 gm/dl (3.1-4.5); ALKALINE PHOSPHATASE 181 U/L (45-117); BUN 38 mg/dl (7-24); CHLORIDE 103 mmol/L (98-107); CREATININE 1.16 mg/dL (0.70-1.30); POTASSIUM 4.2 mmol/L (3.5-5.1); SGOT/AST 7 IU/L (3-35); SGPT/ALT 15 U/L (12-78); SODIUM 134 mmol/L (136-145); TOTAL PROTEIN 7.1 gm/dL (6.4-8.2)
[2021-06-17 11:47] LABS: BASO % 0.3 % (0.0-1.0); EOS # 0.1 10*3/uL (0.0-0.4); EOS % 2.3 % (1.0-4.0); HEMATOCRIT 34.7 % (42.0-52.0); LYMPH # 1.6 10*3/uL (1.3-4.4); LYMPH % 27.7 % (27.0-41.0); MEAN CELL VOLUME 89.7 fl (80.0-94.0); MEAN CORPUSCULAR HGB 28.7 pg (27.0-31.0); MEAN PLATELET VOLUME 9.9 fl (9.6-12.3); MONO # 0.5 10*3/uL (0.1-1.0); MONO % 8.4 % (3.0-9.0); NEUT # 3.5 10*3/uL (2.3-7.9); NEUT % 60.8 % (47.0-73.0); PLATELET COUNT AUTOMATED 255 10*3/uL (130-400); RED BLOOD COUNT 3.87 10*6/uL (4.50-5.90); RED CELL DISTRI WIDTH 12.9 % (0-14.5); WHITE BLOOD COUNT 5.7 10*3/uL (4.8-10.8)
== END 2021-06-17 14:30 | disposition home or self-care (01) ==
LOC: ED 10:23
PROVIDERS: Emergency Medicine
DX: L89.893 Pressure ulcer of other site, stage 3 (principal); Z88.1 Allergy status to other antibiotic agents; Z88.8 Allergy status to other drugs, medicaments and biological substances; Z88.6 Allergy status to analgesic agent; Z91.040 Latex allergy status; Z79.899 Other long term (current) drug therapy

== ENCOUNTER 2021-06-24 12:56 | Emergency (ER) | payer MEDICAID ==
[~2021-06-24] VITALS: Ht 147.3 cm; Wt 68.0 kg
== END 2021-06-24 17:46 | disposition home or self-care (01) ==
LOC: ED 12:56
DX: N50.82 Scrotal pain (principal); Z88.1 Allergy status to other antibiotic agents; Z91.040 Latex allergy status; Z88.2 Allergy status to sulfonamides; Z88.6 Allergy status to analgesic agent; Z88.8 Allergy status to other drugs, medicaments and biological substances; Z79.899 Other long term (current) drug therapy

== ENCOUNTER 2021-07-25 19:14 | Emergency (ER) | payer MEDICAID ==
[2021-07-25 20:43] LABS: BASO % 0.4 % (0.0-1.0); EOS # 0.1 10*3/uL (0.0-0.4); EOS % 2.6 % (1.0-4.0); HEMATOCRIT 37.6 % (42.0-52.0); LYMPH # 1.4 10*3/uL (1.3-4.4); LYMPH % 25.4 % (27.0-41.0); MEAN CELL VOLUME 92.4 fl (80.0-94.0); MEAN CORPUSCULAR HGB 28.5 pg (27.0-31.0); MEAN CORPUSCULAR HGB CONC 30.9 g/dl (33.0-37.0); MEAN PLATELET VOLUME 9.5 fl (9.6-12.3); MONO # 0.4 10*3/uL (0.1-1.0); MONO % 6.4 % (3.0-9.0); NEUT # 3.5 10*3/uL (2.3-7.9); NEUT % 64.5 % (47.0-73.0); PLATELET COUNT AUTOMATED 250 10*3/uL (130-400); RED BLOOD COUNT 4.07 10*6/uL (4.50-5.90); RED CELL DISTRI WIDTH 13.2 % (0-14.5); WHITE BLOOD COUNT 5.4 10*3/uL (4.8-10.8)
[2021-07-25 20:58] LABS: ALBUMIN 2.4 gm/dl (3.1-4.5); ALKALINE PHOSPHATASE 177 U/L (45-117); BUN 36 mg/dl (7-24); CHLORIDE 109 mmol/L (98-107); CREATININE 1.26 mg/dL (0.70-1.30); LIPASE 152 U/L (73-393); POTASSIUM 4.9 mmol/L (3.5-5.1); SGOT/AST 14 IU/L (3-35); SGPT/ALT 15 U/L (12-78); SODIUM 137 mmol/L (136-145); TOTAL PROTEIN 6.6 gm/dL (6.4-8.2)
[2021-07-25 22:36] LABS: BILIRUBIN Negative (Negative); BLOOD 1+ (Negative); CLARITY Turbid (Clear); COLOR Yellow (Yellow); GLUCOSE Trace (Negative); KETONE Negative (Negative); LEUKO ESTERASE 3+ (Negative); NITRITE Negative (Negative); PH 7.5 (4.5-8.0); UROBILINOGEN 0.2 E.U./dl (0.0-1.0)
[2021-07-25 22:38] LABS: BACTERIA 4+
[2021-07-25] MEDS ORDERED: OMNICEF300 MG PO (23:14)
== END 2021-07-26 09:00 | disposition home or self-care (01) ==
LOC: ED 19:14
PROVIDERS: Physician Assistant
DX: K59.00 Constipation, unspecified (principal); N39.0 Urinary tract infection, site not specified

== ENCOUNTER 2021-10-01 13:45 | Emergency (ER) | payer MEDICAID ==
[~2021-10-01] VITALS: Ht 149.8 cm; Wt 72.6 kg
[~2021-10-01 13:45] MED LIST changes: +OMNICEF300 MG PO
[2021-10-01 14:59] LABS: BASO % 0.4 % (0.0-1.0); EOS # 0.1 10*3/uL (0.0-0.4); EOS % 2.4 % (1.0-4.0); HEMATOCRIT 34.4 % (42.0-52.0); LYMPH # 1.4 10*3/uL (1.3-4.4); MEAN CELL VOLUME 86.9 fl (80.0-94.0); MEAN CORPUSCULAR HGB 28.5 pg (27.0-31.0); MEAN CORPUSCULAR HGB CONC 32.8 g/dl (33.0-37.0); MEAN PLATELET VOLUME 9.4 fl (9.6-12.3); MONO # 0.5 10*3/uL (0.1-1.0); MONO % 9.4 % (3.0-9.0); NEUT # 3.1 10*3/uL (2.3-7.9); PLATELET COUNT AUTOMATED 234 10*3/uL (130-400); RED BLOOD COUNT 3.96 10*6/uL (4.50-5.90); RED CELL DISTRI WIDTH 13.9 % (0-14.5); WHITE BLOOD COUNT 5.1 10*3/uL (4.8-10.8)
[2021-10-01 15:55] LABS: ALKALINE PHOSPHATASE 193 U/L (45-117); BUN 33 mg/dl (7-24); CHLORIDE 105 mmol/L (98-107); CREATININE 1.09 mg/dL (0.70-1.30); POTASSIUM 4.6 mmol/L (3.5-5.1); SGOT/AST 11 IU/L (3-35); SGPT/ALT 16 U/L (12-78); SODIUM 134 mmol/L (136-145); TOTAL PROTEIN 6.7 gm/dL (6.4-8.2)
== END 2021-10-01 19:46 | disposition home or self-care (01) ==
LOC: ED 13:45
PROVIDERS: Emergency Medicine
DX: L89.893 Pressure ulcer of other site, stage 3 (principal); Z88.1 Allergy status to other antibiotic agents; Z88.8 Allergy status to other drugs, medicaments and biological substances; Z91.040 Latex allergy status; Z79.899 Other long term (current) drug therapy; Z98.890 Other specified postprocedural states

== ENCOUNTER 2021-11-18 01:28 | Emergency (ER) | payer MEDICAID ==
[2021-11-18 01:51] LABS: BASO % 0.3 % (0.0-1.0); EOS # 0.1 10*3/uL (0.0-0.4); EOS % 1.8 % (1.0-4.0); HEMATOCRIT 31.9 % (42.0-52.0); LYMPH # 1.7 10*3/uL (1.3-4.4); LYMPH % 28.3 % (27.0-41.0); MEAN CELL VOLUME 82.2 fl (80.0-94.0); MEAN CORPUSCULAR HGB 27.8 pg (27.0-31.0); MEAN CORPUSCULAR HGB CONC 33.9 g/dl (33.0-37.0); MEAN PLATELET VOLUME 9.3 fl (9.6-12.3); MONO # 0.5 10*3/uL (0.1-1.0); MONO % 8.8 % (3.0-9.0); NEUT # 3.6 10*3/uL (2.3-7.9); NEUT % 60.1 % (47.0-73.0); PLATELET COUNT AUTOMATED 308 10*3/uL (130-400); RED BLOOD COUNT 3.88 10*6/uL (4.50-5.90); RED CELL DISTRI WIDTH 13.4 % (0-14.5)
[2021-11-18 02:02] LABS: ACT PARTIAL THROMBO TIME 28.6 SECONDS (20.0-32.1)
[2021-11-18 02:08] LABS: ALKALINE PHOSPHATASE 190 U/L (45-117); BUN 23 mg/dl (7-24); CHLORIDE 103 mmol/L (98-107); CREATININE 0.83 mg/dL (0.70-1.30); POTASSIUM 4.7 mmol/L (3.5-5.1); SGOT/AST 6 IU/L (3-35); SGPT/ALT 14 U/L (12-78); SODIUM 129 mmol/L (136-145); TOTAL PROTEIN 6.4 gm/dL (6.4-8.2)
== END 2021-11-18 08:30 | disposition home or self-care (01) ==
LOC: ED 01:28
PROVIDERS: Emergency Medicine
DX: R07.89 Other chest pain (principal); E11.65 Type 2 diabetes mellitus with hyperglycemia; Z90.49 Acquired absence of other specified parts of digestive tract; Z79.4 Long term (current) use of insulin; Z79.899 Other long term (current) drug therapy; Z88.1 Allergy status to other antibiotic agents; Z91.040 Latex allergy status; Z88.5 Allergy status to narcotic agent

== ENCOUNTER 2021-12-04 15:37 | Emergency (ER) | payer MEDICAID ==
[~2021-12-04] VITALS: Ht 149.8 cm; Wt 60.8 kg
[2021-12-04] MEDS ORDERED: CLINDAMYCIN HC300 MG PO (16:48)
== END 2021-12-04 17:27 | disposition home or self-care (01) ==
LOC: ED 15:37
DX: K08.89 Other specified disorders of teeth and supporting structures (principal); Z88.1 Allergy status to other antibiotic agents; Z91.040 Latex allergy status; Z88.8 Allergy status to other drugs, medicaments and biological substances; Z79.899 Other long term (current) drug therapy; Z90.49 Acquired absence of other specified parts of digestive tract

== ENCOUNTER 2022-02-01 16:03 | Inpatient (IN) | payer MEDICAID ==
[~2022-02-01] VITALS: Ht 149.8 cm; Wt 57.2 kg
[2022-02-01 04:44] VITALS: BP 112/62
[~2022-02-01 16:03] MED LIST changes: +CEFDINIR300 MG PO; +CIPRO IV; +DIFLUCAN150 MG PO; +ISOTON GEN100 MG/50 IV; +MIRALAX POWDER17 G1 PO; +SENNA8.6 MG PO; +SEPTDS PO
[2022-02-01 16:07] VITALS: BP 91/61
[2022-02-01 16:43] VITALS: BP 113/64
[2022-02-01 17:06] LABS: CREATININE 1.61 mg/dL (0.70-1.30); POTASSIUM 3.7 mmol/L (3.5-5.1); TOTAL PROTEIN 6.6 gm/dL (6.4-8.2)
[2022-02-01 17:12] LABS: BASO % 0.3 % (0.0-1.0); EOS # 0.2 10*3/uL (0.0-0.4); EOS % 2.7 % (1.0-4.0); HEMATOCRIT 28.6 % (42.0-52.0); LYMPH # 1.9 10*3/uL (1.3-4.4); LYMPH % 21.5 % (27.0-41.0); MEAN CELL VOLUME 89.4 fl (80.0-94.0); MEAN CORPUSCULAR HGB 28.8 pg (27.0-31.0); MEAN CORPUSCULAR HGB CONC 32.2 g/dl (33.0-37.0); MEAN PLATELET VOLUME 8.8 fl (9.6-12.3); MONO # 0.8 10*3/uL (0.1-1.0); NEUT # 5.7 10*3/uL (2.3-7.9); NEUT % 65.2 % (47.0-73.0); PLATELET COUNT AUTOMATED 294 10*3/uL (130-400); RED CELL DISTRI WIDTH 15.3 % (0-14.5); WHITE BLOOD COUNT 8.7 10*3/uL (4.8-10.8)
[2022-02-01 17:23] LABS: ACT PARTIAL THROMBO TIME 32.9 SECONDS (20.0-32.1); INTERNATIONAL NORM RATIO 1.1 (2.0-3.5)
[2022-02-01 20:00] VITALS: BP 92/63
[2022-02-01 22:32] VITALS: BP 122/62
[2022-02-02] VITALS (16 sets, daily range): BP systolic 75–112; BP diastolic 52–76
[2022-02-02 03:28] LABS: BILIRUBIN Negative (Negative); BLOOD Negative (Negative); CLARITY Cloudy (Clear); COLOR Yellow (Yellow); GLUCOSE 2+ (Negative); KETONE Negative (Negative); LEUKO ESTERASE Negative (Negative); NITRITE Negative (Negative); UROBILINOGEN 0.2 E.U./dl (0.0-1.0)
[2022-02-02 03:59] LABS: BACTERIA 2+; YEAST 2+
[2022-02-02 04:00] LABS: RBC 0-2 rbc/hpf (0-2); WBC 0-2 wbc/hpf (0-5)
[2022-02-02 06:08] LABS: BASO % 0.1 % (0.0-1.0); EOS # 0.2 10*3/uL (0.0-0.4); EOS % 2.8 % (1.0-4.0); HEMATOCRIT 29.1 % (42.0-52.0); LYMPH # 1.9 10*3/uL (1.3-4.4); LYMPH % 22.1 % (27.0-41.0); MEAN CELL VOLUME 90.1 fl (80.0-94.0); MEAN CORPUSCULAR HGB 28.5 pg (27.0-31.0); MEAN CORPUSCULAR HGB CONC 31.6 g/dl (33.0-37.0); MONO # 0.7 10*3/uL (0.1-1.0); MONO % 8.4 % (3.0-9.0); NEUT # 5.5 10*3/uL (2.3-7.9); NEUT % 64.9 % (47.0-73.0); PLATELET COUNT AUTOMATED 282 10*3/uL (130-400); RED BLOOD COUNT 3.23 10*6/uL (4.50-5.90); RED CELL DISTRI WIDTH 14.9 % (0-14.5); WHITE BLOOD COUNT 8.5 10*3/uL (4.8-10.8)
[2022-02-02 06:25] LABS: CHLORIDE 110 mmol/L (98-107); POTASSIUM 3.6 mmol/L (3.5-5.1); SODIUM 138 mmol/L (136-145)
[2022-02-02 06:38] LABS: ALKALINE PHOSPHATASE 144 U/L (45-117); BUN 29 mg/dl (7-24); CHOLESTEROL 94 mg/dL (<200); CREATININE 1.11 mg/dL (0.70-1.30); LDL CHOLESTEROL 36 mg/dL (9-159); SGOT/AST 8 IU/L (3-35); SGPT/ALT 7 U/L (12-78); TOTAL PROTEIN 6.1 gm/dL (6.4-8.2); TRIGLYCERIDES 105 mg/dl (<150)
[2022-02-02 07:38] LABS: VITAMIN D, 25-HYDROXY 28.4 ng/mL (30-100)
[2022-02-03] VITALS: BP 92/62
[2022-02-03 04:00] VITALS: BP 105/60
[2022-02-03 05:00] LABS: BUN 25 mg/dl (7-24); CHLORIDE 107 mmol/L (98-107); CREATININE 0.91 mg/dL (0.70-1.30); POTASSIUM 3.3 mmol/L (3.5-5.1); SODIUM 137 mmol/L (136-145)
[2022-02-03 06:11] LABS: BASO % 0.3 % (0.0-1.0); EOS # 0.5 10*3/uL (0.0-0.4); HEMATOCRIT 24.8 % (42.0-52.0); LYMPH # 2.1 10*3/uL (1.3-4.4); LYMPH % 30.8 % (27.0-41.0); MEAN CELL VOLUME 89.5 fl (80.0-94.0); MEAN CORPUSCULAR HGB 28.9 pg (27.0-31.0); MEAN CORPUSCULAR HGB CONC 32.3 g/dl (33.0-37.0); MEAN PLATELET VOLUME 9.4 fl (9.6-12.3); MONO # 0.8 10*3/uL (0.1-1.0); MONO % 12.5 % (3.0-9.0); NEUT # 3.2 10*3/uL (2.3-7.9); NEUT % 48.2 % (47.0-73.0); PLATELET COUNT AUTOMATED 272 10*3/uL (130-400); RED BLOOD COUNT 2.77 10*6/uL (4.50-5.90); RED CELL DISTRI WIDTH 15.2 % (0-14.5); WHITE BLOOD COUNT 6.7 10*3/uL (4.8-10.8)
[2022-02-03 08:00] VITALS: BP 102/61
[2022-02-03 12:00] VITALS: BP 95/58
[2022-02-03 16:00] VITALS: BP 120/75
[2022-02-03 20:00] VITALS: BP 104/61
[2022-02-04] VITALS: BP 109/62
[2022-02-04 04:00] VITALS: BP 118/68
[2022-02-04 05:14] LABS: BUN 24 mg/dl (7-24); CHLORIDE 109 mmol/L (98-107); POTASSIUM 4.2 mmol/L (3.5-5.1); SODIUM 141 mmol/L (136-145)
[2022-02-04 05:17] LABS: ALKALINE PHOSPHATASE 130 U/L (45-117); CREATININE 0.89 mg/dL (0.70-1.30); SGOT/AST 10 IU/L (3-35); SGPT/ALT 10 U/L (12-78); TOTAL PROTEIN 5.9 gm/dL (6.4-8.2)
[2022-02-04 06:15] LABS: BASO % 0.1 % (0.0-1.0); EOS # 0.3 10*3/uL (0.0-0.4); EOS % 3.8 % (1.0-4.0); HEMATOCRIT 25.7 % (42.0-52.0); LYMPH # 1.7 10*3/uL (1.3-4.4); LYMPH % 20.9 % (27.0-41.0); MEAN CELL VOLUME 89.9 fl (80.0-94.0); MEAN CORPUSCULAR HGB 28.7 pg (27.0-31.0); MEAN CORPUSCULAR HGB CONC 31.9 g/dl (33.0-37.0); MEAN PLATELET VOLUME 9.2 fl (9.6-12.3); MONO # 0.9 10*3/uL (0.1-1.0); MONO % 11.3 % (3.0-9.0); NEUT # 5.1 10*3/uL (2.3-7.9); NEUT % 63.4 % (47.0-73.0); PLATELET COUNT AUTOMATED 270 10*3/uL (130-400); RED BLOOD COUNT 2.86 10*6/uL (4.50-5.90); RED CELL DISTRI WIDTH 15.1 % (0-14.5)
[2022-02-04 08:00] VITALS: BP 108/54
[2022-02-04 12:00] VITALS: BP 108/69
[2022-02-04 16:00] VITALS: BP 95/62
[2022-02-04 21:03] VITALS: BP 135/52
[2022-02-05] VITALS: BP 140/60
[2022-02-05 06:11] LABS: BASO % 0.2 % (0.0-1.0); EOS # 0.3 10*3/uL (0.0-0.4); EOS % 3.6 % (1.0-4.0); HEMATOCRIT 25.9 % (42.0-52.0); MEAN CELL VOLUME 89.6 fl (80.0-94.0); MEAN CORPUSCULAR HGB 28.7 pg (27.0-31.0); MEAN PLATELET VOLUME 9.3 fl (9.6-12.3); MONO % 10.9 % (3.0-9.0); NEUT % 63.7 % (47.0-73.0); PLATELET COUNT AUTOMATED 267 10*3/uL (130-400); RED BLOOD COUNT 2.89 10*6/uL (4.50-5.90); WHITE BLOOD COUNT 9.4 10*3/uL (4.8-10.8)
[2022-02-05 06:13] LABS: BUN 23 mg/dl (7-24); CHLORIDE 107 mmol/L (98-107); CREATININE 0.91 mg/dL (0.70-1.30); POTASSIUM 4.2 mmol/L (3.5-5.1); SODIUM 139 mmol/L (136-145)
[2022-02-05 08:00] VITALS: BP 110/69
[2022-02-05 12:00] VITALS: BP 121/70
[2022-02-05 16:00] VITALS: BP 115/66
[2022-02-05 20:00] VITALS: BP 95/63
[2022-02-06] VITALS: BP 78/51
[2022-02-06 06:30] LABS: ALKALINE PHOSPHATASE 112 U/L (45-117); BUN 22 mg/dl (7-24); CHLORIDE 107 mmol/L (98-107); CREATININE 0.94 mg/dL (0.70-1.30); POTASSIUM 4.3 mmol/L (3.5-5.1); SGOT/AST 16 IU/L (3-35); SGPT/ALT 12 U/L (12-78); SODIUM 140 mmol/L (136-145); TOTAL PROTEIN 6.1 gm/dL (6.4-8.2)
[2022-02-06 06:38] LABS: BASO % 0.3 % (0.0-1.0); EOS # 0.2 10*3/uL (0.0-0.4); EOS % 3.3 % (1.0-4.0); HEMATOCRIT 25.5 % (42.0-52.0); LYMPH # 1.9 10*3/uL (1.3-4.4); LYMPH % 28.7 % (27.0-41.0); MEAN CELL VOLUME 90.7 fl (80.0-94.0); MEAN CORPUSCULAR HGB 28.5 pg (27.0-31.0); MEAN CORPUSCULAR HGB CONC 31.4 g/dl (33.0-37.0); MEAN PLATELET VOLUME 9.3 fl (9.6-12.3); MONO # 0.8 10*3/uL (0.1-1.0); MONO % 11.4 % (3.0-9.0); NEUT # 3.7 10*3/uL (2.3-7.9); NEUT % 55.4 % (47.0-73.0); PLATELET COUNT AUTOMATED 295 10*3/uL (130-400); RED BLOOD COUNT 2.81 10*6/uL (4.50-5.90); RED CELL DISTRI WIDTH 15.3 % (0-14.5); WHITE BLOOD COUNT 6.7 10*3/uL (4.8-10.8)
[2022-02-06 08:00] VITALS: BP 109/68
[2022-02-06 12:00] VITALS: BP 98/52
[2022-02-06 16:00] VITALS: BP 100/50
[2022-02-06 20:00] VITALS: BP 97/54
[2022-02-07] VITALS: BP 106/63
[2022-02-07 08:00] VITALS: BP 103/59
[2022-02-07 12:00] VITALS: BP 113/66
[2022-02-07 16:00] VITALS: BP 135/69
[2022-02-07 20:00] VITALS: BP 112/71
[2022-02-08] VITALS: BP 115/70
[2022-02-08 06:23] LABS: BUN 27 mg/dl (7-24); CHLORIDE 110 mmol/L (98-107); POTASSIUM 4.8 mmol/L (3.5-5.1); SODIUM 140 mmol/L (136-145)
[2022-02-08 06:35] LABS: BASO % 0.3 % (0.0-1.0); EOS # 0.2 10*3/uL (0.0-0.4); EOS % 3.1 % (1.0-4.0); HEMATOCRIT 26.4 % (42.0-52.0); LYMPH # 2.2 10*3/uL (1.3-4.4); LYMPH % 31.5 % (27.0-41.0); MEAN CORPUSCULAR HGB 28.6 pg (27.0-31.0); MEAN CORPUSCULAR HGB CONC 31.4 g/dl (33.0-37.0); MONO % 14.2 % (3.0-9.0); NEUT # 3.4 10*3/uL (2.3-7.9); NEUT % 50.2 % (47.0-73.0); PLATELET COUNT AUTOMATED 368 10*3/uL (130-400); RED CELL DISTRI WIDTH 15.1 % (0-14.5); WHITE BLOOD COUNT 6.8 10*3/uL (4.8-10.8)
[2022-02-08 06:36] LABS: ALKALINE PHOSPHATASE 108 U/L (45-117); SGOT/AST 14 IU/L (3-35); SGPT/ALT 12 U/L (12-78); TOTAL PROTEIN 6.5 gm/dL (6.4-8.2)
[2022-02-08 08:00] VITALS: BP 106/54
[2022-02-08 12:00] VITALS: BP 98/57
[2022-02-08 16:00] VITALS: BP 109/75
[2022-02-08 20:00] VITALS: BP 101/73
[2022-02-09] VITALS: BP 115/62
[2022-02-09 06:08] LABS: BUN 31 mg/dl (7-24); CHLORIDE 109 mmol/L (98-107); CREATININE 1.02 mg/dL (0.70-1.30); POTASSIUM 4.9 mmol/L (3.5-5.1); SODIUM 138 mmol/L (136-145)
[2022-02-09 06:27] LABS: BASO % 0.2 % (0.0-1.0); EOS # 0.2 10*3/uL (0.0-0.4); EOS % 3.7 % (1.0-4.0); HEMATOCRIT 24.6 % (42.0-52.0); LYMPH # 1.6 10*3/uL (1.3-4.4); LYMPH % 26.2 % (27.0-41.0); MEAN CELL VOLUME 92.8 fl (80.0-94.0); MEAN CORPUSCULAR HGB 28.7 pg (27.0-31.0); MEAN CORPUSCULAR HGB CONC 30.9 g/dl (33.0-37.0); MONO # 0.8 10*3/uL (0.1-1.0); MONO % 13.3 % (3.0-9.0); NEUT # 3.4 10*3/uL (2.3-7.9); NEUT % 55.8 % (47.0-73.0); PLATELET COUNT AUTOMATED 377 10*3/uL (130-400); RED BLOOD COUNT 2.65 10*6/uL (4.50-5.90); RED CELL DISTRI WIDTH 15.1 % (0-14.5)
[2022-02-09 08:00] VITALS: BP 105/68
[2022-02-09 12:00] VITALS: BP 110/70
[2022-02-09] MEDS ORDERED: XARE15TA PO (13:26)
[2022-02-09] MEDS ORDERED: Humalog SQ (13:26)
[2022-02-09] MEDS ORDERED: LANTUS SOL100 UNIT/1 SQ (13:26)
[2022-02-09] MEDS ORDERED: PREMIERPRO RX ME1 GM IV (13:26)
[2022-02-09] MEDS ORDERED: MAGNESIUM OXID400 MG PO (13:26)
== END 2022-02-09 17:40 | DRG 720 ==
LOC: ED 16:03 → EDHOLD 22:08 → ICCU 22:08 → 5E 02-02 01:06 → ICCU 02-02 04:38 → 5E 02-04 18:12
PROVIDERS: Emergency Medicine; Family Medicine; Internal Medicine; ADMIT Family Medicine; ATTEND Family Medicine
PROC: B54MZZA Ultrasonography of Right Upper Extremity Veins, Guidance (ICD-10-PCS; principal; 2022-02-01)
PROC: 05HY33Z Insertion of Infusion Device into Upper Vein, Percutaneous Approach (ICD-10-PCS; 2022-02-01)
DX: A41.9 Sepsis, unspecified organism (principal); N17.0 Acute kidney failure with tubular necrosis; E11.65 Type 2 diabetes mellitus with hyperglycemia; L89.150 Pressure ulcer of sacral region, unstageable; E87.1 Hypo-osmolality and hyponatremia; E86.0 Dehydration; E43 Unspecified severe protein-calorie malnutrition; G82.20 Paraplegia, unspecified; E11.40 Type 2 diabetes mellitus with diabetic neuropathy, unspecified; D64.9 Anemia, unspecified; E83.39 Other disorders of phosphorus metabolism; E83.42 Hypomagnesemia; L89.223 Pressure ulcer of left hip, stage 3; D63.8 Anemia in other chronic diseases classified elsewhere; R65.20 Severe sepsis without septic shock; B96.20 Unspecified Escherichia coli [E. coli] as the cause of diseases classified elsewhere; S80.12XA Contusion of left lower leg, initial encounter; S80.11XA Contusion of right lower leg, initial encounter; Z88.2 Allergy status to sulfonamides; Z79.4 Long term (current) use of insulin; Z88.8 Allergy status to other drugs, medicaments and biological substances; Z88.1 Allergy status to other antibiotic agents; Z91.040 Latex allergy status; Z87.81 Personal history of (healed) traumatic fracture; Z90.49 Acquired absence of other specified parts of digestive tract; Z83.3 Family history of diabetes mellitus; X58.XXXA Exposure to other specified factors, initial encounter; Y93.89 Activity, other specified; Y92.89 Other specified places as the place of occurrence of the external cause; Y99.8 Other external cause status; Z68.25 Body mass index [BMI] 25.0-25.9, adult

== ENCOUNTER → 2022-03-01 | Outpatient (CLI) | payer MEDICAID ==
[~2022-03-01] MED LIST changes: +Humalog SQ; +MAGNESIUM OXID400 MG PO; +PREMIERPRO RX ME1 GM IV
== END | disposition home or self-care (01) ==
LOC: WOUNDCARE 01:22
PROVIDERS: ATTEND Nurse Practitioner Family
DX: L89.224 Pressure ulcer of left hip, stage 4 (principal); L89.134 Pressure ulcer of right lower back, stage 4; L89.212 Pressure ulcer of right hip, stage 2; E10.40 Type 1 diabetes mellitus with diabetic neuropathy, unspecified; E10.69 Type 1 diabetes mellitus with other specified complication; M86.352 Chronic multifocal osteomyelitis, left femur; M86.351 Chronic multifocal osteomyelitis, right femur; G82.20 Paraplegia, unspecified; G43.909 Migraine, unspecified, not intractable, without status migrainosus; Z79.4 Long term (current) use of insulin; Z87.891 Personal history of nicotine dependence; Z90.49 Acquired absence of other specified parts of digestive tract

== ENCOUNTER 2022-03-06 12:44 | Emergency (ER) | payer MEDICAID ==
[~2022-03-06] VITALS: Ht 149.8 cm; Wt 60.3 kg
[2022-03-06 14:18] LABS: BASO % 0.3 % (0.0-1.0); EOS # 0.2 10*3/uL (0.0-0.4); EOS % 2.7 % (1.0-4.0); HEMATOCRIT 30.8 % (42.0-52.0); LYMPH # 2.2 10*3/uL (1.3-4.4); LYMPH % 25.3 % (27.0-41.0); MEAN CELL VOLUME 94.2 fl (80.0-94.0); MEAN CORPUSCULAR HGB 30.3 pg (27.0-31.0); MEAN CORPUSCULAR HGB CONC 32.1 g/dl (33.0-37.0); MEAN PLATELET VOLUME 9.4 fl (9.6-12.3); MONO # 0.8 10*3/uL (0.1-1.0); MONO % 9.2 % (3.0-9.0); NEUT # 5.4 10*3/uL (2.3-7.9); PLATELET COUNT AUTOMATED 320 10*3/uL (130-400); RED BLOOD COUNT 3.27 10*6/uL (4.50-5.90); RED CELL DISTRI WIDTH 15.7 % (0-14.5); WHITE BLOOD COUNT 8.7 10*3/uL (4.8-10.8)
[2022-03-06 14:35] LABS: ALKALINE PHOSPHATASE 172 U/L (45-117); BUN 44 mg/dl (7-24); CHLORIDE 106 mmol/L (98-107); CREATININE 1.13 mg/dL (0.70-1.30); POTASSIUM 4.2 mmol/L (3.5-5.1); SGOT/AST 13 IU/L (3-35); SGPT/ALT 14 U/L (12-78); SODIUM 133 mmol/L (136-145); TOTAL PROTEIN 6.4 gm/dL (6.4-8.2)
== END 2022-03-06 16:12 | disposition home or self-care (01) ==
LOC: ED 12:44
PROVIDERS: Nurse Practitioner Family
DX: L89.151 Pressure ulcer of sacral region, stage 1 (principal); Z79.899 Other long term (current) drug therapy; Z88.1 Allergy status to other antibiotic agents; Z88.2 Allergy status to sulfonamides; Z91.040 Latex allergy status

== ENCOUNTER 2022-03-11 13:48 | Emergency (ER) | payer MEDICAID ==
[~2022-03-11] VITALS: Ht 149.8 cm; Wt 57.6 kg
[2022-03-11 14:20] LABS: BASO % 0.3 % (0.0-1.0); EOS # 0.2 10*3/uL (0.0-0.4); EOS % 2.6 % (1.0-4.0); LYMPH # 2.2 10*3/uL (1.3-4.4); LYMPH % 30.4 % (27.0-41.0); MEAN CELL VOLUME 92.1 fl (80.0-94.0); MEAN CORPUSCULAR HGB 29.5 pg (27.0-31.0); MEAN CORPUSCULAR HGB CONC 32.1 g/dl (33.0-37.0); MEAN PLATELET VOLUME 8.9 fl (9.6-12.3); MONO # 0.5 10*3/uL (0.1-1.0); MONO % 6.9 % (3.0-9.0); NEUT # 4.3 10*3/uL (2.3-7.9); NEUT % 59.5 % (47.0-73.0); PLATELET COUNT AUTOMATED 335 10*3/uL (130-400); RED BLOOD COUNT 3.15 10*6/uL (4.50-5.90); WHITE BLOOD COUNT 7.2 10*3/uL (4.8-10.8)
== END 2022-03-11 14:52 | disposition home or self-care (01) ==
LOC: ED 13:48
PROVIDERS: Nurse Practitioner Family
DX: T85.628A Displacement of other specified internal prosthetic devices, implants and grafts, initial encounter (principal); L89.109 Pressure ulcer of unspecified part of back, unspecified stage; Z88.1 Allergy status to other antibiotic agents; Z88.2 Allergy status to sulfonamides; Z91.040 Latex allergy status; Z88.8 Allergy status to other drugs, medicaments and biological substances; Z79.899 Other long term (current) drug therapy; Z90.49 Acquired absence of other specified parts of digestive tract; Y92.89 Other specified places as the place of occurrence of the external cause

== ENCOUNTER 2022-03-17 16:22 | Emergency (ER) | payer MEDICAID | END 2022-03-17 22:15 | disposition home or self-care (01) | LOC: ED 16:22 | DX: I87.2 Venous insufficiency (chronic) (peripheral) (principal); Z88.1 Allergy status to other antibiotic agents; Z91.040 Latex allergy status; Z88.8 Allergy status to other drugs, medicaments and biological substances; Z88.2 Allergy status to sulfonamides; Z79.899 Other long term (current) drug therapy; Z90.49 Acquired absence of other specified parts of digestive tract; Z98.890 Other specified postprocedural states ==

== ENCOUNTER → 2022-03-17 | Outpatient (CLI) | payer MEDICAID | END | disposition home or self-care (01) | LOC: WOUNDCARE 01:55 | PROVIDERS: ATTEND Nurse Practitioner Family | DX: L89.224 Pressure ulcer of left hip, stage 4 (principal); L89.134 Pressure ulcer of right lower back, stage 4; E11.40 Type 2 diabetes mellitus with diabetic neuropathy, unspecified; E11.69 Type 2 diabetes mellitus with other specified complication; M86.351 Chronic multifocal osteomyelitis, right femur; M86.352 Chronic multifocal osteomyelitis, left femur; M86.3 Chronic multifocal osteomyelitis; Z87.891 Personal history of nicotine dependence ==

== ENCOUNTER 2022-03-19 17:53 | Emergency (ER) | payer MEDICAID ==
[~2022-03-19] VITALS: Ht 149.8 cm; Wt 59.0 kg
== END 2022-03-19 20:39 | disposition home or self-care (01) ==
LOC: ED 17:53
DX: T82.9XXA Unspecified complication of cardiac and vascular prosthetic device, implant and graft, initial encounter (principal); Z88.1 Allergy status to other antibiotic agents; Z91.040 Latex allergy status; Z88.8 Allergy status to other drugs, medicaments and biological substances; Z79.899 Other long term (current) drug therapy; Z90.49 Acquired absence of other specified parts of digestive tract; Y92.89 Other specified places as the place of occurrence of the external cause

== ENCOUNTER 2022-03-29 06:02 | Inpatient (IN) | payer MEDICAID ==
[~2022-03-29] VITALS: Ht 149.9 cm; Wt 58.1 kg
[2022-03-29 06:14] VITALS: BP 101/63
[2022-03-29 07:40] LABS: BASO % 0.2 % (0.0-1.0); EOS # 0.1 10*3/uL (0.0-0.4); EOS % 2.4 % (1.0-4.0); HEMATOCRIT 32.4 % (42.0-52.0); LYMPH # 1.5 10*3/uL (1.3-4.4); LYMPH % 32.9 % (27.0-41.0); MEAN CELL VOLUME 87.6 fl (80.0-94.0); MEAN CORPUSCULAR HGB 29.2 pg (27.0-31.0); MEAN CORPUSCULAR HGB CONC 33.3 g/dl (33.0-37.0); MEAN PLATELET VOLUME 9.3 fl (9.6-12.3); MONO # 0.4 10*3/uL (0.1-1.0); MONO % 8.1 % (3.0-9.0); NEUT # 2.6 10*3/uL (2.3-7.9); PLATELET COUNT AUTOMATED 300 10*3/uL (130-400); RED CELL DISTRI WIDTH 13.2 % (0-14.5); WHITE BLOOD COUNT 4.6 10*3/uL (4.8-10.8)
[2022-03-29 07:51] LABS: ALKALINE PHOSPHATASE 183 U/L (45-117); BUN 29 mg/dl (7-24); CHLORIDE 100 mmol/L (98-107); CREATININE 1.08 mg/dL (0.70-1.30); POTASSIUM 4.9 mmol/L (3.5-5.1); SGOT/AST 9 IU/L (3-35); SGPT/ALT 15 U/L (12-78); SODIUM 129 mmol/L (136-145); TOTAL PROTEIN 7.1 gm/dL (6.4-8.2)
[2022-03-29 12:41] LABS: BUN 31 mg/dl (7-24); CHLORIDE 112 mmol/L (98-107); CREATININE 1.01 mg/dL (0.70-1.30); SODIUM 137 mmol/L (136-145)
[2022-03-29 12:49] LABS: POTASSIUM 6.3 mmol/L (3.5-5.1)
[2022-03-29 13:15] VITALS: BP 104/75; BP 107/66
[2022-03-29 15:17] LABS: BUN 27 mg/dl (7-24); CHLORIDE 109 mmol/L (98-107); CREATININE 0.84 mg/dL (0.70-1.30); SODIUM 139 mmol/L (136-145)
[2022-03-29 15:40] LABS: POTASSIUM 4.1 mmol/L (3.5-5.1)
[2022-03-29 17:12] LABS: BUN 25 mg/dl (7-24); CHLORIDE 110 mmol/L (98-107); CREATININE 0.73 mg/dL (0.70-1.30); POTASSIUM 3.8 mmol/L (3.5-5.1); SODIUM 140 mmol/L (136-145)
[2022-03-29 18:46] VITALS: BP 100/55
[2022-03-29 20:54] LABS: BUN 27 mg/dl (7-24); CHLORIDE 110 mmol/L (98-107); CREATININE 0.84 mg/dL (0.70-1.30); SODIUM 140 mmol/L (136-145)
[2022-03-29 20:56] LABS: POTASSIUM 4.9 mmol/L (3.5-5.1)
[2022-03-30 00:48] VITALS: BP 100/55; BP 110/55
[2022-03-30 01:00] LABS: BUN 29 mg/dl (7-24); CHLORIDE 112 mmol/L (98-107); CREATININE 0.74 mg/dL (0.70-1.30); POTASSIUM 4.3 mmol/L (3.5-5.1); SODIUM 141 mmol/L (136-145)
[2022-03-30 06:34] LABS: BASO % 0.3 % (0.0-1.0); EOS # 0.2 10*3/uL (0.0-0.4); EOS % 2.7 % (1.0-4.0); HEMATOCRIT 29.4 % (42.0-52.0); LYMPH % 31.7 % (27.0-41.0); MEAN CORPUSCULAR HGB 29.6 pg (27.0-31.0); MEAN CORPUSCULAR HGB CONC 32.3 g/dl (33.0-37.0); MEAN PLATELET VOLUME 9.7 fl (9.6-12.3); MONO # 0.6 10*3/uL (0.1-1.0); MONO % 8.9 % (3.0-9.0); NEUT # 3.5 10*3/uL (2.3-7.9); NEUT % 55.9 % (47.0-73.0); PLATELET COUNT AUTOMATED 304 10*3/uL (130-400); RED BLOOD COUNT 3.21 10*6/uL (4.50-5.90); RED CELL DISTRI WIDTH 13.3 % (0-14.5); WHITE BLOOD COUNT 6.3 10*3/uL (4.8-10.8)
[2022-03-30 06:38] LABS: MEAN CELL VOLUME 91.6 fl (80.0-94.0)
[2022-03-30 06:45] LABS: BUN 31 mg/dl (7-24); CHLORIDE 109 mmol/L (98-107); CREATININE 0.73 mg/dL (0.70-1.30); POTASSIUM 4.1 mmol/L (3.5-5.1); SODIUM 139 mmol/L (136-145)
[2022-03-30 08:00] VITALS: BP 110/50
[2022-03-30 12:00] VITALS: BP 138/70
[2022-03-30] MEDS ORDERED: XARE20MG PO (12:44)
== END 2022-03-30 18:25 | disposition home or self-care (01) | DRG 420 ==
LOC: ED 06:02 → EDHOLD 09:21 → ICCU 18:17 → EDHOLD 21:48 → 4E 03-30 00:36
PROVIDERS: Emergency Medicine; Student in an Organized Health Care Education/Training Program; ADMIT Internal Medicine; ATTEND Internal Medicine
DX: E10.10 Type 1 diabetes mellitus with ketoacidosis without coma (principal); E43 Unspecified severe protein-calorie malnutrition; G82.50 Quadriplegia, unspecified; G82.20 Paraplegia, unspecified; D72.819 Decreased white blood cell count, unspecified; D64.9 Anemia, unspecified; E87.1 Hypo-osmolality and hyponatremia; L89.223 Pressure ulcer of left hip, stage 3; L89.159 Pressure ulcer of sacral region, unspecified stage; H54.3 Unqualified visual loss, both eyes; N31.9 Neuromuscular dysfunction of bladder, unspecified; E10.40 Type 1 diabetes mellitus with diabetic neuropathy, unspecified; S80.11XA Contusion of right lower leg, initial encounter; E10.39 Type 1 diabetes mellitus with other diabetic ophthalmic complication; E55.9 Vitamin D deficiency, unspecified; Z88.2 Allergy status to sulfonamides; Z88.8 Allergy status to other drugs, medicaments and biological substances; Z88.1 Allergy status to other antibiotic agents; Z91.040 Latex allergy status; Z90.49 Acquired absence of other specified parts of digestive tract; Z83.3 Family history of diabetes mellitus; X58.XXXA Exposure to other specified factors, initial encounter; Y93.89 Activity, other specified; Y92.89 Other specified places as the place of occurrence of the external cause; Y99.8 Other external cause status; Z68.25 Body mass index [BMI] 25.0-25.9, adult; L89.104 Pressure ulcer of unspecified part of back, stage 4

== ENCOUNTER → 2022-04-06 | Outpatient (CLI) | payer MEDICAID ==
[~2022-04-06] MED LIST changes: +XARE20MG PO
== END | disposition home or self-care (01) ==
LOC: WOUNDCARE 01:42
PROVIDERS: ATTEND Nurse Practitioner Family
DX: L89.134 Pressure ulcer of right lower back, stage 4 (principal); L89.224 Pressure ulcer of left hip, stage 4; G82.20 Paraplegia, unspecified; G62.9 Polyneuropathy, unspecified; E10.69 Type 1 diabetes mellitus with other specified complication; M86.652 Other chronic osteomyelitis, left thigh; M86.651 Other chronic osteomyelitis, right thigh; I95.9 Hypotension, unspecified; G43.909 Migraine, unspecified, not intractable, without status migrainosus; Z87.891 Personal history of nicotine dependence; Z90.49 Acquired absence of other specified parts of digestive tract

== ENCOUNTER → 2022-04-29 | Outpatient (CLI) | payer MEDICAID | END | disposition home or self-care (01) | LOC: WOUNDCARE 01:18 | PROVIDERS: ATTEND Nurse Practitioner Family | DX: L89.224 Pressure ulcer of left hip, stage 4 (principal); L89.134 Pressure ulcer of right lower back, stage 4; E10.69 Type 1 diabetes mellitus with other specified complication; M86.351 Chronic multifocal osteomyelitis, right femur; M86.352 Chronic multifocal osteomyelitis, left femur; E10.40 Type 1 diabetes mellitus with diabetic neuropathy, unspecified; G82.20 Paraplegia, unspecified; G43.909 Migraine, unspecified, not intractable, without status migrainosus; H54.7 Unspecified visual loss; Z87.891 Personal history of nicotine dependence; Z90.49 Acquired absence of other specified parts of digestive tract ==

== ENCOUNTER → 2022-05-06 | Outpatient (CLI) | payer MEDICAID | END | disposition home or self-care (01) | LOC: WOUNDCARE 05-05 11:06 | PROVIDERS: ATTEND Nurse Practitioner Family | DX: L89.134 Pressure ulcer of right lower back, stage 4 (principal); L89.224 Pressure ulcer of left hip, stage 4; G62.9 Polyneuropathy, unspecified; E10.69 Type 1 diabetes mellitus with other specified complication; H54.7 Unspecified visual loss; M86.351 Chronic multifocal osteomyelitis, right femur; M86.352 Chronic multifocal osteomyelitis, left femur; G82.20 Paraplegia, unspecified; E10.40 Type 1 diabetes mellitus with diabetic neuropathy, unspecified; G43.909 Migraine, unspecified, not intractable, without status migrainosus; Z87.891 Personal history of nicotine dependence; Z90.49 Acquired absence of other specified parts of digestive tract ==

== ENCOUNTER → 2022-05-12 | Outpatient (CLI) | payer MEDICAID | END | disposition home or self-care (01) | LOC: WOUNDCARE 02:25 | PROVIDERS: ATTEND Nurse Practitioner Family | DX: L89.134 Pressure ulcer of right lower back, stage 4 (principal); L89.224 Pressure ulcer of left hip, stage 4; L89.893 Pressure ulcer of other site, stage 3; E10.69 Type 1 diabetes mellitus with other specified complication; M86.351 Chronic multifocal osteomyelitis, right femur; M86.352 Chronic multifocal osteomyelitis, left femur; E10.40 Type 1 diabetes mellitus with diabetic neuropathy, unspecified; G82.20 Paraplegia, unspecified; G43.909 Migraine, unspecified, not intractable, without status migrainosus; Z87.891 Personal history of nicotine dependence; Z90.49 Acquired absence of other specified parts of digestive tract ==

== ENCOUNTER → 2022-05-19 | Outpatient (CLI) | payer MEDICAID | LOC: WOUNDCARE 00:25 | PROVIDERS: ATTEND Nurse Practitioner Family | DX: L89.134 Pressure ulcer of right lower back, stage 4 (principal); L89.224 Pressure ulcer of left hip, stage 4; L89.893 Pressure ulcer of other site, stage 3; G82.20 Paraplegia, unspecified; G62.9 Polyneuropathy, unspecified; E10.69 Type 1 diabetes mellitus with other specified complication; M86.351 Chronic multifocal osteomyelitis, right femur; M86.352 Chronic multifocal osteomyelitis, left femur; Z87.891 Personal history of nicotine dependence; Z90.49 Acquired absence of other specified parts of digestive tract ==

== ENCOUNTER → 2022-05-26 | Outpatient (CLI) | payer MEDICAID | END | disposition home or self-care (01) | LOC: WOUNDCARE 02:28 | PROVIDERS: ATTEND Nurse Practitioner Family | DX: L89.224 Pressure ulcer of left hip, stage 4 (principal); L89.134 Pressure ulcer of right lower back, stage 4; L89.893 Pressure ulcer of other site, stage 3; G82.20 Paraplegia, unspecified; E10.40 Type 1 diabetes mellitus with diabetic neuropathy, unspecified; G43.909 Migraine, unspecified, not intractable, without status migrainosus; E10.69 Type 1 diabetes mellitus with other specified complication; M86.551 Other chronic hematogenous osteomyelitis, right femur; M86.552 Other chronic hematogenous osteomyelitis, left femur; Z87.891 Personal history of nicotine dependence; Z90.49 Acquired absence of other specified parts of digestive tract ==

== ENCOUNTER → 2022-06-08 | Outpatient (CLI) | payer MEDICAID | END | disposition home or self-care (01) | LOC: WOUNDCARE 00:32 | PROVIDERS: ATTEND Nurse Practitioner Family | DX: L89.134 Pressure ulcer of right lower back, stage 4 (principal); L89.224 Pressure ulcer of left hip, stage 4; L89.893 Pressure ulcer of other site, stage 3; G82.20 Paraplegia, unspecified; G62.9 Polyneuropathy, unspecified; G43.909 Migraine, unspecified, not intractable, without status migrainosus; E10.69 Type 1 diabetes mellitus with other specified complication; M86.662 Other chronic osteomyelitis, left tibia and fibula; M86.661 Other chronic osteomyelitis, right tibia and fibula; Z87.891 Personal history of nicotine dependence; Z90.49 Acquired absence of other specified parts of digestive tract ==

== ENCOUNTER → 2022-06-23 | Outpatient (CLI) | payer MEDICAID | END | disposition home or self-care (01) | LOC: WOUNDCARE 00:56 | PROVIDERS: ATTEND Nurse Practitioner Family | DX: L89.224 Pressure ulcer of left hip, stage 4 (principal); L89.893 Pressure ulcer of other site, stage 3; G82.20 Paraplegia, unspecified; E10.40 Type 1 diabetes mellitus with diabetic neuropathy, unspecified; E10.69 Type 1 diabetes mellitus with other specified complication; M86.662 Other chronic osteomyelitis, left tibia and fibula; M86.661 Other chronic osteomyelitis, right tibia and fibula; G43.909 Migraine, unspecified, not intractable, without status migrainosus; Z87.891 Personal history of nicotine dependence; Z90.49 Acquired absence of other specified parts of digestive tract ==

== ENCOUNTER → 2022-07-14 | Outpatient (CLI) | payer MEDICAID | END | disposition home or self-care (01) | LOC: WOUNDCARE 00:27 | PROVIDERS: ATTEND Nurse Practitioner Family | DX: L89.134 Pressure ulcer of right lower back, stage 4 (principal); L89.224 Pressure ulcer of left hip, stage 4; L89.893 Pressure ulcer of other site, stage 3; G82.20 Paraplegia, unspecified; E10.40 Type 1 diabetes mellitus with diabetic neuropathy, unspecified; G43.909 Migraine, unspecified, not intractable, without status migrainosus; E10.69 Type 1 diabetes mellitus with other specified complication; M86.662 Other chronic osteomyelitis, left tibia and fibula; M86.661 Other chronic osteomyelitis, right tibia and fibula; Z87.891 Personal history of nicotine dependence; Z90.49 Acquired absence of other specified parts of digestive tract ==

== ENCOUNTER 2022-07-16 07:50 | Inpatient (IN) | payer MEDICAID ==
[~2022-07-16] VITALS: Ht 149.8 cm; Wt 59.4 kg
[2022-07-16 08:16] VITALS: BP 112/62
[2022-07-16 08:40] LABS: BILIRUBIN Negative (Negative); BLOOD Negative (Negative); CLARITY Cloudy (Clear); COLOR Red (Yellow); GLUCOSE Negative (Negative); KETONE Negative (Negative); LEUKO ESTERASE Trace (Negative); NITRITE Negative (Negative); SPECIFIC GRAVITY 1.015 (1.001-1.030)
[2022-07-16 09:20] LABS: BASO % 0.4 % (0.0-1.0); EOS # 0.2 10*3/uL (0.0-0.4); EOS % 3.5 % (1.0-4.0); HEMATOCRIT 33.3 % (42.0-52.0); LYMPH # 1.8 10*3/uL (1.3-4.4); LYMPH % 32.1 % (27.0-41.0); MEAN CELL VOLUME 85.4 fl (80.0-94.0); MEAN CORPUSCULAR HGB 28.7 pg (27.0-31.0); MEAN CORPUSCULAR HGB CONC 33.6 g/dl (33.0-37.0); MEAN PLATELET VOLUME 9.6 fl (9.6-12.3); MONO # 0.5 10*3/uL (0.1-1.0); MONO % 9.5 % (3.0-9.0); NEUT # 3.1 10*3/uL (2.3-7.9); NEUT % 54.1 % (47.0-73.0); PLATELET COUNT AUTOMATED 288 10*3/uL (130-400); RED CELL DISTRI WIDTH 14.8 % (0-14.5); WHITE BLOOD COUNT 5.7 10*3/uL (4.8-10.8)
[2022-07-16 09:37] LABS: ALKALINE PHOSPHATASE 159 U/L (46-116); BUN 39 mg/dl (9-23); CHLORIDE 109 mmol/L (98-107); CREATININE 0.97 mg/dL (0.70-1.30); POTASSIUM 3.2 mmol/L (3.4-5.1); SODIUM 137 mmol/L (136-145); TOTAL PROTEIN 6.3 gm/dL (6.0-8.0)
[2022-07-16 09:40] LABS: PH >= 9.0 (4.5-8.0)
[2022-07-16 09:43] LABS: BACTERIA 4+
[2022-07-16 09:45] LABS: TRIP PHOS CRYSTALS 2+; YEAST TRACE
[2022-07-16 10:13] LABS: SGPT/ALT 13 U/L (12-78)
[2022-07-16 23:25] VITALS: BP 108/80
[2022-07-17 03:21] VITALS: BP 106/76
[2022-07-17 05:08] LABS: INTERNATIONAL NORM RATIO 1.1 (2.0-3.5)
[2022-07-17 06:07] LABS: BASO % 0.4 % (0.0-1.0); EOS # 0.2 10*3/uL (0.0-0.4); HEMATOCRIT 34.6 % (42.0-52.0); LYMPH # 1.7 10*3/uL (1.3-4.4); LYMPH % 35.7 % (27.0-41.0); MEAN CELL VOLUME 87.8 fl (80.0-94.0); MEAN CORPUSCULAR HGB 28.7 pg (27.0-31.0); MEAN CORPUSCULAR HGB CONC 32.7 g/dl (33.0-37.0); MEAN PLATELET VOLUME 9.9 fl (9.6-12.3); MONO # 0.5 10*3/uL (0.1-1.0); MONO % 9.9 % (3.0-9.0); NEUT # 2.3 10*3/uL (2.3-7.9); NEUT % 49.6 % (47.0-73.0); PLATELET COUNT AUTOMATED 267 10*3/uL (130-400); RED BLOOD COUNT 3.94 10*6/uL (4.50-5.90); RED CELL DISTRI WIDTH 15.1 % (0-14.5); WHITE BLOOD COUNT 4.7 10*3/uL (4.8-10.8)
[2022-07-17 08:05] VITALS: BP 115/70
[2022-07-17 09:45] VITALS: BP 103/87
[2022-07-17 11:05] LABS: VITAMIN D, 25-HYDROXY 21.7 ng/mL (30-100)
[2022-07-17 11:18] LABS: ALKALINE PHOSPHATASE 156 U/L (46-116); BUN 40 mg/dl (9-23); CHLORIDE 112 mmol/L (98-107); CHOLESTEROL 164 mg/dL (<200); CREATININE 0.95 mg/dL (0.70-1.30); FREE T4 1.18 ng/dl (0.89-1.76); LDL CHOLESTEROL 109 mg/dL (9-159); SODIUM 139 mmol/L (136-145); THYROID STIM HORMONE (HS) 1.044 uIU/ml (0.550-4.780); TOTAL PROTEIN 6.2 gm/dL (6.0-8.0); TRIGLYCERIDES 139 mg/dl (<150)
[2022-07-17 11:28] LABS: POTASSIUM 4.3 mmol/L (3.4-5.1)
[2022-07-17 11:30] LABS: SGPT/ALT 13 U/L (10-49)
[2022-07-17 12:00] VITALS: BP 103/87; BP 110/78
[2022-07-17 16:00] VITALS: BP 127/91
[2022-07-17 20:00] VITALS: BP 104/70
[2022-07-18] VITALS: BP 110/70
[2022-07-18 06:27] LABS: BASO % 0.2 % (0.0-1.0); EOS # 0.2 10*3/uL (0.0-0.4); EOS % 3.1 % (1.0-4.0); HEMATOCRIT 30.7 % (42.0-52.0); LYMPH # 1.2 10*3/uL (1.3-4.4); LYMPH % 23.7 % (27.0-41.0); MEAN CELL VOLUME 89.2 fl (80.0-94.0); MEAN CORPUSCULAR HGB 28.8 pg (27.0-31.0); MEAN CORPUSCULAR HGB CONC 32.2 g/dl (33.0-37.0); MEAN PLATELET VOLUME 9.5 fl (9.6-12.3); MONO # 0.6 10*3/uL (0.1-1.0); MONO % 11.1 % (3.0-9.0); NEUT # 3.2 10*3/uL (2.3-7.9); NEUT % 61.3 % (47.0-73.0); PLATELET COUNT AUTOMATED 214 10*3/uL (130-400); RED BLOOD COUNT 3.44 10*6/uL (4.50-5.90); RED CELL DISTRI WIDTH 15.3 % (0-14.5); WHITE BLOOD COUNT 5.2 10*3/uL (4.8-10.8)
[2022-07-18 06:49] LABS: ALKALINE PHOSPHATASE 151 U/L (46-116); BUN 38 mg/dl (9-23); CHLORIDE 110 mmol/L (98-107); CREATININE 1.01 mg/dL (0.70-1.30); POTASSIUM 4.4 mmol/L (3.4-5.1); SODIUM 137 mmol/L (136-145); TOTAL PROTEIN 5.6 gm/dL (6.0-8.0)
[2022-07-18 08:00] VITALS: BP 130/78
[2022-07-18] MEDS ORDERED: LANTUS SOL100 UNIT/1 SQ (09:31)
[2022-07-18] MEDS ORDERED: MEGACE 40400 MG/10 PO (09:33)
[2022-07-18 10:17] LABS: SGPT/ALT < 7 U/L (10-49)
[2022-07-18 11:56] VITALS: BP 105/87
[2022-07-18 16:00] VITALS: BP 115/56
[2022-07-18 20:00] VITALS: BP 102/73
[2022-07-19] VITALS: BP 117/71
[2022-07-19 08:00] VITALS: BP 135/82
[2022-07-19 08:07] LABS: BASO % 0.2 % (0.0-1.0); EOS # 0.2 10*3/uL (0.0-0.4); EOS % 3.3 % (1.0-4.0); HEMATOCRIT 28.7 % (42.0-52.0); LYMPH # 1.5 10*3/uL (1.3-4.4); LYMPH % 23.8 % (27.0-41.0); MEAN CELL VOLUME 87.2 fl (80.0-94.0); MEAN CORPUSCULAR HGB 28.9 pg (27.0-31.0); MEAN CORPUSCULAR HGB CONC 33.1 g/dl (33.0-37.0); MEAN PLATELET VOLUME 9.4 fl (9.6-12.3); MONO # 0.6 10*3/uL (0.1-1.0); MONO % 9.1 % (3.0-9.0); NEUT # 3.9 10*3/uL (2.3-7.9); NEUT % 63.1 % (47.0-73.0); PLATELET COUNT AUTOMATED 215 10*3/uL (130-400); RED BLOOD COUNT 3.29 10*6/uL (4.50-5.90); RED CELL DISTRI WIDTH 14.9 % (0-14.5); WHITE BLOOD COUNT 6.1 10*3/uL (4.8-10.8)
[2022-07-19 08:21] LABS: BUN 32 mg/dl (9-23); CHLORIDE 109 mmol/L (98-107); CREATININE 1.04 mg/dL (0.70-1.30); POTASSIUM 4.2 mmol/L (3.4-5.1); SODIUM 134 mmol/L (136-145)
[2022-07-19 10:00] VITALS: BP 136/73
[2022-07-19 12:00] VITALS: BP 136/73
[2022-07-19 17:00] VITALS: BP 136/74
[2022-07-19 20:00] VITALS: BP 124/69
[2022-07-20] VITALS: BP 146/79
[2022-07-20 08:00] VITALS: BP 146/88
[2022-07-20 12:00] VITALS: BP 146/84
[2022-07-20 16:00] VITALS: BP 134/72
[2022-07-20 20:00] VITALS: BP 132/71
[2022-07-21] VITALS: BP 118/58
[2022-07-21 06:40] LABS: BASO % 0.2 % (0.0-1.0); EOS # 0.2 10*3/uL (0.0-0.4); EOS % 4.2 % (1.0-4.0); HEMATOCRIT 30.5 % (42.0-52.0); LYMPH # 1.5 10*3/uL (1.3-4.4); MEAN CELL VOLUME 87.9 fl (80.0-94.0); MEAN CORPUSCULAR HGB 29.1 pg (27.0-31.0); MEAN CORPUSCULAR HGB CONC 33.1 g/dl (33.0-37.0); MEAN PLATELET VOLUME 9.7 fl (9.6-12.3); MONO # 0.4 10*3/uL (0.1-1.0); MONO % 8.5 % (3.0-9.0); NEUT # 2.9 10*3/uL (2.3-7.9); NEUT % 56.7 % (47.0-73.0); PLATELET COUNT AUTOMATED 228 10*3/uL (130-400); RED BLOOD COUNT 3.47 10*6/uL (4.50-5.90); RED CELL DISTRI WIDTH 15.1 % (0-14.5)
[2022-07-21 07:06] LABS: BUN 27 mg/dl (9-23); CHLORIDE 112 mmol/L (98-107); CREATININE 1.02 mg/dL (0.70-1.30); POTASSIUM 4.3 mmol/L (3.4-5.1); SODIUM 140 mmol/L (136-145)
[2022-07-21 08:00] VITALS: BP 128/80
[2022-07-21 12:00] VITALS: BP 134/80
== END 2022-07-21 16:26 | disposition short-term general hospital (02) | DRG 463 ==
LOC: ED → 4E 11:08 → EDHOLD 11:08 → ED 11:08 → EDHOLD 12:54 → 4E 07-17 07:40 → EDHOLD 07-17 07:40 → 4E 07-17 07:43
PROVIDERS: Family Medicine; Student in an Organized Health Care Education/Training Program; ADMIT Internal Medicine; ATTEND Internal Medicine
PROC: 02HV33Z Insertion of Infusion Device into Superior Vena Cava, Percutaneous Approach (ICD-10-PCS; principal; 2022-07-16)
PROC: B548ZZA Ultrasonography of Superior Vena Cava, Guidance (ICD-10-PCS; 2022-07-16)
DX: N39.0 Urinary tract infection, site not specified (principal); E43 Unspecified severe protein-calorie malnutrition; E87.6 Hypokalemia; L89.153 Pressure ulcer of sacral region, stage 3; R78.81 Bacteremia; G82.20 Paraplegia, unspecified; D64.9 Anemia, unspecified; E11.65 Type 2 diabetes mellitus with hyperglycemia; E87.8 Other disorders of electrolyte and fluid balance, not elsewhere classified; E11.39 Type 2 diabetes mellitus with other diabetic ophthalmic complication; H54.61 Unqualified visual loss, right eye, normal vision left eye; T83.511S Infection and inflammatory reaction due to indwelling urethral catheter, sequela; H54.62 Unqualified visual loss, left eye, normal vision right eye; E11.40 Type 2 diabetes mellitus with diabetic neuropathy, unspecified; E55.9 Vitamin D deficiency, unspecified; N31.9 Neuromuscular dysfunction of bladder, unspecified; D63.8 Anemia in other chronic diseases classified elsewhere; I87.2 Venous insufficiency (chronic) (peripheral); L89.893 Pressure ulcer of other site, stage 3; M86.362 Chronic multifocal osteomyelitis, left tibia and fibula; M86.352 Chronic multifocal osteomyelitis, left femur; M86.351 Chronic multifocal osteomyelitis, right femur; M86.361 Chronic multifocal osteomyelitis, right tibia and fibula; L89.322 Pressure ulcer of left buttock, stage 2; D49.7 Neoplasm of unspecified behavior of endocrine glands and other parts of nervous system; Y83.8 Other surgical procedures as the cause of abnormal reaction of the patient, or of later complication, without mention of misadventure at the time of the procedure; B96.89 Other specified bacterial agents as the cause of diseases classified elsewhere; Z88.2 Allergy status to sulfonamides; Z88.8 Allergy status to other drugs, medicaments and biological substances; Z88.1 Allergy status to other antibiotic agents; Z91.040 Latex allergy status; Z90.49 Acquired absence of other specified parts of digestive tract; Z83.3 Family history of diabetes mellitus; Z68.26 Body mass index [BMI] 26.0-26.9, adult

== ENCOUNTER → 2022-08-04 | Outpatient (CLI) | payer MEDICAID ==
[~2022-08-04] MED LIST changes: +INSULIN GL100 UNIT/5 SC; +MEGACE 40400 MG/10 PO; +VITAMIN D350 MCG PO
== END | disposition home or self-care (01) ==
LOC: WOUNDCARE
PROVIDERS: ATTEND Nurse Practitioner Family
DX: L89.224 Pressure ulcer of left hip, stage 4 (principal); L89.893 Pressure ulcer of other site, stage 3; E10.69 Type 1 diabetes mellitus with other specified complication; M86.662 Other chronic osteomyelitis, left tibia and fibula; M86.661 Other chronic osteomyelitis, right tibia and fibula; E10.40 Type 1 diabetes mellitus with diabetic neuropathy, unspecified; G82.20 Paraplegia, unspecified; G43.909 Migraine, unspecified, not intractable, without status migrainosus; Z87.891 Personal history of nicotine dependence; Z90.49 Acquired absence of other specified parts of digestive tract

== ENCOUNTER 2022-08-14 10:50 | Emergency (ER) | payer MEDICAID ==
[2022-08-14 13:59] LABS: BASO % 0.6 % (0.0-1.0); EOS # 0.2 10*3/uL (0.0-0.4); EOS % 3.3 % (1.0-4.0); HEMATOCRIT 30.2 % (42.0-52.0); LYMPH # 1.1 10*3/uL (1.3-4.4); LYMPH % 20.5 % (27.0-41.0); MEAN CELL VOLUME 89.9 fl (80.0-94.0); MEAN CORPUSCULAR HGB 28.6 pg (27.0-31.0); MEAN CORPUSCULAR HGB CONC 31.8 g/dl (33.0-37.0); MEAN PLATELET VOLUME 9.2 fl (9.6-12.3); MONO # 0.6 10*3/uL (0.1-1.0); MONO % 11.2 % (3.0-9.0); NEUT # 3.3 10*3/uL (2.3-7.9); PLATELET COUNT AUTOMATED 308 10*3/uL (130-400); RED BLOOD COUNT 3.36 10*6/uL (4.50-5.90); RED CELL DISTRI WIDTH 14.6 % (0-14.5); WHITE BLOOD COUNT 5.1 10*3/uL (4.8-10.8)
[2022-08-14 14:39] LABS: ALKALINE PHOSPHATASE 166 U/L (46-116); BUN 28 mg/dl (9-23); CHLORIDE 101 mmol/L (98-107); POTASSIUM 4.7 mmol/L (3.4-5.1); TOTAL PROTEIN 6.9 gm/dL (6.0-8.0)
[2022-08-14 14:48] LABS: SGPT/ALT < 7 U/L (10-49)
[2022-08-16 05:06] LABS: HEPATITIS B SURFACE AG Negative (Negative)
== END 2022-08-14 18:21 | disposition home or self-care (01) ==
LOC: ED 10:50
PROVIDERS: Physician Assistant
DX: E11.65 Type 2 diabetes mellitus with hyperglycemia (principal); Z88.1 Allergy status to other antibiotic agents; Z88.2 Allergy status to sulfonamides; Z88.8 Allergy status to other drugs, medicaments and biological substances; Z91.040 Latex allergy status; Z90.49 Acquired absence of other specified parts of digestive tract; Z90.89 Acquired absence of other organs

== ENCOUNTER → 2022-08-18 | Outpatient (CLI) | payer MEDICAID | END | disposition home or self-care (01) | LOC: WOUNDCARE 01:16 | PROVIDERS: ATTEND Nurse Practitioner Family | DX: L89.224 Pressure ulcer of left hip, stage 4 (principal); L89.893 Pressure ulcer of other site, stage 3; G82.20 Paraplegia, unspecified; E10.40 Type 1 diabetes mellitus with diabetic neuropathy, unspecified; E10.69 Type 1 diabetes mellitus with other specified complication; M86.661 Other chronic osteomyelitis, right tibia and fibula; M86.662 Other chronic osteomyelitis, left tibia and fibula; G43.909 Migraine, unspecified, not intractable, without status migrainosus; Z87.891 Personal history of nicotine dependence; Z90.49 Acquired absence of other specified parts of digestive tract ==

== ENCOUNTER 2022-08-26 01:01 | Emergency (ER) | payer MEDICAID ==
[~2022-08-26] VITALS: Wt 62.3 kg
== END 2022-08-26 07:59 | disposition home or self-care (01) ==
LOC: ED 01:01
DX: G82.20 Paraplegia, unspecified (principal); M79.662 Pain in left lower leg; M79.661 Pain in right lower leg; Z88.1 Allergy status to other antibiotic agents; Z88.8 Allergy status to other drugs, medicaments and biological substances; Z91.040 Latex allergy status; Z79.899 Other long term (current) drug therapy; Z90.49 Acquired absence of other specified parts of digestive tract

== ENCOUNTER → 2022-09-07 | Outpatient (CLI) | payer MEDICAID | END | disposition home or self-care (01) | LOC: WOUNDCARE 02:46 → LAB 02:46 → WOUNDCARE 02:47 | PROVIDERS: ATTEND Nurse Practitioner Family | DX: L89.224 Pressure ulcer of left hip, stage 4 (principal); L89.893 Pressure ulcer of other site, stage 3; L89.626 Pressure-induced deep tissue damage of left heel; L89.616 Pressure-induced deep tissue damage of right heel; E10.69 Type 1 diabetes mellitus with other specified complication; M86.662 Other chronic osteomyelitis, left tibia and fibula; M86.661 Other chronic osteomyelitis, right tibia and fibula; E10.40 Type 1 diabetes mellitus with diabetic neuropathy, unspecified; G82.20 Paraplegia, unspecified; G43.909 Migraine, unspecified, not intractable, without status migrainosus; Z87.891 Personal history of nicotine dependence; Z90.49 Acquired absence of other specified parts of digestive tract ==

== ENCOUNTER → 2022-09-21 | Outpatient (CLI) | payer MEDICAID ==
[2022-09-21 15:53] LABS: BASO % 0.3 % (0.0-1.0); EOS # 0.1 10*3/uL (0.0-0.4); EOS % 1.9 % (1.0-4.0); HEMATOCRIT 41.7 % (42.0-52.0); LYMPH # 1.5 10*3/uL (1.3-4.4); LYMPH % 23.3 % (27.0-41.0); MEAN CELL VOLUME 94.1 fl (80.0-94.0); MEAN CORPUSCULAR HGB 27.5 pg (27.0-31.0); MEAN CORPUSCULAR HGB CONC 29.3 g/dl (33.0-37.0); MEAN PLATELET VOLUME 9.4 fl (9.6-12.3); MONO # 0.5 10*3/uL (0.1-1.0); MONO % 7.4 % (3.0-9.0); NEUT # 4.3 10*3/uL (2.3-7.9); NEUT % 66.8 % (47.0-73.0); PLATELET COUNT AUTOMATED 218 10*3/uL (130-400); RED BLOOD COUNT 4.43 10*6/uL (4.50-5.90); RED CELL DISTRI WIDTH 13.9 % (0-14.5); WHITE BLOOD COUNT 6.5 10*3/uL (4.8-10.8)
[2022-09-21 16:12] LABS: ALKALINE PHOSPHATASE 181 U/L (46-116); BUN 26 mg/dl (9-23); CHLORIDE 106 mmol/L (98-107); POTASSIUM 4.7 mmol/L (3.4-5.1); TOTAL PROTEIN 7.3 gm/dL (6.0-8.0)
[2022-09-21 16:15] LABS: SGPT/ALT < 7 U/L (10-49)
== END | disposition home or self-care (01) ==
LOC: WOUNDCARE 01:35 → LAB 01:35 → WOUNDCARE 08:46
PROVIDERS: Internal Medicine; ATTEND Nurse Practitioner Family
DX: L89.224 Pressure ulcer of left hip, stage 4 (principal); L89.893 Pressure ulcer of other site, stage 3; L89.626 Pressure-induced deep tissue damage of left heel; L89.616 Pressure-induced deep tissue damage of right heel; L24.A2 Irritant contact dermatitis due to fecal, urinary or dual incontinence; E10.69 Type 1 diabetes mellitus with other specified complication; M86.661 Other chronic osteomyelitis, right tibia and fibula; M86.662 Other chronic osteomyelitis, left tibia and fibula; E10.40 Type 1 diabetes mellitus with diabetic neuropathy, unspecified; H54.7 Unspecified visual loss; G82.20 Paraplegia, unspecified; G43.909 Migraine, unspecified, not intractable, without status migrainosus; Z87.891 Personal history of nicotine dependence; Z90.49 Acquired absence of other specified parts of digestive tract

== ENCOUNTER 2022-09-26 10:48 | Emergency (ER) | payer MEDICAID | END 2022-09-26 16:18 | disposition short-term general hospital (02) | LOC: ED 10:48 | DX: S41.101A Unspecified open wound of right upper arm, initial encounter (principal); S41.102A Unspecified open wound of left upper arm, initial encounter; S81.801A Unspecified open wound, right lower leg, initial encounter; S81.802A Unspecified open wound, left lower leg, initial encounter; N39.0 Urinary tract infection, site not specified; E11.9 Type 2 diabetes mellitus without complications; Z88.1 Allergy status to other antibiotic agents; Z88.2 Allergy status to sulfonamides; Z91.040 Latex allergy status; Z88.8 Allergy status to other drugs, medicaments and biological substances; Z98.890 Other specified postprocedural states; Z90.49 Acquired absence of other specified parts of digestive tract; X58.XXXA Exposure to other specified factors, initial encounter; Y93.89 Activity, other specified; Y92.89 Other specified places as the place of occurrence of the external cause; Y99.8 Other external cause status ==

== ENCOUNTER → 2022-10-05 | Outpatient (CLI) | payer MEDICAID | END | disposition home or self-care (01) | LOC: WOUNDCARE 02:20 | PROVIDERS: ATTEND Nurse Practitioner Family | DX: L89.224 Pressure ulcer of left hip, stage 4 (principal); L89.893 Pressure ulcer of other site, stage 3; L89.626 Pressure-induced deep tissue damage of left heel; L89.616 Pressure-induced deep tissue damage of right heel; L24.A2 Irritant contact dermatitis due to fecal, urinary or dual incontinence; E10.69 Type 1 diabetes mellitus with other specified complication; M86.661 Other chronic osteomyelitis, right tibia and fibula; M86.662 Other chronic osteomyelitis, left tibia and fibula; G82.20 Paraplegia, unspecified; Z87.891 Personal history of nicotine dependence; Z90.49 Acquired absence of other specified parts of digestive tract ==

== ENCOUNTER → 2022-10-25 | Outpatient (CLI) | payer MEDICAID | END | disposition home or self-care (01) | LOC: WOUNDCARE 01:15 | PROVIDERS: ATTEND Nurse Practitioner Family | DX: L89.224 Pressure ulcer of left hip, stage 4 (principal); L89.893 Pressure ulcer of other site, stage 3; L89.626 Pressure-induced deep tissue damage of left heel; L89.616 Pressure-induced deep tissue damage of right heel; L24.A2 Irritant contact dermatitis due to fecal, urinary or dual incontinence; G82.20 Paraplegia, unspecified; G62.9 Polyneuropathy, unspecified; G43.909 Migraine, unspecified, not intractable, without status migrainosus; E10.69 Type 1 diabetes mellitus with other specified complication; M86.661 Other chronic osteomyelitis, right tibia and fibula; M86.662 Other chronic osteomyelitis, left tibia and fibula; Z87.891 Personal history of nicotine dependence; Z90.49 Acquired absence of other specified parts of digestive tract ==

== ENCOUNTER → 2022-11-09 | Outpatient (CLI) | payer MEDICAID | END | disposition home or self-care (01) | LOC: WOUNDCARE 01:48 | PROVIDERS: ATTEND Nurse Practitioner Family | DX: L89.224 Pressure ulcer of left hip, stage 4 (principal); L89.626 Pressure-induced deep tissue damage of left heel; L89.616 Pressure-induced deep tissue damage of right heel; L89.323 Pressure ulcer of left buttock, stage 3; L24.A2 Irritant contact dermatitis due to fecal, urinary or dual incontinence; E10.40 Type 1 diabetes mellitus with diabetic neuropathy, unspecified; E10.69 Type 1 diabetes mellitus with other specified complication; M86.661 Other chronic osteomyelitis, right tibia and fibula; M86.662 Other chronic osteomyelitis, left tibia and fibula; G43.909 Migraine, unspecified, not intractable, without status migrainosus; Z87.891 Personal history of nicotine dependence; Z90.49 Acquired absence of other specified parts of digestive tract ==

== ENCOUNTER → 2022-11-30 | Outpatient (CLI) | payer MEDICAID | END | disposition home or self-care (01) | LOC: WOUNDCARE 11-23 01:29 | PROVIDERS: ATTEND Nurse Practitioner Family | DX: L89.224 Pressure ulcer of left hip, stage 4 (principal); L89.626 Pressure-induced deep tissue damage of left heel; L89.616 Pressure-induced deep tissue damage of right heel; L89.323 Pressure ulcer of left buttock, stage 3; L24.A2 Irritant contact dermatitis due to fecal, urinary or dual incontinence; E10.40 Type 1 diabetes mellitus with diabetic neuropathy, unspecified; E10.69 Type 1 diabetes mellitus with other specified complication; M86.661 Other chronic osteomyelitis, right tibia and fibula; G43.909 Migraine, unspecified, not intractable, without status migrainosus; Z87.891 Personal history of nicotine dependence; Z90.49 Acquired absence of other specified parts of digestive tract ==

== ENCOUNTER → 2022-12-14 | Outpatient (CLI) | payer MEDICAID ==
[~2022-12-14] MED LIST changes: +FEROSUL325 M1 PO; +FUROSEMIDE40 MG PO
[2022-12-14 14:24] LABS: BASO % 0.3 % (0.0-1.0); EOS # 0.1 10*3/uL (0.0-0.4); EOS % 1.8 % (1.0-4.0); HEMATOCRIT 38.8 % (42.0-52.0); LYMPH # 1.5 10*3/uL (1.3-4.4); LYMPH % 21.4 % (27.0-41.0); MEAN CELL VOLUME 88.8 fl (80.0-94.0); MEAN CORPUSCULAR HGB 27.5 pg (27.0-31.0); MEAN CORPUSCULAR HGB CONC 30.9 g/dl (33.0-37.0); MEAN PLATELET VOLUME 9.7 fl (9.6-12.3); MONO # 0.5 10*3/uL (0.1-1.0); MONO % 7.1 % (3.0-9.0); NEUT # 4.8 10*3/uL (2.3-7.9); NEUT % 68.8 % (47.0-73.0); PLATELET COUNT AUTOMATED 284 10*3/uL (130-400); RED BLOOD COUNT 4.37 10*6/uL (4.50-5.90); RED CELL DISTRI WIDTH 14.8 % (0-14.5)
[2022-12-14 14:27] LABS: BILIRUBIN Negative (Negative); BLOOD Negative (Negative); CLARITY Cloudy (Clear); COLOR Yellow (Yellow); GLUCOSE Negative (Negative); KETONE Negative (Negative); LEUKO ESTERASE Trace (Negative); NITRITE Negative (Negative); UROBILINOGEN 0.2 E.U./dl (0.0-1.0)
[2022-12-14 14:29] LABS: PH >= 9.0 (4.5-8.0)
[2022-12-14 14:38] LABS: BACTERIA 2+; TRIP PHOS CRYSTALS 1+
[2022-12-14 15:04] LABS: ALKALINE PHOSPHATASE 195 U/L (46-116); BUN 34 mg/dl (9-23); CHLORIDE 106 mmol/L (98-107); POTASSIUM 4.4 mmol/L (3.4-5.1)
[2022-12-14 15:05] LABS: SGPT/ALT < 7 U/L (10-49)
== END | disposition home or self-care (01) ==
LOC: LAB 01:28 → WOUNDCARE 01:28
PROVIDERS: Internal Medicine; ATTEND Nurse Practitioner Family
DX: L89.224 Pressure ulcer of left hip, stage 4 (principal); L89.626 Pressure-induced deep tissue damage of left heel; L89.616 Pressure-induced deep tissue damage of right heel; L89.893 Pressure ulcer of other site, stage 3; L89.323 Pressure ulcer of left buttock, stage 3; L24.A2 Irritant contact dermatitis due to fecal, urinary or dual incontinence; G82.20 Paraplegia, unspecified; A02.1 Salmonella sepsis; E10.40 Type 1 diabetes mellitus with diabetic neuropathy, unspecified; E10.69 Type 1 diabetes mellitus with other specified complication; M86.662 Other chronic osteomyelitis, left tibia and fibula; M86.661 Other chronic osteomyelitis, right tibia and fibula; Z87.891 Personal history of nicotine dependence; Z90.49 Acquired absence of other specified parts of digestive tract

== ENCOUNTER 2023-09-12 16:43 | Inpatient (IN) | payer MEDICAID ==
[~2023-09-12] VITALS: Ht 149.8 cm; Wt 67.2 kg
[~2023-09-12 16:43] MED LIST changes: +DOXYCYCLINE HY100 M3 PO; +MEROPENEM-500 MG/50 IV; +VITAMIN D325 MCG PO
[2023-09-12 16:45] VITALS: BP 97/63
[2023-09-12 17:18] LABS: BASO % 0.2 % (0.0-1.0); EOS % 0.5 % (1.0-4.0); HEMATOCRIT 32.9 % (42.0-52.0); LYMPH # 0.7 10*3/uL (1.3-4.4); LYMPH % 15.8 % (27.0-41.0); MEAN CORPUSCULAR HGB 27.5 pg (27.0-31.0); MEAN CORPUSCULAR HGB CONC 31.3 g/dl (33.0-37.0); MEAN PLATELET VOLUME 9.7 fl (9.6-12.3); MONO # 0.8 10*3/uL (0.1-1.0); MONO % 18.2 % (3.0-9.0); NEUT # 2.7 10*3/uL (2.3-7.9); NEUT % 65.1 % (47.0-73.0); PLATELET COUNT AUTOMATED 197 10*3/uL (130-400); RED BLOOD COUNT 3.74 10*6/uL (4.50-5.90); RED CELL DISTRI WIDTH 14.6 % (0-14.5); WHITE BLOOD COUNT 4.2 10*3/uL (4.8-10.8)
[2023-09-12 17:28] LABS: ACT PARTIAL THROMBO TIME 27.1 SECONDS (20.0-32.1)
[2023-09-12 17:38] LABS: ALKALINE PHOSPHATASE 176 U/L (46-116); BUN 31 mg/dl (9-23); CHLORIDE 102 mmol/L (98-107); LIPASE 23 U/L (12-53); POTASSIUM 4.2 mmol/L (3.4-5.1); SGPT/ALT 10 U/L (5-49); TOTAL PROTEIN 5.9 gm/dL (6.0-8.0)
[2023-09-12 18:12] LABS: BILIRUBIN Negative (Negative); BLOOD Trace-Lysed (Negative); CLARITY Turbid (Clear); COLOR Yellow (Yellow); GLUCOSE Negative (Negative); KETONE Negative (Negative); LEUKO ESTERASE Trace (Negative); NITRITE Negative (Negative); PH 7.5 (4.5-8.0); UROBILINOGEN 0.2 E.U./dl (0.0-1.0)
[2023-09-12 18:25] LABS: BACTERIA 4+; TRIP PHOS CRYSTALS 1+; WBC 0-2 wbc/hpf (0-5)
[2023-09-12] MEDS ORDERED: Vancomycin Hydrochloride 250 ML IV ONE (19:00)
[2023-09-12] MEDS ORDERED: Oseltamivir Phosphate 75 MG CAP PO ONE (19:05)
[2023-09-12 20:46] VITALS: BP 149/59
[2023-09-12] MEDS ORDERED: Magnesium Hydroxide 30 ML UDC PO PRN (22:50)
[2023-09-12] MEDS ORDERED: BISACODYL 5 MG TAB PO PRN (22:50)
[2023-09-12] MEDS ORDERED: BISACODYL 10 MG SUPP R PRN (22:50)
[2023-09-12] MEDS ORDERED: TEMAZEPAM 15 MG CAP PO PRN (22:50)
[2023-09-12] MEDS ORDERED: ACETAMINOPHEN 325 MG TAB PO PRN (22:50)
[2023-09-12] MEDS ORDERED: Acetaminophen/Hydrocodone 5 MG/325 MG TABLET PO PRN (22:50)
[2023-09-12] MEDS ORDERED: Ondansetron Hydrochloride 4 MG/2 ML VIAL IV PRN (22:50)
[2023-09-12] MEDS ORDERED: DEXTROSE 10 % IN WATER 250 ML IV PRN (23:50)
[2023-09-13 00:17] VITALS: BP 108/80
[2023-09-13] MEDS ORDERED: AZITHROMYCIN 250 MG TAB PO ONE (00:35)
[2023-09-13] MEDS ORDERED: Cefuroxime Axetil 250 MG TAB PO SCH (00:40)
[2023-09-13] MEDS ORDERED: Cefuroxime Axetil 250 MG TAB PO ONE (01:17)
[2023-09-13] MEDS ORDERED: HEEL PROTECTOR DEVICE ONE (01:39)
[2023-09-13 07:03] LABS: ALKALINE PHOSPHATASE 171 U/L (46-116); BUN 30 mg/dl (9-23); CHLORIDE 105 mmol/L (98-107); POTASSIUM 4.3 mmol/L (3.4-5.1); SGPT/ALT 8 U/L (5-49); TOTAL PROTEIN 5.8 gm/dL (6.0-8.0)
[2023-09-13 07:13] LABS: HEMATOCRIT 34.7 % (42.0-52.0); MEAN CORPUSCULAR HGB 27.4 pg (27.0-31.0); MEAN CORPUSCULAR HGB CONC 30.8 g/dl (33.0-37.0); MEAN PLATELET VOLUME 9.7 fl (9.6-12.3); PLATELET COUNT AUTOMATED 197 10*3/uL (130-400); RED CELL DISTRI WIDTH 14.9 % (0-14.5); WHITE BLOOD COUNT 3.6 10*3/uL (4.8-10.8)
[2023-09-13 07:17] LABS: MANUAL DIFF REFLEX YES
[2023-09-13] MEDS ORDERED: INSULIN LISPRO 1 UNIT/0.01 ML SQ SCH (07:30)
[2023-09-13 07:35] LABS: BASOPHILS 1 % (0-1); BURR CELLS FEW; PLATELET SUFFICIENCY NORMAL (NORMAL); POLYCHROMASIA SLIGHT; TOTAL CELLS COUNTED 100 #CELLS
[2023-09-13 08:00] VITALS: BP 89/58
[2023-09-13] MEDS ORDERED: Enoxaparin Sodium 40 MG/0.4 ML SYR SC SCH (10:00)
[2023-09-13] MEDS ORDERED: Oseltamivir Phosphate 30 MG CAP PO SCH (10:00)
[2023-09-13 12:00] VITALS: BP 98/56
[2023-09-13 16:00] VITALS: BP 89/61
[2023-09-13 20:00] VITALS: BP 97/57
[2023-09-14] VITALS: BP 105/70
[2023-09-14 06:36] LABS: BUN 36 mg/dl (9-23); CHLORIDE 106 mmol/L (98-107); POTASSIUM 4.2 mmol/L (3.4-5.1)
[2023-09-14 08:00] VITALS: BP 109/66
[2023-09-14] MEDS ORDERED: FOAM BANDAGE 4X4 T ONE (11:06)
[2023-09-14] MEDS ORDERED: FOAM BANDAGE 1 EACH BANDAGE T ONE (11:06)
[2023-09-14] MEDS ORDERED: LEPTOSPERMUM HONEY 4 X 5 INCH WOUND DRESSING T ONE (11:06)
[2023-09-14 12:00] VITALS: BP 99/72
[2023-09-14 16:00] VITALS: BP 110/70
[2023-09-14 20:00] VITALS: BP 134/80
[2023-09-15] VITALS: BP 132/88
[2023-09-15 05:34] LABS: POTASSIUM 4.5 mmol/L (3.4-5.1)
[2023-09-15 06:03] LABS: BASO % 0.4 % (0.0-1.0); EOS # 0.1 10*3/uL (0.0-0.4); EOS % 2.3 % (1.0-4.0); HEMATOCRIT 38.8 % (42.0-52.0); LYMPH # 1.1 10*3/uL (1.3-4.4); LYMPH % 41.1 % (27.0-41.0); MEAN CELL VOLUME 90.2 fl (80.0-94.0); MEAN CORPUSCULAR HGB 27.9 pg (27.0-31.0); MEAN CORPUSCULAR HGB CONC 30.9 g/dl (33.0-37.0); MEAN PLATELET VOLUME 9.7 fl (9.6-12.3); MONO # 0.4 10*3/uL (0.1-1.0); MONO % 14.3 % (3.0-9.0); NEUT # 1.1 10*3/uL (2.3-7.9); NEUT % 41.5 % (47.0-73.0); PLATELET COUNT AUTOMATED 204 10*3/uL (130-400); RED CELL DISTRI WIDTH 15.2 % (0-14.5); WHITE BLOOD COUNT 2.6 10*3/uL (4.8-10.8)
[2023-09-15 08:00] VITALS: BP 135/88
[2023-09-15 11:32] LABS: POTASSIUM 4.6 mmol/L (3.4-5.1)
[2023-09-15 12:00] VITALS: BP 100/73
[2023-09-15] MEDS ORDERED: Lactated Ringer's Solution 1,000 ML IV ONE (12:05)
[2023-09-15 16:00] VITALS: BP 139/96
[2023-09-15 19:59] LABS: POTASSIUM 5.1 mmol/L (3.4-5.1)
[2023-09-15 20:00] VITALS: BP 149/79
[2023-09-16] VITALS: BP 136/78
[2023-09-16 06:10] LABS: BUN 27 mg/dl (9-23); CHLORIDE 108 mmol/L (98-107); POTASSIUM 4.5 mmol/L (3.4-5.1)
[2023-09-16 06:20] LABS: HEMATOCRIT 38.1 % (42.0-52.0); MEAN CELL VOLUME 90.1 fl (80.0-94.0); MEAN CORPUSCULAR HGB 27.2 pg (27.0-31.0); MEAN CORPUSCULAR HGB CONC 30.2 g/dl (33.0-37.0); MEAN PLATELET VOLUME 9.7 fl (9.6-12.3); PLATELET COUNT AUTOMATED 214 10*3/uL (130-400); RED BLOOD COUNT 4.23 10*6/uL (4.50-5.90); RED CELL DISTRI WIDTH 15.2 % (0-14.5)
[2023-09-16 06:22] LABS: MANUAL DIFF REFLEX YES
[2023-09-16 06:58] LABS: ATYPICAL LYMPHS 1 % (0-0); BURR CELLS MODERATE; OVALOCYTES FEW; POLYCHROMASIA SLIGHT; TOTAL CELLS COUNTED 100 #CELLS
[2023-09-16 06:59] LABS: PLATELET SUFFICIENCY NORMAL (NORMAL)
[2023-09-16 08:00] VITALS: BP 120/78
[2023-09-16] MEDS ORDERED: Lactated Ringer's Solution 1,000 ML IV ONE (10:45)
[2023-09-16 12:00] VITALS: BP 104/62; BP 161/62
[2023-09-16 16:00] VITALS: BP 133/72
[2023-09-16 20:00] VITALS: BP 157/84
[2023-09-17] VITALS: BP 151/85
[2023-09-17] MEDS ORDERED: FOAM BANDAGE 6X6 T ONE (04:27)
[2023-09-17] MEDS ORDERED: LEPTOSPERMUM HONEY 4 X 5 INCH WOUND DRESSING T ONE (04:27)
[2023-09-17 06:49] LABS: BUN 26 mg/dl (9-23); CHLORIDE 108 mmol/L (98-107); POTASSIUM 4.6 mmol/L (3.4-5.1)
[2023-09-17 08:00] VITALS: BP 134/74
[2023-09-17 12:00] VITALS: BP 106/77
[2023-09-17 16:00] VITALS: BP 119/85
[2023-09-17 19:15] LABS: VENOUS PH 7.519 (7.37-7.45)
[2023-09-17 19:36] LABS: BUN 21 mg/dl (9-23); CHLORIDE 110 mmol/L (98-107)
[2023-09-17 19:40] LABS: POTASSIUM 5.3 mmol/L (3.4-5.1)
[2023-09-17 20:00] VITALS: BP 145/82
[2023-09-18] VITALS: BP 136/79
[2023-09-18 05:49] LABS: CHLORIDE 109 mmol/L (98-107); POTASSIUM 4.8 mmol/L (3.4-5.1)
[2023-09-18 05:51] LABS: BUN 35 mg/dl (9-23)
[2023-09-18 06:42] LABS: BASO % 0.5 % (0.0-1.0); EOS % 1.8 % (1.0-4.0); HEMATOCRIT 36.7 % (42.0-52.0); LYMPH # 0.7 10*3/uL (1.3-4.4); LYMPH % 30.9 % (27.0-41.0); MEAN CELL VOLUME 89.3 fl (80.0-94.0); MEAN CORPUSCULAR HGB 27.3 pg (27.0-31.0); MEAN CORPUSCULAR HGB CONC 30.5 g/dl (33.0-37.0); MEAN PLATELET VOLUME 9.4 fl (9.6-12.3); MONO # 0.3 10*3/uL (0.1-1.0); MONO % 14.1 % (3.0-9.0); NEUT # 1.1 10*3/uL (2.3-7.9); NEUT % 51.8 % (47.0-73.0); RED BLOOD COUNT 4.11 10*6/uL (4.50-5.90); RED CELL DISTRI WIDTH 15.4 % (0-14.5); WHITE BLOOD COUNT 2.2 10*3/uL (4.8-10.8)
[2023-09-18 06:54] LABS: PLATELET COUNT AUTOMATED 287 10*3/uL (130-400)
[2023-09-18 08:00] VITALS: BP 117/74
[2023-09-18] MEDS ORDERED: Insulin Glargine, Recombinan 1 UNIT/0.01 ML SC SCH (10:00)
[2023-09-18 12:00] VITALS: BP 112/71
[2023-09-18] MEDS ORDERED: SODIUM BICARBONATE 325 MG TAB PO SCH (12:00)
[2023-09-18 16:00] VITALS: BP 115/53
[2023-09-18 20:00] VITALS: BP 136/80
[2023-09-19] VITALS: BP 136/84
[2023-09-19 06:59] LABS: BUN 27 mg/dl (9-23); CHLORIDE 113 mmol/L (98-107); HEMATOCRIT 36.4 % (42.0-52.0); MEAN CELL VOLUME 88.6 fl (80.0-94.0); MEAN CORPUSCULAR HGB 27.3 pg (27.0-31.0); MEAN CORPUSCULAR HGB CONC 30.8 g/dl (33.0-37.0); MEAN PLATELET VOLUME 9.4 fl (9.6-12.3); PLATELET COUNT AUTOMATED 301 10*3/uL (130-400); POTASSIUM 4.4 mmol/L (3.4-5.1); RED BLOOD COUNT 4.11 10*6/uL (4.50-5.90); RED CELL DISTRI WIDTH 15.4 % (0-14.5); WHITE BLOOD COUNT 2.4 10*3/uL (4.8-10.8)
[2023-09-19 07:03] LABS: MANUAL DIFF REFLEX YES
[2023-09-19 08:00] VITALS: BP 151/91; BP 152/92
[2023-09-19 08:05] LABS: BURR CELLS FEW; PLATELET SUFFICIENCY NORMAL (NORMAL); POLYCHROMASIA SLIGHT; TOTAL CELLS COUNTED 100 #CELLS
[2023-09-19 12:00] VITALS: BP 129/87
[2023-09-19] MEDS ORDERED: LEPTOSPERMUM HONEY 4 X 5 INCH WOUND DRESSING T ONE (14:52)
[2023-09-19] MEDS ORDERED: FOAM BANDAGE 6X6 T ONE (14:52)
[2023-09-19 16:00] VITALS: BP 126/75
[2023-09-19 20:00] VITALS: BP 141/85
[2023-09-20] VITALS: BP 127/84
[2023-09-20 06:12] LABS: HEMATOCRIT 35.8 % (42.0-52.0); MEAN CELL VOLUME 87.3 fl (80.0-94.0); MEAN CORPUSCULAR HGB 27.6 pg (27.0-31.0); MEAN CORPUSCULAR HGB CONC 31.6 g/dl (33.0-37.0); MEAN PLATELET VOLUME 9.3 fl (9.6-12.3); PLATELET COUNT AUTOMATED 311 10*3/uL (130-400); RED CELL DISTRI WIDTH 15.5 % (0-14.5); WHITE BLOOD COUNT 2.5 10*3/uL (4.8-10.8)
[2023-09-20 06:23] LABS: MANUAL DIFF REFLEX YES
[2023-09-20 06:36] LABS: BUN 29 mg/dl (9-23); CHLORIDE 113 mmol/L (98-107); POTASSIUM 4.4 mmol/L (3.4-5.1)
[2023-09-20 08:00] VITALS: BP 132/85
[2023-09-20 08:13] LABS: ATYPICAL LYMPHS 1 % (0-0); BURR CELLS MODERATE; PLATELET SUFFICIENCY NORMAL (NORMAL); TOTAL CELLS COUNTED 100 #CELLS
[2023-09-20 12:00] VITALS: BP 132/82
[2023-09-20] MEDS ORDERED: SODIUM BICARBO325 M1 PO (12:21)
[2023-09-20] MEDS ORDERED: FOAM BANDAGE 1 EACH BANDAGE T ONE (15:49)
[2023-09-20] MEDS ORDERED: LEPTOSPERMUM HONEY 4 X 5 INCH WOUND DRESSING T ONE (15:50)
[2023-09-20] MEDS ORDERED: FOAM BANDAGE HEEL T ONE (15:50)
[2023-09-20 16:00] VITALS: BP 125/77
== END 2023-09-20 18:45 | disposition home or self-care (01) | DRG 720 ==
LOC: ED 16:43 → 4E 20:18 → EDHOLD 20:18 → 4E 21:54
PROVIDERS: Emergency Medicine; Family Medicine; Student in an Organized Health Care Education/Training Program; ADMIT Internal Medicine; ATTEND Internal Medicine
DX: A41.9 Sepsis, unspecified organism (principal); N17.0 Acute kidney failure with tubular necrosis; E43 Unspecified severe protein-calorie malnutrition; L89.150 Pressure ulcer of sacral region, unstageable; E87.1 Hypo-osmolality and hyponatremia; L89.611 Pressure ulcer of right heel, stage 1; L89.892 Pressure ulcer of other site, stage 2; J18.9 Pneumonia, unspecified organism; L89.626 Pressure-induced deep tissue damage of left heel; E87.20 Acidosis, unspecified; D64.9 Anemia, unspecified; N18.9 Chronic kidney disease, unspecified; E10.22 Type 1 diabetes mellitus with diabetic chronic kidney disease; J10.1 Influenza due to other identified influenza virus with other respiratory manifestations; E10.65 Type 1 diabetes mellitus with hyperglycemia; Z90.49 Acquired absence of other specified parts of digestive tract; Z83.3 Family history of diabetes mellitus; Z68.29 Body mass index [BMI] 29.0-29.9, adult; Z88.2 Allergy status to sulfonamides; Z88.1 Allergy status to other antibiotic agents; Z88.8 Allergy status to other drugs, medicaments and biological substances; Z88.5 Allergy status to narcotic agent; Z79.899 Other long term (current) drug therapy; Z79.4 Long term (current) use of insulin

== ENCOUNTER 2023-10-31 21:45 | Emergency (ER) | payer MEDICAID ==
[~2023-10-31] VITALS: Ht 149.8 cm; Wt 59.0 kg
[~2023-10-31 21:45] MED LIST changes: +SODIUM BICARBO325 M1 PO
[2023-10-31 22:00] LABS: BASO % 0.4 % (0.0-1.0); EOS # 0.1 10*3/uL (0.0-0.4); EOS % 2.7 % (1.0-4.0); HEMATOCRIT 32.5 % (42.0-52.0); LYMPH # 1.2 10*3/uL (1.3-4.4); LYMPH % 25.9 % (27.0-41.0); MEAN CORPUSCULAR HGB 27.4 pg (27.0-31.0); MEAN CORPUSCULAR HGB CONC 30.8 g/dl (33.0-37.0); MEAN PLATELET VOLUME 9.1 fl (9.6-12.3); MONO # 0.4 10*3/uL (0.1-1.0); MONO % 7.6 % (3.0-9.0); PLATELET COUNT AUTOMATED 264 10*3/uL (130-400); RED BLOOD COUNT 3.65 10*6/uL (4.50-5.90); RED CELL DISTRI WIDTH 14.6 % (0-14.5); WHITE BLOOD COUNT 4.8 10*3/uL (4.8-10.8)
[2023-10-31 22:15] LABS: BILIRUBIN Negative (Negative); BLOOD Trace-Lysed (Negative); CLARITY Turbid (Clear); COLOR Yellow (Yellow); GLUCOSE 3+ (Negative); KETONE Negative (Negative); LEUKO ESTERASE Negative (Negative); NITRITE Positive (Negative); UROBILINOGEN 0.2 E.U./dl (0.0-1.0)
[2023-10-31 22:23] LABS: BUN 24 mg/dl (9-23); CHLORIDE 101 mmol/L (98-107); POTASSIUM 4.4 mmol/L (3.4-5.1)
[2023-10-31 22:28] LABS: BACTERIA 4+
[2023-10-31] MEDS ORDERED: REMERON15 M2 PO (22:35)
[2023-10-31] MEDS ORDERED: GALZIN50 MG PO (22:36)
[2023-10-31] MEDS ORDERED: PRAVASTATIN SOD10 MG PO (22:37)
[2023-10-31] MEDS ORDERED: INSULIN REGULAR, HUMAN 1 UNIT/0.01 ML SC ONE (22:40)
[2023-10-31] MEDS ORDERED: Ciprofloxacin Hydrochloride 500 MG TAB PO ONE (23:00)
[2023-10-31] MEDS ORDERED: POWERADE 1 LITER PO ONE (23:17)
[2023-11-01] MEDS ORDERED: INSULIN REGULAR, HUMAN 1 UNIT/0.01 ML SC ONE ×3 (00:45→02:55)
[2023-11-01] MEDS ORDERED: POWERADE 1 LITER PO ONE (02:00)
[2023-11-01] MEDS ORDERED: CIPRO500 MG PO (03:45)
== END 2023-11-01 04:09 | disposition home or self-care (01) ==
LOC: ED 21:45
PROVIDERS: Internal Medicine
DX: N39.0 Urinary tract infection, site not specified (principal); N17.9 Acute kidney failure, unspecified; E10.65 Type 1 diabetes mellitus with hyperglycemia; D64.9 Anemia, unspecified; E10.22 Type 1 diabetes mellitus with diabetic chronic kidney disease; N18.9 Chronic kidney disease, unspecified; Z88.1 Allergy status to other antibiotic agents; Z88.2 Allergy status to sulfonamides; Z88.8 Allergy status to other drugs, medicaments and biological substances; Z91.040 Latex allergy status; Z79.899 Other long term (current) drug therapy; Z90.49 Acquired absence of other specified parts of digestive tract

== ENCOUNTER 2023-12-09 17:45 | Emergency (ER) | payer MEDICAID ==
[~2023-12-09] VITALS: Ht 149.8 cm; Wt 64.0 kg
[~2023-12-09 17:45] MED LIST changes: +GALZIN50 MG PO; +PRAVASTATIN SOD10 MG PO
[2023-12-09 18:25] LABS: BASO % 0.4 % (0.0-1.0); EOS # 0.2 10*3/uL (0.0-0.4); EOS % 2.7 % (1.0-4.0); HEMATOCRIT 31.5 % (42.0-52.0); LYMPH # 1.4 10*3/uL (1.3-4.4); LYMPH % 25.2 % (27.0-41.0); MEAN CORPUSCULAR HGB 27.1 pg (27.0-31.0); MEAN CORPUSCULAR HGB CONC 30.8 g/dl (33.0-37.0); MEAN PLATELET VOLUME 9.2 fl (9.6-12.3); MONO # 0.4 10*3/uL (0.1-1.0); MONO % 7.6 % (3.0-9.0); NEUT # 3.6 10*3/uL (2.3-7.9); NEUT % 63.6 % (47.0-73.0); PLATELET COUNT AUTOMATED 288 10*3/uL (130-400); RED BLOOD COUNT 3.58 10*6/uL (4.50-5.90); RED CELL DISTRI WIDTH 14.2 % (0-14.5); VENOUS PH 7.44 (7.37-7.45); WHITE BLOOD COUNT 5.6 10*3/uL (4.8-10.8)
[2023-12-09 18:46] LABS: BILIRUBIN Negative (Negative); BLOOD Trace-Intact (Negative); CLARITY Clear (Clear); COLOR Yellow (Yellow); GLUCOSE 3+ (Negative); KETONE Negative (Negative); LEUKO ESTERASE Negative (Negative); NITRITE Negative (Negative); PH 6.5 (4.5-8.0); UROBILINOGEN 0.2 E.U./dl (0.0-1.0)
[2023-12-09 18:58] LABS: BACTERIA 3+
[2023-12-09 19:57] LABS: ALKALINE PHOSPHATASE 210 U/L (46-116); BUN 30 mg/dl (9-23); CHLORIDE 102 mmol/L (98-107); POTASSIUM 4.4 mmol/L (3.4-5.1); TOTAL PROTEIN 6.5 gm/dL (6.0-8.0)
[2023-12-09 20:06] LABS: SGPT/ALT < 7 U/L (5-49)
[2023-12-09] MEDS ORDERED: INSULIN REGULAR, HUMAN 1 UNIT/0.01 ML SC ONE (20:15)
== END 2023-12-09 21:06 | disposition home or self-care (01) ==
LOC: ED 17:45
PROVIDERS: Physician Assistant Medical
DX: E10.65 Type 1 diabetes mellitus with hyperglycemia (principal); Z88.1 Allergy status to other antibiotic agents; Z88.2 Allergy status to sulfonamides; Z88.6 Allergy status to analgesic agent; Z88.8 Allergy status to other drugs, medicaments and biological substances; Z79.899 Other long term (current) drug therapy; Z79.4 Long term (current) use of insulin; Z90.49 Acquired absence of other specified parts of digestive tract

== ENCOUNTER 2024-01-30 12:27 | Emergency (ER) | payer MEDICAID ==
[2024-01-30] MEDS ORDERED: methylPREDNISolone sod succ 125 MG VIAL IM ONE (13:00)
[2024-01-30] MEDS ORDERED: hydrOXYzine hydrochloride 50 MG/ML VIAL IM ONE (13:00)
[2024-01-30] MEDS ORDERED: FAMOTIDINE 20 MG TAB PO ONE (13:00)
[2024-01-30] MEDS ORDERED: VIBRAMYCIN100 MG PO (14:31)
[2024-01-30] MEDS ORDERED: MEDROL DOSEPAK4 MG PO (14:31)
== END 2024-01-30 17:46 | disposition home or self-care (01) ==
LOC: ED 12:27
DX: R60.0 Localized edema (principal); T36.8X5A Adverse effect of other systemic antibiotics, initial encounter; T37.8X5A Adverse effect of other specified systemic anti-infectives and antiparasitics, initial encounter; E11.9 Type 2 diabetes mellitus without complications; Z88.1 Allergy status to other antibiotic agents; Z88.2 Allergy status to sulfonamides; Z88.6 Allergy status to analgesic agent; Z88.8 Allergy status to other drugs, medicaments and biological substances; Z91.040 Latex allergy status; Z79.4 Long term (current) use of insulin; Z90.49 Acquired absence of other specified parts of digestive tract; Y92.89 Other specified places as the place of occurrence of the external cause

== ENCOUNTER → 2024-02-01 | Outpatient (CLI) | payer MEDICAID ==
[~2024-02-01] MED LIST changes: +MEDROL DOSEPAK4 MG PO; +VIBRAMYCIN100 MG PO
[2024-02-01 17:23] LABS: BILIRUBIN Negative (Negative); BLOOD 1+ (Negative); CLARITY Cloudy (Clear); COLOR Yellow (Yellow); GLUCOSE Trace (Negative); KETONE Negative (Negative); LEUKO ESTERASE 2+ (Negative); NITRITE Negative (Negative); UROBILINOGEN 0.2 E.U./dl (0.0-1.0)
[2024-02-01 17:33] LABS: BACTERIA 3+; EPITHELIAL CELLS 0-2; WBC 41-50 wbc/hpf (0-5)
== END | disposition home or self-care (01) ==
LOC: LAB 15:23
PROVIDERS: ATTEND Internal Medicine
DX: N23 Unspecified renal colic (principal)

== ENCOUNTER → 2024-03-27 | Outpatient (CLI) | payer MEDICAID ==
[2024-03-27 13:16] LABS: BILIRUBIN Negative (Negative); BLOOD Trace-Lysed (Negative); CLARITY Turbid (Clear); COLOR Yellow (Yellow); GLUCOSE 1+ (Negative); KETONE Negative (Negative); LEUKO ESTERASE 1+ (Negative); NITRITE Positive (Negative); PH 6.5 (4.5-8.0); UROBILINOGEN 0.2 E.U./dl (0.0-1.0)
[2024-03-27 13:47] LABS: BACTERIA 3+
== END | disposition home or self-care (01) ==
LOC: LAB 10:46
PROVIDERS: ATTEND Internal Medicine
DX: N23 Unspecified renal colic (principal)

== ENCOUNTER → 2024-06-07 | Outpatient (CLI) | payer MEDICAID ==
[2024-06-07 14:27] LABS: BILIRUBIN Negative (Negative); BLOOD Trace-Lysed (Negative); CLARITY Cloudy (Clear); COLOR Yellow (Yellow); GLUCOSE 3+ (Negative); KETONE 1+ (Negative); LEUKO ESTERASE Trace (Negative); NITRITE Negative (Negative); PH 6.5 (4.5-8.0); UROBILINOGEN 0.2 E.U./dl (0.0-1.0)
[2024-06-07 14:54] LABS: BACTERIA 3+
== END | disposition home or self-care (01) ==
LOC: LAB 12:21
PROVIDERS: ATTEND Internal Medicine
DX: N23 Unspecified renal colic (principal)

== ENCOUNTER 2024-09-01 08:28 | Emergency (ER) | payer MEDICAID ==
[~2024-09-01] VITALS: Ht 149.8 cm; Wt 61.2 kg
[~2024-09-01 08:28] MED LIST changes: +ATORVASTATIN CA10 M1 PO; +ERTAPENEM1 GM IM
== END 2024-09-01 09:51 | disposition home or self-care (01) ==
LOC: ED 08:28
DX: K59.00 Constipation, unspecified (principal); E11.9 Type 2 diabetes mellitus without complications; Z79.4 Long term (current) use of insulin; Z88.1 Allergy status to other antibiotic agents; Z88.2 Allergy status to sulfonamides; Z88.6 Allergy status to analgesic agent; Z88.5 Allergy status to narcotic agent; Z88.8 Allergy status to other drugs, medicaments and biological substances; Z91.040 Latex allergy status; Z90.49 Acquired absence of other specified parts of digestive tract; Z98.890 Other specified postprocedural states

== ENCOUNTER → 2024-09-02 | Outpatient (CLI) | payer MEDICAID ==
[2024-09-02 12:01] LABS: BASO % 0.3 % (0.0-1.0); EOS # 0.2 10*3/uL (0.0-0.4); EOS % 2.5 % (1.0-4.0); HEMATOCRIT 32.8 % (42.0-52.0); MEAN CELL VOLUME 87.7 fl (80.0-94.0); MEAN CORPUSCULAR HGB CONC 30.8 g/dl (33.0-37.0); MEAN PLATELET VOLUME 8.9 fl (9.6-12.3); MONO # 0.8 10*3/uL (0.1-1.0); MONO % 11.3 % (3.0-9.0); NEUT # 3.7 10*3/uL (2.3-7.9); NEUT % 52.4 % (47.0-73.0); PLATELET COUNT AUTOMATED 323 10*3/uL (130-400); RED BLOOD COUNT 3.74 10*6/uL (4.50-5.90); RED CELL DISTRI WIDTH 15.4 % (0-14.5); RETICULOCYTE % 2.67 % (0.50-2.50); WHITE BLOOD COUNT 7.1 10*3/uL (4.8-10.8)
== END | disposition home or self-care (01) ==
LOC: LAB 11:12
PROVIDERS: ATTEND Nurse Practitioner Family
DX: Z12.5 Encounter for screening for malignant neoplasm of prostate (principal); E11.9 Type 2 diabetes mellitus without complications; D64.9 Anemia, unspecified; N39.0 Urinary tract infection, site not specified

== ENCOUNTER → 2024-09-18 | Outpatient (CLI) | payer MEDICAID ==
[2024-09-18 10:18] LABS: BASO % 0.4 % (0.0-1.0); EOS # 0.2 10*3/uL (0.0-0.4); EOS % 4.1 % (1.0-4.0); HEMATOCRIT 31.9 % (42.0-52.0); MEAN CELL VOLUME 90.6 fl (80.0-94.0); MEAN CORPUSCULAR HGB 26.7 pg (27.0-31.0); MEAN CORPUSCULAR HGB CONC 29.5 g/dl (33.0-37.0); MEAN PLATELET VOLUME 8.6 fl (9.6-12.3); MONO # 0.5 10*3/uL (0.1-1.0); MONO % 8.3 % (3.0-9.0); NEUT # 2.9 10*3/uL (2.3-7.9); NEUT % 53.2 % (47.0-73.0); PLATELET COUNT AUTOMATED 401 10*3/uL (130-400); RED BLOOD COUNT 3.52 10*6/uL (4.50-5.90); RED CELL DISTRI WIDTH 14.3 % (0-14.5); WHITE BLOOD COUNT 5.4 10*3/uL (4.8-10.8)
[2024-09-18 11:11] LABS: ALKALINE PHOSPHATASE 225 U/L (46-116); BUN 36 mg/dl (9-23); CHLORIDE 107 mmol/L (98-107); POTASSIUM 4.5 mmol/L (3.4-5.1); SGPT/ALT 9 U/L (5-49); TOTAL PROTEIN 6.5 gm/dL (6.0-8.0)
== END | disposition home or self-care (01) ==
LOC: LAB 09:46
PROVIDERS: ATTEND Urology
DX: D40.0 Neoplasm of uncertain behavior of prostate (principal); R53.83 Other fatigue

== ENCOUNTER 2024-11-20 12:49 | Emergency (ER) | payer MEDICAID ==
[2024-11-20] MEDS ORDERED: SODIUM CHLORIDE 0.9% 1,000 ML IV ONE ×2 (13:30→14:50)
[2024-11-20] MEDS ORDERED: cefTRIAXone Sodium 1 GM/10 ML SYR IV ONE (13:35)
[2024-11-20] MEDS ORDERED: Clindamycin Phosphate 50 ML IV ONE (13:35)
[2024-11-20 14:23] LABS: BASO % 0.5 % (0.0-1.0); EOS # 0.2 10*3/uL (0.0-0.4); EOS % 2.4 % (1.0-4.0); HEMATOCRIT 37.8 % (42.0-52.0); MEAN CELL VOLUME 88.3 fl (80.0-94.0); MEAN CORPUSCULAR HGB 27.1 pg (27.0-31.0); MEAN CORPUSCULAR HGB CONC 30.7 g/dl (33.0-37.0); MONO # 0.5 10*3/uL (0.1-1.0); MONO % 7.7 % (3.0-9.0); NEUT # 3.5 10*3/uL (2.3-7.9); NEUT % 55.1 % (47.0-73.0); PLATELET COUNT AUTOMATED 275 10*3/uL (130-400); RED BLOOD COUNT 4.28 10*6/uL (4.50-5.90); RED CELL DISTRI WIDTH 15.4 % (0-14.5); WHITE BLOOD COUNT 6.3 10*3/uL (4.8-10.8)
[2024-11-20 14:37] LABS: ACT PARTIAL THROMBO TIME 25.7 SECONDS (20.0-32.1)
[2024-11-20 14:46] LABS: ALKALINE PHOSPHATASE 249 U/L (46-116); BUN 48 mg/dl (9-23); CHLORIDE 104 mmol/L (98-107); LIPASE 34 U/L (12-53); POTASSIUM 4.1 mmol/L (3.4-5.1); SGPT/ALT 21 U/L (5-49); TOTAL PROTEIN 7.4 gm/dL (6.0-8.0)
[2024-11-20 17:39] LABS: BILIRUBIN Negative (Negative); BLOOD 1+ (Negative); CLARITY Turbid (Clear); COLOR Yellow (Yellow); GLUCOSE Negative (Negative); KETONE Negative (Negative); LEUKO ESTERASE 3+ (Negative); NITRITE Positive (Negative); PH 7.5 (4.5-8.0); UROBILINOGEN 0.2 E.U./dl (0.0-1.0)
[2024-11-20] MEDS ORDERED: Lidocaine Hydrochloride 5 ML AMP IM ONE (18:05)
[2024-11-20 18:48] LABS: BACTERIA 4+; TRIP PHOS CRYSTALS 2+
== END 2024-11-20 22:36 | disposition short-term general hospital (02) ==
LOC: ED 12:49
PROVIDERS: Emergency Medicine
DX: S81.802A Unspecified open wound, left lower leg, initial encounter (principal); S81.801A Unspecified open wound, right lower leg, initial encounter; G82.20 Paraplegia, unspecified; K92.2 Gastrointestinal hemorrhage, unspecified; E11.65 Type 2 diabetes mellitus with hyperglycemia; M79.89 Other specified soft tissue disorders; K92.1 Melena; Z88.1 Allergy status to other antibiotic agents; Z88.2 Allergy status to sulfonamides; Z88.6 Allergy status to analgesic agent; Z91.040 Latex allergy status; Z79.899 Other long term (current) drug therapy; Z79.4 Long term (current) use of insulin; Z90.49 Acquired absence of other specified parts of digestive tract; X58.XXXA Exposure to other specified factors, initial encounter; Y93.89 Activity, other specified; Y92.89 Other specified places as the place of occurrence of the external cause; Y99.8 Other external cause status

== ENCOUNTER → 2024-12-18 | Outpatient (CLI) | payer MEDICAID ==
[2024-12-18 11:20] LABS: BASO % 0.5 % (0.0-1.0); EOS # 0.3 10*3/uL (0.0-0.4); EOS % 5.1 % (1.0-4.0); HEMATOCRIT 36.2 % (42.0-52.0); MEAN CELL VOLUME 89.8 fl (80.0-94.0); MEAN CORPUSCULAR HGB 27.3 pg (27.0-31.0); MEAN CORPUSCULAR HGB CONC 30.4 g/dl (33.0-37.0); MONO # 0.6 10*3/uL (0.1-1.0); MONO % 8.7 % (3.0-9.0); NEUT # 3.9 10*3/uL (2.3-7.9); NEUT % 59.2 % (47.0-73.0); PLATELET COUNT AUTOMATED 265 10*3/uL (130-400); RED BLOOD COUNT 4.03 10*6/uL (4.50-5.90); RED CELL DISTRI WIDTH 16.1 % (0-14.5); WHITE BLOOD COUNT 6.7 10*3/uL (4.8-10.8)
[2024-12-18 11:57] LABS: ALKALINE PHOSPHATASE 209 U/L (46-116); BUN 53 mg/dl (9-23); CHLORIDE 110 mmol/L (98-107); CHOLESTEROL 188 mg/dL (<200); FREE T4 1.15 ng/dl (0.89-1.76); GAMMA GLUTAMYL TRANSPEPTIDASE 131 U/L (0-73); LDL CHOLESTEROL 122 mg/dL (9-159); SGPT/ALT 13 U/L (5-49); TOTAL PROTEIN 7.3 gm/dL (6.0-8.0); TRIGLYCERIDES 120 mg/dl (<150)
== END | disposition home or self-care (01) ==
LOC: LAB 10:44
PROVIDERS: ATTEND Internal Medicine
DX: Z12.5 Encounter for screening for malignant neoplasm of prostate (principal); N31.9 Neuromuscular dysfunction of bladder, unspecified; E10.9 Type 1 diabetes mellitus without complications; E87.5 Hyperkalemia; N13.0 Hydronephrosis with ureteropelvic junction obstruction; N34.2 Other urethritis

== ENCOUNTER 2025-02-14 11:21 | Emergency (ER) | payer MEDICAID ==
[~2025-02-14] VITALS: Ht 149.8 cm; Wt 60.3 kg
[~2025-02-14 11:21] MED LIST changes: +LACTULOSE10 GM/151 PO; +PANTOPRAZOLE SO40 MG PO
[2025-02-14] MEDS ORDERED: SODIUM POLYSTYRENE SULFONATE 15 GM/60 ML BOT PO ONE (11:30)
[2025-02-14] MEDS ORDERED: MAGNESIUM CITRATE 296 ML BOT PO ONE (11:30)
[2025-02-14] MEDS ORDERED: MAGNESIUM CITRATE 296 ML BOT ONE (12:05)
[2025-02-14] MEDS ORDERED: SODIUM POLYSTYRENE SULFONATE 15 GM/60 ML BOT ONE (12:05)
[2025-02-14] MEDS ORDERED: COLACE 2-IN-11 EACH PO (13:07)
== END 2025-02-14 13:09 | disposition home or self-care (01) ==
LOC: ED 11:21
DX: K59.00 Constipation, unspecified (principal); E10.9 Type 1 diabetes mellitus without complications; I10 Essential (primary) hypertension; E78.5 Hyperlipidemia, unspecified; Z88.1 Allergy status to other antibiotic agents; Z88.2 Allergy status to sulfonamides; Z88.6 Allergy status to analgesic agent; Z91.040 Latex allergy status; Z79.899 Other long term (current) drug therapy; Z79.4 Long term (current) use of insulin; Z98.890 Other specified postprocedural states; Z90.49 Acquired absence of other specified parts of digestive tract

== ENCOUNTER → 2025-03-31 | Outpatient (CLI) | payer MEDICAID ==
[~2025-03-31] MED LIST changes: +COLACE 2-IN-11 EACH PO
[2025-03-31 16:04] LABS: BASO # 0.0 10*3/uL (0.0-0.1); BASO % 0.4 % (0.0-1.0); EOS # 0.1 10*3/uL (0.0-0.4); EOS % 2.6 % (1.0-4.0); MEAN CELL VOLUME 94.2 fl (80.0-94.0); MEAN CORPUSCULAR HGB 27.9 pg (27.0-31.0); MEAN PLATELET VOLUME 9.0 fl (9.6-12.3); MONO # 0.4 10*3/uL (0.1-1.0); MONO % 9.2 % (3.0-9.0); NEUT # 2.6 10*3/uL (2.3-7.9); NEUT % 54.6 % (47.0-73.0); NUCLEATED RED BLOOD CELL 0.0 % (0.0-0.0); NUCLEATED RED BLOOD CELL 0.0 10*3/uL (0.0-0.0); PLATELET COUNT AUTOMATED 219 10*3/uL (130-400); RED CELL DISTRI WIDTH 14.8 % (0-14.5)
[2025-03-31 16:42] LABS: BUN 45 mg/dl (9-23); LDL CHOLESTEROL 115 mg/dL (9-159); SGPT/ALT 11 U/L (5-49)
== END ==
LOC: LAB 14:51
PROVIDERS: ATTEND Nurse Practitioner Family
DX: N17.9 Acute kidney failure, unspecified (principal); G62.9 Polyneuropathy, unspecified; D64.9 Anemia, unspecified; N13.30 Unspecified hydronephrosis; R82.90 Unspecified abnormal findings in urine; E10.9 Type 1 diabetes mellitus without complications

== ENCOUNTER → 2025-04-01 | Outpatient (CLI) | payer MEDICAID ==
[2025-04-01 16:48] LABS: BILIRUBIN Negative (Negative); BLOOD Trace-Lysed (Negative); CLARITY Clear (Clear); COLOR Yellow (Yellow); KETONE Negative (Negative); LEUKO ESTERASE 1+ (Negative); NITRITE Negative (Negative); PH 6.5 (4.5-8.0); SPECIFIC GRAVITY 1.010 (1.001-1.030); UROBILINOGEN 0.2 E.U./dl (0.0-1.0)
[2025-04-01 17:09] LABS: BACTERIA 2+; WBC 31-40 wbc/hpf (0-5)
== END ==
LOC: LAB 15:41
PROVIDERS: ATTEND Nurse Practitioner Family
DX: E11.39 Type 2 diabetes mellitus with other diabetic ophthalmic complication (principal); A49.9 Bacterial infection, unspecified; D64.9 Anemia, unspecified; Z16.12 Extended spectrum beta lactamase (ESBL) resistance; H54.3 Unqualified visual loss, both eyes; L89.893 Pressure ulcer of other site, stage 3

== ENCOUNTER → 2025-05-05 | Outpatient (CLI) | payer MEDICAID ==
[2025-05-05 14:32] LABS: SGPT/ALT 24 U/L (5-49)
[2025-05-05 14:47] LABS: BUN 33 mg/dl (9-23)
== END | disposition home or self-care (01) ==
LOC: US 12:57 → LAB 12:57 → US 13:00
PROVIDERS: ATTEND Urology
DX: N13.30 Unspecified hydronephrosis (principal)

== ENCOUNTER → 2025-05-12 | Outpatient (CLI) | payer MEDICAID ==
[2025-05-12 08:44] LABS: BASO # 0.0 10*3/uL (0.0-0.1); BASO % 0.4 % (0.0-1.0); EOS # 0.1 10*3/uL (0.0-0.4); EOS % 2.1 % (1.0-4.0); MEAN CELL VOLUME 90.0 fl (80.0-94.0); MEAN CORPUSCULAR HGB 28.0 pg (27.0-31.0); MEAN PLATELET VOLUME 8.9 fl (9.6-12.3); MONO # 0.4 10*3/uL (0.1-1.0); MONO % 7.8 % (3.0-9.0); NEUT # 3.3 10*3/uL (2.3-7.9); NEUT % 61.5 % (47.0-73.0); NUCLEATED RED BLOOD CELL 0.0 % (0.0-0.0); NUCLEATED RED BLOOD CELL 0.0 10*3/uL (0.0-0.0); PLATELET COUNT AUTOMATED 211 10*3/uL (130-400); RED CELL DISTRI WIDTH 15.1 % (0-14.5)
== END | disposition home or self-care (01) ==
LOC: LAB 01:28
PROVIDERS: ATTEND Urology
DX: N13.30 Unspecified hydronephrosis (principal)

== ENCOUNTER 2025-06-23 13:41 | Emergency (ER) | payer MEDICAID ==
[~2025-06-23] VITALS: Ht 149.8 cm; Wt 64.9 kg
[2025-06-23 14:03] LABS: BILIRUBIN Negative (Negative); BLOOD 1+ (Negative); CLARITY Turbid (Clear); COLOR Yellow (Yellow); KETONE Negative (Negative); LEUKO ESTERASE 2+ (Negative); NITRITE Positive (Negative); PH 7.5 (4.5-8.0); SPECIFIC GRAVITY 1.010 (1.001-1.030); UROBILINOGEN 0.2 E.U./dl (0.0-1.0)
[2025-06-23 14:16] LABS: BACTERIA 4+; RBC 0-2 rbc/hpf (0-2)
[2025-06-23 15:01] LABS: BASO # 0.0 10*3/uL (0.0-0.1); BASO % 0.3 % (0.0-1.0); EOS # 0.1 10*3/uL (0.0-0.4); EOS % 1.8 % (1.0-4.0); MEAN CELL VOLUME 89.5 fl (80.0-94.0); MEAN CORPUSCULAR HGB 28.4 pg (27.0-31.0); MEAN PLATELET VOLUME 9.1 fl (9.6-12.3); MONO # 0.5 10*3/uL (0.1-1.0); MONO % 7.3 % (3.0-9.0); NEUT # 4.4 10*3/uL (2.3-7.9); NEUT % 60.1 % (47.0-73.0); NUCLEATED RED BLOOD CELL 0.0 % (0.0-0.0); NUCLEATED RED BLOOD CELL 0.0 10*3/uL (0.0-0.0); PLATELET COUNT AUTOMATED 243 10*3/uL (130-400); RED CELL DISTRI WIDTH 13.9 % (0-14.5)
[2025-06-23 15:15] LABS: BUN 44.0 mg/dl (9-23)
== END 2025-06-23 17:02 | disposition home or self-care (01) ==
LOC: ED 13:41
PROVIDERS: Student in an Organized Health Care Education/Training Program
DX: N39.0 Urinary tract infection, site not specified (principal); E11.65 Type 2 diabetes mellitus with hyperglycemia; Z98.890 Other specified postprocedural states; Z90.49 Acquired absence of other specified parts of digestive tract; Z88.1 Allergy status to other antibiotic agents; Z88.2 Allergy status to sulfonamides; Z88.5 Allergy status to narcotic agent; Z88.8 Allergy status to other drugs, medicaments and biological substances; Z91.040 Latex allergy status